=== PATIENT | female | born 1930 | race Caucasian/White ===

== ENCOUNTER 2016-11-01 16:04 | Inpatient (IN) | payer MEDICARE, OTHER ==
[~2016-11-01] VITALS: Ht 160 cm; Wt 67.9 kg
[~2016-11-01 16:04] MED LIST: ALDS; AMIO200T2 PO; CAR120SR PO; DABI150C PO; DIGO125T6 PO; FURO-109 PO; LEVO500V2 PO; LOSA25TA5 PO; METO100T PO; VENL150C94 PO
--- NOTE | 2016-11-01 16:32 | CONS ---
Date/Time of Note Date/Time of Note DATE: 11/01/16 TIME: 16:29 Assessment/Plan Assessment/Plan Chief Complaint/Hosp Course Bradycardia- 2:1 av block on ekg, has rbbb and prolonged pr interval, unclear if supra/infranodal. pt given atrop 0.5 then 1mg iv, hr improved to 36. on dopamine 5cmg as well. remains stable/asymptomatic. given hemodynamic stability and asymptomatic will hold off on temporary pacemaker placement. will watch in ICU on dopamine gtt, atropine at bedside. if symptoms develop or rhythm becomes unstable will need urgent temp ppm placement. - f/u labs, tsh/ft4 - icu monitoring - dopamine gtt can titrate if hr stays < 30 - atropine at bedside, prn - pacer pads - hold metoprolol, amiodraone - npo at mn, potential need for pacemaker but if stable may postpone to see if medication related PAF- hold meds HTN- hold any bp meds Problems: Consultation Date/Type/Reason Admit Date/Time 11/01/2016 Date of Consultation: Nov 01, 2016 Type of Consultation: Cardiology Reason for Consultation Heart Block Referring Provider: BARBARA COATS MD Hx of Present Illness pt seen in pcp office, found to have HR of 25, 2:1 heart block on ecg. sent to ED. pt states no cp/sob. ambulatory no dizziness, lightheadedness. no fainting syncope. pt does have fatigue she states, has noted slow pulse for some time. does not check hr at home. pt hesitatnt to proceed to ed, convinced by family to fainally present. in ed initial sbp 180/60 manual. automatic cuff can not filler picker bp. pt asymptomatic,. ekg with sinus rhythm, 2:1 av block. hr 25 bpm, rbbb. Constitutional: other (fatigue) Eyes: no complaints ENT: no complaints Respiratory: no complaints Gastrointestinal: no complaints Genitourinary: no complaints Musculoskeletal: no complaints Skin: no complaints Neurologic: no complaints Psychological: no complaints Past Medical History Atrial fibrillation (427.31) (I48.91) Cardioverted to NSR by electric D/C cardioversion Feb 2013 Congestive heart failure (428.0) (I50.9) Essential hypertension (401.9) (I10) Fibromyalgia (729.1) (M79.7) Hyperlipidemia (272.4) (E78.5) Hypothyroidism (244.9) (E03.9) Sinus bradycardia (427.89) (R00.1) Past Medical History History of fibromyositis (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) (Z87.39) History of Hyperthyroidism (242.90) (E05.90) TReated with radioactive iodine and became hypothyroid Past Surgical History Past Surgical Hx: other (hysterectomy) Family History Significant Family History: other (no high risk cad) Social History Smoking Status: Never smoker Drug Use: none Exam/Review of Systems Vital Signs Vitals Vital Signs Date Time Temp Pulse Resp B/P Pulse Ox O2 Delivery O2 Flow Rate FiO2 11/01/16 16:07 97.5 32 20 97 Exam Constitutional: alert, oriented, well developed Psych: nl mood/affect, no complaints Head: atraumatic, normocephalic Eyes: nl conjunctiva ENMT: nl external ears & nose, nl lips & teeth, nl nasal mucosa & septum Neck: non-tender, supple, No jvd Respiratory: clear to auscultation, normal air movement Cardiovascular: edema (1+ ble ankles), nl pulses, regular rate and rhythm, systolic murmur Gastrointestinal: non-tender, soft Musculoskeletal: nl extremities to inspection Extremities: normal pulses Neurological: SYSTEM SUPPORT TECHNICIAN II-XII intact, nl mental status, nl speech Skin: nl turgor Procedures Procedures CXR images reviewed: clear EKG per hpi CHAO CALHOUN Nov 01, 2016 16:32
[2016-11-01] MEDS: DOPamine-D5W 1.6 MG/ML 250 ML IV SCH ×2 (17:01→22:39)
--- NOTE | 2016-11-01 17:06 | RADRPT ---
PROCEDURE: XR Chest. CLINICAL INDICATION: Shortness of breath. TECHNIQUE: Single frontal view. COMPARISON: 10/18/2012. FINDINGS: The lungs are clear. The heart is mildly enlarged. There is calcification in the aorta consistent with atherosclerosis. There is no pleural effusion or pneumothorax. There is right shoulder calcific tendonitis. IMPRESSION: 1. Mild cardiomegaly. 2. Atherosclerosis. 3. Right shoulder calcific tendonitis. RPTAT: QQ .Pio Combs MD, MD Date Time Electronically viewed and signed by .Pio Combs MD, MD on 11/01/2016 17:06 .R/
[2016-11-01 17:30] LABS: BASOPHILS % 0.8 % (0.0-2.0); EOSINOPHILS # 0.1 10^3/ul (0.0-0.5); EOSINOPHILS % 1.3 % (0.0-7.0); HEMATOCRIT 35.7 % (37.0-47.0); LYMPHOCYTES # 1.3 10^3/ul (0.8-2.9); LYMPHOCYTES % 24.9 % (15.0-51.0); MEAN CORPUSCULAR HEMOGLOBIN 35.9 pg (29.0-33.0); MEAN CORPUSCULAR HGB CONC 33.6 g/dl (32.0-37.0); MEAN CORPUSCULAR VOLUME 106.9 fl (82.0-101.0); MEAN PLATELET VOLUME 11.1 fl (7.4-10.4); MONOCYTE # 0.7 10^3/ul (0.3-0.9); NEUTROPHIL # 3.1 10^3/ul (1.6-7.5); NEUTROPHILS % 59.6 % (39.0-77.0); PLATELET COUNT 155 10^3/UL (140-415); RED BLOOD COUNT 3.34 10^6/ul (4.20-5.40); RED CELL DISTRIBUTION WIDTH 13.2 % (11.5-14.5); WHITE BLOOD COUNT 5.2 10^3/ul (4.8-10.8)
[2016-11-01] MEDS ORDERED: AMIO100T4 PO (17:31)
[2016-11-01] MEDS ORDERED: FURO40TA4 PO (17:32)
[2016-11-01] MEDS ORDERED: LEVO137T3 PO (17:32)
[2016-11-01] MEDS ORDERED: METO100T13 PO (17:33)
[2016-11-01] MEDS ORDERED: LOSA25TA5 PO (17:33)
[2016-11-01] MEDS ORDERED: DABI150C PO (17:34)
[2016-11-01] MEDS ORDERED: ALDS PO (17:35)
[2016-11-01] MEDS: DEXTROSE 5%-0.45% NACL 1,000 ML IV SCH (17:46)
[2016-11-01 17:50] LABS: INR 2.84; PROTIME 30.2 Sec (12.2-14.2); PT RATIO 2.4
[2016-11-01 17:53] LABS: CALCIUM 9.6 mg/dl (8.4-10.2); CREATININE 1.81 mg/dl (0.44-1.00); POTASSIUM 4.6 mmol/L (3.5-5.1)
[2016-11-01 17:57] LABS: PARTIAL THROMBOPLASTIN TIME 91.5 Sec (25.0-35.0)
[2016-11-01] MEDS ORDERED: ATROPINE 1 MG/10 ML SYRINGE IV ONE ×2 (18:00)
[2016-11-01] MEDS ORDERED: BISACODYL (EC) 5 MG TAB PO PRN (18:00)
[2016-11-01] MEDS ORDERED: ONDANSETRON 4 MG INJ IV PRN (18:00)
[2016-11-01] MEDS ORDERED: ALBUTEROL 0.083% (NEB) 2.5 MG/3 ML AMP NEB PRN (18:00)
[2016-11-01 18:05] LABS: TROPONIN-I 0.013 ng/ml (0.00-0.12)
[2016-11-01] MEDS ORDERED: PRAV40TA76 PO (19:30)
[2016-11-01] MEDS ORDERED: TRAM-40 PO (19:31)
[2016-11-01] MEDS ORDERED: DULO60CA59 PO (19:32)
[2016-11-01] MEDS ORDERED: VENL75TA PO (19:33)
--- NOTE | 2016-11-01 20:49 | HP ---
DATE OF ADMISSION: 11/01/2016 HISTORY OF PRESENT ILLNESS: This is one of several [facility] admissions for this 85-year-old woman admitted with chief complaint of weakness and extreme bradycardia. Mrs. Herzog is an 85-year-old patient of mine who was seen in my office today complaining of somewhat being weak. Upon attempting to get her blood pressure it was obtainable with great difficulty, noted that her pulse rate was quite low. The patient was hooked up to EKG machine and noted that her heart rate was somewhere between 25 and 30, blood pressure in the low 100's by palpation and the patient was brought to the emergency room from my office with the above complaints after consultation with her beater out leveling machine, Dr. Tommy Carrion. The patient had been taking the following medications at this point in time, duloxetine 60 mg a day, Lasix 40 mg a day, losartan 25 mg a day, metoprolol succinate 100 mg ER 1 tablet daily, Pradaxa 150 mg 1 twice a day, pravastatin 40 mg 1 tablet a day, aldactone 25 mg half a tablet daily, Synthroid 137 mcg daily, tramadol 50 mg 2 tablets 3 times a day as needed for pain and Tylenol 325 mg p.r.n. Of all those agents the beta-young being the primary one that could affect her heart rate. These medications were all prescribed to her after being hospitalized with congestive heart failure and new onset atrial fibrillation in 2012. The pulse rate was surprisingly asymptomatic, however, on deepening questions she has had more fatigue and more difficulty getting around due to " weakness". PAST HOSPITALIZATIONS: From a medical standpoint her initial episodes of heart failure and congestive heart failure and new onset atrial fibrillation. Also surgically had a hysterectomy, her ovaries left in place. Her deliveries were all vaginal and other than this episode really has had no other medical hospitalizations, at least not any that she recalls. SOCIAL HISTORY: Patient is a and has 5 children, 11 grandchildren and great grandchildren. She does not smoke. Alcohol socially. Does drink coffee. She usually has no difficulty sleeping at night. FAMILY HISTORY: Both parents are . Father age 90 of old age. Mother 76 had heart issues. Four siblings who are in good health. There is a family history of heart disease arthritis, thyroid issues, and questionably also family history of cancer. REVIEW OF SYSTEMS: HEENT: Denies any significant headaches other than tension headaches. No dizziness or other complaints, however, she does have a balance issue. CARDIORESPIRATORY: Denies any recent palpitations. No chest pain or shortness of breath. GASTROINTESTINAL: No melena or hematemesis. Does have some signs of irritable bowel, as well as hyperacidity. GENITOURINARY: Does have urgency. Occasional frequency. LONG TERM CARE PHARMACIST: Post hysterectomy. MUSCULOSKELETAL: Arthritis for which she had seen a administrative services specialist in the past. NEUROPSYCHIATRIC: Possibly some mild depression and general health as above. PHYSICAL EXAMINATION: VITAL SIGNS: Her blood pressure was obtainable at 110/70, that eventually dropped to the 90s. Pulse was 30. Hard to determine the regularity with rate of 25-30 bpm,, temperature 98, O2 sat 92 percent, and respirations 18-20. GENERAL APPEARANCE: The patient was noted to be a well- developed, fairly well-nourished female, at least in my office at my initial evaluation did not appear to be in any acute distress and was oriented to time, place, and person. HEENT: Head was atraumatic. Eyes the pupils were equal, reactive to light and accommodation. Fundi benign. Tympanic membranes were unremarkable. Nose was negative. Mouth was unremarkable. Fair oral hygiene was present. NECK: Supple without any rigidity. Trachea was midline. Thyroid was unremarkable. Neck veins were flat. Carotid pulses were palpable. No obvious bruits were heard. BACK: Back exam was unremarkable. CHEST: Chest was symmetrical. BREAST AND AXILLARY: Breast and axillary exam did not reveal any masses. LUNGS: Relatively clear to percussion and auscultation. HEART: Examination of the heart revealed the PMI in the 5th intercostal space, somewhat to the left of the midclavicular line. Profound bradycardia was noted with what appeared to be at least normal beats with possibly a grade 2/6 systolic ejection murmur heard in left sternal border. ABDOMEN: Soft. Bowel sounds were noted. No significant organomegaly, masses or tenderness. GENITOURINARY: Genitalia, pelvic, rectal exam done or prior digital forensic examiner and reported as being negative and was not repeated at this point in time. EXTREMITIES: Did not reveal any clubbing or cyanosis. Possibly trace edema was noted. Peripheral pulses were physiologic. SKIN: Moist and warm without any eruptions. No gross lymphadenopathy was noted. NEUROLOGIC EXAM: Was intact. IMPRESSION: 1. Probable atrial fibrillation with intermittent heart block and profound bradycardia as low as 24 beats per minute, right bundle branch block. 2. History of paroxysmal atrial fibrillation, status post successful cardioversion. 3. Hypothyroidism. 4. Hypertension. 5. Fibromyalgia. 6. Menopausal syndrome. 7. History of tremors. 8. Degenerative joint disease. DISCUSSION: After consultation with beater out leveling machine, the patient was seen by Dr. Hinton who initiated therapy with dopamine and other appropriate measures. Patient will be admitted to the ICU with monitoring and close observation. Initially should this be for some reason from medication rate should start speeding up as the effects wear off. She had been on amiodarone which was discontinued and she is also on a beta young. Condition on admission is quite guarded and could be considered critical depending upon how patient responds to therapy. Dictated By: Reese Murrieta MD /patel/john /Document#: [id number] SCOTT
[2016-11-01] MEDS: FUROSEMIDE 40 MG TAB PO SCH (21:00)
[2016-11-01] MEDS: DABIGATRAN 150 MG CAP PO SCH (21:00)
[2016-11-01] MEDS: FAMOTIDINE 20 MG INJ IV SCH (22:42)
[2016-11-01] MEDS: LORAZEPAM 2 MG INJ IV PRN (22:42)
[2016-11-01] MEDS ORDERED: ALPRAZOLAM 0.25 MG TAB PO ONE (23:00)
--- NOTE | 2016-11-01 23:02 | ERA ---
ER Documentation Chief Complaint Date/Time DATE: 11/01/16 TIME: 22:56 Chief Complaint sent by PCP for admission to hospital due to abnormal EKG denies CP HPI Patient was sent in by her primary care physician for severe bradycardia. Patient denies chest pain, shortness of breath, fever and chills. He does not usually have a heart rate this low. She has had no neurological symptoms. ROS All systems reviewed and are negative except as per history of present illness. Medications Home Meds Reported Medications Venlafaxine Hcl* (Venlafaxine Hcl*) 75 Mg Tablet, 150 MG PO DAILY, TAB 11/01/16 Duloxetine Hcl* (Duloxetine Hcl*) 60 Mg Capsule.dr, 60 MG PO DAILY, #30 CAP 11/01/16 Tramadol Hcl* (Ultram*) 50 Mg Tablet, 50 MG PO Q6H Y for PAIN, TAB 11/01/16 Pravastatin Sodium* (Pravastatin Sodium*) 40 Mg Tablet, 40 MG PO HS, TAB 11/01/16 Spironolactone* (Aldactone*) 5 Mg/Ml (COMPOUNDED) Susp, 12.5 MG PO DAILY for 30 Days, ML (COMPOUNDED) 11/01/16 Dabigatran Etexilate Mesylate* (Pradaxa*) 150 Mg Capsule, 150 MG PO BID, CAP 11/01/16 Metoprolol Succinate* (Toprol XL*) 100 Mg Tab.sr.24h, 100 MG PO DAILY, #30 TAB 11/01/16 Losartan Potassium* (Losartan Potassium*) 25 Mg Tablet, 25 MG PO DAILY, TAB 11/01/16 Levothyroxine Sodium* (Levothyroxine Sodium*) 137 Mcg Tablet, 137 MCG PO BEFORE BREAKFAST, #30 TAB 11/01/16 Furosemide* (Furosemide*) 40 Mg Tablet, 40 MG PO BID, TAB 11/01/16 Amiodarone Hcl* (Amiodarone Hcl*) 100 Mg Tablet, 100 MG PO DAILY, #30 TAB 11/01/16 Discontinued Reported Medications Dabigatran Etexilate Mesylate* (Pradaxa*) 150 Mg Capsule, 150 MG PO DAILY 02/26/13 Amiodarone Hcl* (Amiodarone Hcl*) 200 Mg Tablet, 200 MG PO DAILY 02/26/13 Furosemide* (Lasix*) 40 Mg Tablet, 40 MG PO DAILY 02/26/13 Digoxin* (Lanoxin*) 125 Mcg Tablet, 0.125 MCG PO DAILY 02/26/13 Spironolactone* (Aldactone*) 5 Mg/Ml Susp, 25 MG DAILY 02/26/13 Metoprolol (Lopressor) 100 Mg Tablet, 200 MG PO DAILY 02/26/13 Diltiazem Hcl (Diltiazem) 120 Mg Capsr, 120 MG PO DAILY 02/26/13 Losartan Potassium* (Losartan Potassium*) 25 Mg Tablet, 25 MG PO DAILY 02/26/13 Levothyroxine Sodium* (Levothyroxine* INJ) 500 Mcg Soln, 137 MCG PO DAILY 10/15/12 Venlafaxine Hcl* (Venlafaxine Hcl ER*) 150 Mg Cap.er.24h, 150 MG PO DAILY 10/15/12 Allergies Allergies: Coded Allergies: No Known Allergies (Verified Allergy, Unknown, 11/01/16) PMhx/Soc History of Surgery: Yes (HYSTERECTOMY, THYROIDECTOMY) Anesthesia Reaction: No Hx Neurological Disorder: No Hx Respiratory Disorders: No Hx Cardiac Disorders: Yes (NEW ONSET A FIB, BRADYCARDIA W/ HR IN THE 20'S, HTN) Hx Psychiatric Problems: Yes (DEPRESSION) Hx Miscellaneous Medical Probl: Yes (hypothyroid,fibromyalgia) Hx Alcohol Use: Yes (WINE ) Hx Substance Use: No Hx Tobacco Use: No Smoking Status: Never smoker Physical Exam Vitals Vital Signs Date Time Temp Pulse Resp B/P Pulse Ox O2 Delivery O2 Flow Rate FiO2 11/01/16 22:30 28 16 113/79 100 Nasal Cannula 2.0 11/01/16 22:15 98.2 28 22 138/88 100 Nasal Cannula 2.0 11/01/16 22:00 97.5 27 17 112/62 100 Nasal Cannula 2.0 11/01/16 21:45 33 21 152/66 97 Nasal Cannula 2.0 11/01/16 21:30 31 16 163/105 97 Nasal Cannula 2.0 11/01/16 21:15 29 16 150/62 99 Nasal Cannula 2.0 11/01/16 21:05 29 16 142/68 98 Nasal Cannula 2.0 11/01/16 20:50 27 16 135/96 97 Nasal Cannula 2.0 11/01/16 20:30 26 12 127/95 98 Nasal Cannula 2.0 11/01/16 20:15 28 16 116/44 99 Nasal Cannula 2.0 11/01/16 20:00 36 14 118/51 100 Nasal Cannula 2.0 11/01/16 19:45 35 21 110/47 100 Nasal Cannula 2.0 11/01/16 19:30 33 14 112/50 100 Nasal Cannula 2.0 11/01/16 19:15 32 16 107/47 98 Nasal Cannula 2.0 11/01/16 18:50 30 16 94/41 99 Nasal Cannula 2.0 11/01/16 18:40 30 13 92/42 96 Nasal Cannula 2.0 11/01/16 18:30 30 17 95/39 99 Nasal Cannula 2.0 11/01/16 18:15 30 13 104/44 100 Nasal Cannula 2.0 11/01/16 17:48 37 16 133/48 100 Nasal Cannula 2.0 11/01/16 17:22 31 15 108/42 100 Nasal Cannula 2.0 11/01/16 16:45 25 15 180/60 95 Room Air 11/01/16 16:45 Nasal Cannula 2 11/01/16 16:07 97.5 32 20 97 Physical Exam Const: [] No acute distress Head: Atraumatic Eyes: Normal Conjunctiva ENT: Normal External Ears, Nose and Mouth. Neck: Full range of motion..~ No meningismus. Resp: Mild decreased bibasilar breath sounds Cardio: Severe bradycardia, no murmurs Abd: Soft, non tender, non distended. Normal bowel sounds Skin: No petechiae or rashes Back: No midline or flank tenderness Ext: No cyanosis, or edema Neur: Awake and alert and oriented 3, no focal depth Psych: Normal Mood and Affect Result Diagram: 11/01/16 1705 11/01/16 170 Results 24 hrs Laboratory Tests Test 11/01/16 17:05 White Blood Count 5.210^3/ul Red Blood Count 3.3410^6/ul Hemoglobin 12.0g/dl Hematocrit 35.7% Mean Corpuscular Volume 106.9fl Mean Corpuscular Hemoglobin 35.9pg Mean Corpuscular Hemoglobin Concent 33.6g/dl Red Cell Distribution Width 13.2% Platelet Count 16471^3/UL Mean Platelet Volume 11.1fl Neutrophils % 59.6% Lymphocytes % 24.9% Monocytes % 13.0% Eosinophils % 1.3% Basophils % 0.8% Nucleated Red Blood Cells % 0.0/100WBC Neutrophils # 3.110^3/ul Lymphocytes # 1.310^3/ul Monocytes # 0.710^3/ul Eosinophils # 0.110^3/ul Basophils # 0.010^3/ul Nucleated Red Blood Cells # 0.010^3/ul Prothrombin Time 30.2Sec Prothrombin Time Ratio 2.4 INR International Normalized Ratio 2.84 Activated Partial Thromboplast Time 91.5Sec Sodium Level 138mmol/L Potassium Level 4.6mmol/L Chloride Level 99mmol/L Carbon Dioxide Level 22mmol/L Anion Gap 22 Blood Urea Nitrogen 50mg/dl Creatinine 1.81mg/dl Glucose Level 100mg/dl Calcium Level 9.6mg/dl Troponin I 0.013ng/ml B-Type Natriuretic Peptide 1810PG/ML Thyroid Stimulating Hormone (TSH) 2.830MIU/L Free Thyroxine 2.43ng/dl Current Medications Medications (Trade) Dose Ordered Sig/Raymundo Route PRN Reason Start Time Stop Time Status Last Admin Dose Admin Dopamine HCl/ Dextrose 250 ml @ 5.025 mls/ hr TITRATE IV 11/01/16 17:00 11/01/16 22:39 Atropine Sulfate (Atropine (Syringe)) 0.5 mg ONCE ONCE IV 11/01/16 18:00 11/01/16 18:01 DC 11/01/16 16:55 Atropine Sulfate (Atropine (Syringe)) 1 mg ONCE ONCE IV 11/01/16 18:00 11/01/16 18:01 DC 11/01/16 17:10 Dabigatran (PRADaxa) 150 mg BID PO 11/01/16 21:00 UNV Furosemide (Lasix) 40 mg BID DIURETICS PO 11/01/16 21:00 Levothyroxine Sodium (Synthroid) 137 mcg BEFORE BREAKFAST PO 11/02/16 07:00 UNV Losartan Potassium (Cozaar) 25 mg DAILY PO 11/02/16 09:00 Spironolactone 12.5 mg 12.5 mg DAILY PO 11/02/16 09:00 Dextrose/Sodium Chloride (D5-1/2ns) 1,000 ml @ 60 mls/hr [id number] IV 11/01/16 17:46 11/01/16 17:46 IV Flush (NS 3 ml) 3 ml PER PROTOCOL IV 11/01/16 18:00 Ondansetron HCl (Zofran Inj) 4 mg Q6H PRN IV NAUSEA AND/OR VOMITING 11/01/16 18:00 Albuterol (Proventil 0.083% (Neb)) 2.5 mg Q2H RESP THERAPY PRN NEB SHORTNESS OF BREATH 11/01/16 18:00 Acetaminophen (Tylenol Tab) 650 mg Q6H PRN PO PAIN LEVEL 1-3 OR FEVER 11/01/16 18:00 Lorazepam (Ativan) 1 mg Q2H PRN IV ANXIETY 11/01/16 18:00 11/01/16 22:42 Zolpidem Tartrate (Ambien) 5 mg QHS PRN PO INSOMNIA 11/01/16 18:00 Bisacodyl (Dulcolax) 5 mg DAILY PRN PO CONSTIPATION 11/01/16 18:00 Famotidine (Pepcid Iv) 20 mg DAILY IV 11/01/16 21:00 11/01/16 22:42 Procedures/MDM Severe bradycardia and hypotension. 2-1 heart block on EKG. Patient was immediately placed on a monitor and started on a dopamine drip. Dr. Adler did come to the emergency room and see the patient. He gave the patient some atropine as well. Transient heart rate increases with dopamine. Dopamine did need to be increased patient became hypotensive again. She did have some confusion as well. No signs of acute cardiac ischemia currently. She is being admitted to ICU for further monitoring likely have a permanent pacemaker placed. Dr. Min is admitting. I did speak with Dr. Polo who is Guillermo aware of the patient. EKG interpretation: Sinus bradycardia rate of 26, right bundle branch block, normal axis, no ST or T-wave changes concerning for acute ischemia. Chronic monitor interpretation: Sinus bradycardia rate of 20s, after dopamine menstruation rate of 30s and 40s. Chest x-ray interpretation: I see no acute process. I see no pneumothorax, no infiltrates, no pulmonary edema, no fractures Critical care time 45 minutes: This includes treatment of severe bradycardia and hypotension, use of dopamine drip, multiple visits the patient's bedside to reassess status and give nursing instructions for drip, chart reviewed, discussion with multiple physicians as well as production engine repairer. This does not include any billable procedures. Departure Diagnosis: Primary Impression: Heart block Additional Impressions: Severe sinus bradycardia Hypotension Renal insufficiency Condition: Critical SONIA JIMENEZ DO Nov 01, 2016 23:02
[2016-11-02] VITALS (61 sets, daily range): BP systolic 82–166; BP diastolic 39–131; PULSE 31–50; RESP 8–40; TEMP 98.6; Ht 160 cm; Wt 67.9 kg
[2016-11-02 00:15] LABS: CK-MB 2.33 ng/ml (0.0-2.4); TROPONIN-I 0.013 ng/ml (0.00-0.12)
[2016-11-02] MEDS: LORAZEPAM 2 MG INJ IV PRN (00:46)
[2016-11-02] MEDS ORDERED: PHENTOLAMINE 5 MG INJ SC ONE (02:00)
[2016-11-02] MEDS: DOPamine-D5W 1.6 MG/ML 250 ML IV SCH ×3 (03:54→21:33)
[2016-11-02 06:01] LABS: ABNORMAL IP MESSAGE 1; BASOPHILS % 0.2 % (0.0-2.0); EOSINOPHILS % 0.1 % (0.0-7.0); HEMATOCRIT 35.5 % (37.0-47.0); HEMOGLOBIN 12.4 g/dl (12.0-16.0); LYMPHOCYTES # 0.9 10^3/ul (0.8-2.9); LYMPHOCYTES % 7.5 % (15.0-51.0); MEAN CORPUSCULAR HEMOGLOBIN 36.3 pg (29.0-33.0); MEAN CORPUSCULAR HGB CONC 34.9 g/dl (32.0-37.0); MEAN CORPUSCULAR VOLUME 103.8 fl (82.0-101.0); MEAN PLATELET VOLUME 10.4 fl (7.4-10.4); MONOCYTE # 2.3 10^3/ul (0.3-0.9); MONOCYTES % 19.6 % (0.0-11.0); NEUTROPHIL # 8.4 10^3/ul (1.6-7.5); NEUTROPHILS % 72.2 % (39.0-77.0); PLATELET COUNT 151 10^3/UL (140-415); RED BLOOD COUNT 3.42 10^6/ul (4.20-5.40); RED CELL DISTRIBUTION WIDTH 12.6 % (11.5-14.5); WHITE BLOOD COUNT 11.7 10^3/ul (4.8-10.8)
[2016-11-02 06:23] LABS: POSITIVE DIFF @See below
[2016-11-02 06:47] LABS: CK-MB 2.35 ng/ml (0.0-2.4); TROPONIN-I 0.053 ng/ml (0.00-0.12)
[2016-11-02] MEDS ORDERED: ATROPINE 1 MG/10 ML SYRINGE ONE (07:00)
[2016-11-02 07:15] LABS: ALBUMIN 4.1 g/dl (3.3-4.9); ALBUMIN/GLOBULIN RATIO 1.51; BILIRUBIN,INDIRECT 0.6 mg/dl (0-1.1); BILIRUBIN,TOTAL 0.6 mg/dl (0.2-1.3); CALCIUM 9.5 mg/dl (8.4-10.2); CREATININE 1.69 mg/dl (0.44-1.00); POTASSIUM 4.4 mmol/L (3.5-5.1); TOTAL PROTEIN 6.8 g/dl (6.1-8.1)
--- NOTE | 2016-11-02 08:55 | CONS ---
Date/Time of Note Date/Time of Note DATE: 11/02/16 TIME: 08:48 Assessment/Plan Assessment/Plan Chief Complaint/Hosp Course Bradycardia- 2:1 fixed av block, likely 2nd degree type 2 avb. pt was on high dose beta young and amiodarone, unclear if medication related vs. intrinsic avn disease. pt clinically stable at this time with hr of 30 on dopamine gtt, holding avn blockers. given hemodynamic stability and asymptomatic will hold off on temporary pacemaker placement. will cont to watch in ICU for additional 24hrs on dopamine gtt, atropine at bedside. if symptoms develop or rhythm becomes unstable will need urgent temp ppm placement. - repeat ekg, - echo pending - icu monitoring - dopamine gtt can titrate if hr stays < 30 - atropine at bedside, prn - pacer pads - hold metoprolol, amiodarone - hold off on ppm placement given high dose of avn blockers, if no improvement in next 24 hrs may require permanent ppm placement - ok to advance diet today, but npo at al tomorrow PAF- hold meds HTN- hold any bp meds Problems: Consultation Date/Type/Reason Admit Date/Time 11/01/2016 Initial Consult Date 11/01/16 Type of Consultation: Cardiology Referring Provider: BARBARA COATS MD 24 HR Interval Summary Free Text/Dictation pt more agitated overnight per nursing, given iv ativan. now appears fatigued, slightly confused. however able to answer questions, able to be aroused. no complaints of dizziness, lightheadedness, chest pain, sob. tele reviewed: 2:1 heart block, rate low 30s. no pauses Constitutional: disoriented Detailed Summary ENT: no complaints Respiratory: no complaints Cardiovascular: no complaints Gastrointestinal: no complaints Exam/Review of Systems Vital Signs Vitals Vital Signs Date Time Temp Pulse Resp B/P Pulse Ox O2 Delivery O2 Flow Rate FiO2 11/02/16 07:30 98.6 31 17 111/45 99 Nasal Cannula 2.0 Exam Constitutional: alert, oriented, well developed Psych: nl mood/affect, no complaints Head: atraumatic, normocephalic Eyes: nl conjunctiva ENMT: nl external ears & nose, nl lips & teeth, nl nasal mucosa & septum Neck: non-tender, supple, No jvd Respiratory: clear to auscultation, normal air movement Cardiovascular: edema (1+ ble ankles), nl pulses, regular rate and rhythm, systolic murmur Gastrointestinal: non-tender, soft Musculoskeletal: nl extremities to inspection Extremities: normal pulses Neurological: [employer] II-XII intact, nl mental status, nl speech Skin: nl turgor Results Result Diagram: 11/02/16 0534 11/02/16 0534 Results 24 hrs Laboratory Tests Test 11/01/16 17:05 11/01/16 23:18 11/02/16 05:34 11/02/16 06:49 White Blood Count 5.2 11.7 #H Red Blood Count 3.34 L 3.42 L Hemoglobin 12.0 12.4 Hematocrit 35.7 L 35.5 L Mean Corpuscular Volume 106.9 H 103.8 H Mean Corpuscular Hemoglobin 35.9 H 36.3 H Mean Corpuscular Hemoglobin Concent 33.6 34.9 Red Cell Distribution Width 13.2 12.6 Platelet Count 155 151 Mean Platelet Volume 11.1 H 10.4 Neutrophils % 59.6 72.2 Lymphocytes % 24.9 7.5 L Monocytes % 13.0 H 19.6 H Eosinophils % 1.3 0.1 Basophils % 0.8 0.2 Nucleated Red Blood Cells % 0.0 0.0 Neutrophils # 3.1 8.4 H Lymphocytes # 1.3 0.9 Monocytes # 0.7 2.3 H Eosinophils # 0.1 0.0 Basophils # 0.0 0.0 Nucleated Red Blood Cells # 0.0 0.0 Prothrombin Time 30.2 H Prothrombin Time Ratio 2.4 INR International Normalized Ratio 2.84 Activated Partial Thromboplast Time 91.5 *H Sodium Level 138 138 Potassium Level 4.6 4.4 Chloride Level 99 101 Carbon Dioxide Level 22 19 L Anion Gap 22 H 22 H Blood Urea Nitrogen 50 H 47 H Creatinine 1.81 H 1.69 H Glucose Level 100 173 Calcium Level 9.6 9.5 Troponin I 0.013 0.013 0.053 B-Type Natriuretic Peptide 1810 H Thyroid Stimulating Hormone (TSH) 2.830 Free Thyroxine 2.43 H Creatine Kinase 40 53 Creatine Kinase Index 5.8 4.4 Creatinine Kinase MB (Mass) 2.33 2.35 Total Bilirubin 0.6 Direct Bilirubin 0.00 Indirect Bilirubin 0.6 Aspartate Amino Transf (AST/SGOT) 40 Alanine Aminotransferase (ALT/SGPT) 34 Alkaline Phosphatase 62 Total Protein 6.8 Albumin 4.1 Globulin 2.70 Albumin/Globulin Ratio 1.51 Bedside Glucose 161 Medications Medications Current Medications Dopamine HCl/ Dextrose 250 ml @ 5.025 mls/ hr TITRATE IV Last administered on 11/02/16 03:54; Admin Dose 37.688 MLS/HR; Start 11/01/16 at 17:00 Dabigatran (PRADaxa) 150 mg BID PO ; Start 11/01/16 at 21:00 Losartan Potassium (Cozaar) 25 mg DAILY PO ; Start 11/02/16 at 09:00 Spironolactone 12.5 mg 12.5 mg DAILY PO ; Start 11/02/16 at 09:00 Dextrose/Sodium Chloride (D5-1/2ns) 1,000 ml @ 60 mls/hr [id number] IV Last administered on 11/01/16 17:46; Admin Dose 60 MLS/HR; Start 11/01/16 at 17:46 Ondansetron HCl (Zofran Inj) 4 mg Q6H PRN IV NAUSEA AND/OR VOMITING; Start 11/01 at 18:00 Acetaminophen (Tylenol Tab) 650 mg Q6H PRN PO PAIN LEVEL 1-3 OR FEVER; Start at 18:00 Lorazepam (Ativan) 1 mg Q2H PRN IV ANXIETY Last administered on 11/02/16 00:46 ; Admin Dose 1 MG; Start 11/01/16 at 18:00 Zolpidem Tartrate (Ambien) 5 mg QHS PRN PO INSOMNIA; Start 11/01/16 at 18:00 Bisacodyl (Dulcolax) 5 mg DAILY PRN PO CONSTIPATION; Start 11/01/16 at 18:00 Famotidine (Pepcid Iv) 20 mg DAILY IV Last administered on 11/01/16 22:42; Admin Dose 20 MG; Start 11/01/16 at 21:00 Procedures Procedures cxr report reviewed no acute process CHAO CALHOUN Nov 02, 2016 08:55
[2016-11-02] MEDS: DABIGATRAN 150 MG CAP PO SCH (09:00)
[2016-11-02] MEDS ORDERED: SPIRONOLACTONE 25 MG TAB PO SCH (09:00)
[2016-11-02] MEDS ORDERED: LOSARTAN 25 MG TAB PO SCH (09:00)
[2016-11-02] MEDS: DEXTROSE 5%-0.45% NACL 1,000 ML IV SCH ×2 (09:41→20:24)
[2016-11-02] MEDS: FAMOTIDINE 20 MG INJ IV SCH (09:50)
[2016-11-02] MEDS: FUROSEMIDE 40 MG TAB PO SCH (09:51)
[2016-11-02] MEDS: LEVOTHYROXINE 137 MCG TAB PO SCH (09:52)
--- NOTE | 2016-11-02 10:25 | PN ---
Date/Time of Note Date/Time of Note DATE: 11/02/16 TIME: 10:13 Assessment/Plan VTE Prophylaxis VTE Prophylaxis Intervention: other (pradaxa) Lines/Catheters IV Catheter Type (from Nrs): Peripheral IV Urinary Cath still in place: Yes Reason Cath still needed: pres ulcer contaminated by urine Assessment/Plan Chief Complaint/Hosp Course still sever bradycardic plan is still to observe possibility of medicine induced problem still present.agree with cook pickled meat plan Problems: Assessment/Plan 1 per cardiology 2 d/c sedation probably responsible for confusion and lethargy 3 encourage oral fluids now that patient will not be NPO 4 may consider getting out of bed in a chair Subjective 24 Hr Interval Summary Constitutional: no complaints Eyes: no complaints Respiratory: no complaints Cardiovascular: no complaints Gastrointestinal: no complaints Genitourinary: no complaints Skin: no complaints Neurologic: confusion Endocrine: no complaints Psychological: confusion Exam/Review of Systems Vital Signs Vitals Vital Signs Date Time Temp Pulse Resp B/P Pulse Ox O2 Delivery O2 Flow Rate FiO2 11/02/16 08:15 Nasal Cannula 2.0 11/02/16 08:10 32 11/02/16 07:30 98.6 17 111/45 99 Exam Constitutional: alert Psych: confusion Head: normocephalic ENMT: nl external ears & nose Respiratory: clear to auscultation Cardiovascular: other (bradycardia) Extremities: edema Neurological: confused, lethargic Results Result Diagram: 11/02/16 0534 11/02/16 0534 Results 24 hrs Laboratory Tests Test 11/01/16 17:05 11/01/16 23:18 11/02/16 05:34 11/02/16 06:49 White Blood Count 5.2 11.7 #H Red Blood Count 3.34 L 3.42 L Hemoglobin 12.0 12.4 Hematocrit 35.7 L 35.5 L Mean Corpuscular Volume 106.9 H 103.8 H Mean Corpuscular Hemoglobin 35.9 H 36.3 H Mean Corpuscular Hemoglobin Concent 33.6 34.9 Red Cell Distribution Width 13.2 12.6 Platelet Count 155 151 Mean Platelet Volume 11.1 H 10.4 Neutrophils % 59.6 72.2 Lymphocytes % 24.9 7.5 L Monocytes % 13.0 H 19.6 H Eosinophils % 1.3 0.1 Basophils % 0.8 0.2 Nucleated Red Blood Cells % 0.0 0.0 Neutrophils # 3.1 8.4 H Lymphocytes # 1.3 0.9 Monocytes # 0.7 2.3 H Eosinophils # 0.1 0.0 Basophils # 0.0 0.0 Nucleated Red Blood Cells # 0.0 0.0 Prothrombin Time 30.2 H Prothrombin Time Ratio 2.4 INR International Normalized Ratio 2.84 Activated Partial Thromboplast Time 91.5 *H Sodium Level 138 138 Potassium Level 4.6 4.4 Chloride Level 99 101 Carbon Dioxide Level 22 19 L Anion Gap 22 H 22 H Blood Urea Nitrogen 50 H 47 H Creatinine 1.81 H 1.69 H Glucose Level 100 173 Calcium Level 9.6 9.5 Troponin I 0.013 0.013 0.053 B-Type Natriuretic Peptide 1810 H Thyroid Stimulating Hormone (TSH) 2.830 Free Thyroxine 2.43 H Creatine Kinase 40 53 Creatine Kinase Index 5.8 4.4 Creatinine Kinase MB (Mass) 2.33 2.35 Total Bilirubin 0.6 Direct Bilirubin 0.00 Indirect Bilirubin 0.6 Aspartate Amino Transf (AST/SGOT) 40 Alanine Aminotransferase (ALT/SGPT) 34 Alkaline Phosphatase 62 Total Protein 6.8 Albumin 4.1 Globulin 2.70 Albumin/Globulin Ratio 1.51 Bedside Glucose 161 Medications Medications Current Medications Dopamine HCl/ Dextrose 250 ml @ 5.025 mls/ hr TITRATE IV Last administered on 11/02/16 03:54; Admin Dose 37.688 MLS/HR; Start 11/01/16 at 17:00 Dabigatran (PRADaxa) 150 mg BID PO ; Start 11/01/16 at 21:00 Losartan Potassium (Cozaar) 25 mg DAILY PO ; Start 11/02/16 at 09:00 Spironolactone 12.5 mg 12.5 mg DAILY PO Last administered on 11/02/16 09:50; Admin Dose 12.5 MG; Start 11/02/16 at 09:00 Dextrose/Sodium Chloride (D5-1/2ns) 1,000 ml @ 100 mls/hr Q10H IV Last administered on 11/02/16 09:41; Admin Dose 100 MLS/HR; Start 11/01/16 at 17:46 Ondansetron HCl (Zofran Inj) 4 mg Q6H PRN IV NAUSEA AND/OR VOMITING; Start 11/01 at 18:00 Acetaminophen (Tylenol Tab) 650 mg Q6H PRN PO PAIN LEVEL 1-3 OR FEVER; Start at 18:00 Lorazepam (Ativan) 1 mg Q2H PRN IV ANXIETY Last administered on 11/02/16 00:46 ; Admin Dose 1 MG; Start 11/01/16 at 18:00 Zolpidem Tartrate (Ambien) 5 mg QHS PRN PO INSOMNIA; Start 11/01/16 at 18:00 Bisacodyl (Dulcolax) 5 mg DAILY PRN PO CONSTIPATION; Start 11/01/16 at 18:00 Famotidine (Pepcid Iv) 20 mg DAILY IV Last administered on 11/02/16 09:50; Admin Dose 20 MG; Start 11/01/16 at 21:00 BARBARA COATS MD Nov 02, 2016 10:24
[2016-11-02] MEDS: DIAZEPAM 5 MG/ML SYG IV PRN ×2 (11:05→21:57)
[2016-11-02] MEDS ORDERED: DIAZEPAM 5 MG/ML SYG IV ONE (12:00)
[2016-11-02] MEDS ORDERED: HALOPERIDOL 5 MG INJ IV PRN ×2 (15:00→21:00)
[2016-11-02] MEDS: QUETIAPINE 25 MG TAB PO PRN (15:51)
--- NOTE | 2016-11-02 17:00 | RADRPT ---
Echocardiogram Report Patient Name: NATALEE DEL CASTILLO Gender: Female Date: 1930 Study Date: 02-Nov-2016 Dairy Management Specialist: J Luis Mendieta [facility] Location: 104 Ref. Physician: PACO CALHOUN Quality: Adequate Procedures: Transthoracic echocardiogram with complete 2D, M-Mode, and doppler examination. Indications: Heart Block. 2D/M Mode Doppler Measurement Value Normal Ranges Measurement Value Normal Ranges LVIDd 2D 4.8 3.5 - 5.6 cm SHAVON Vmax 0.8 cm2 LVIDs 2D 2.9 2.1 - 4.1 cm SHAVON VTI 0.9 cm2 FS 2D 39.8 % AV Mean Lloyd 2.1 m/sec LVPWd 2D 0.9 0.6 - 1.1 cm AV Mean PG 21.0 mmHg IVSd 2D 0.9 0.6 - 1.1 cm AV Peak Lloyd 3.4 m/sec IVS/LVPW 2D 1.0 AV Peak PG 46.0 mmHg AoR Diam 2D 2.8 2.0 - 3.7 cm AV VTI 85.0 cm LA/Ao 2D 2 0 - 1 LVOT Peak Lloyd 1.1 m/sec EDV 2D 113.0 cm3 LVOT Peak PG 5.0 mmHg ESV 2D 24.6 cm3 MV E Peak Lloyd 1.4 m/sec LA Dimen 2D 4.2 2.3 - 4.0 cm MV A Peak Lloyd 0.9 m/sec LVOT Diam 1.8 cm MV E/A 1.4 LVOT Area 2.5 cm2 MV Decel Time 232 msec MV E/A 1.4 MR Peak PG 33.0 mmHg MR Peak Lloyd 2.9 m/sec TR Peak Lloyd 3.3 m/sec TR Peak PG 43.0 mmHg RVSP 51.0 mmHg Findings Left Ventricle: Hyperdynamic left ventricular systolic function. Normal left ventricular cavity size. Normal left ventricular wall thickness. Ejection fraction is visually estimated at 70 %. Tissue Doppler/Mitral Doppler indices are consistent with impaired relaxation (Stage I diastolic dysfunction). Right Ventricle: Normal right ventricular size. Normal right ventricular systolic function. Left Atrium: There is mild enlargement of left atrium. Right Atrium: The right atrium is normal in size. Mitral Valve: Mitral valve leaflets appear mildly thickened. Mild mitral annular calcification. Mild mitral valve regurgitation. Aortic Valve: Moderate aortic stenosis. Aortic valve Max velocity 3.40 m/sec. Max PG 46.00 mmHg. Mean PG 21.00 mmHg. Aortic valve area 0.90 cm2. Aortic cusps appear moderately calcified. Trileaflet aortic valve. Tricuspid Valve: Normal appearance of the tricuspid valve. Right ventricular systolic pressure is consistent with moderate pulmonary hypertension. Estimated peak PA systolic pressure 51 mmHg. There is moderate tricuspid regurgitation. Pulmonic Valve: Pulmonic valve not well visualized. There is mild pulmonic regurgitation. Pericardium: Normal pericardium with no significant pericardial effusion. Aorta: Normal aortic root. IVC: Dilated IVC with respiratory collapse consistent with elevated right atrial pressure. Conclusions Hyperdynamic left ventricular systolic function. Normal left ventricular cavity size. Normal left ventricular wall thickness. Ejection fraction is visually estimated at 70 %. Tissue Doppler/Mitral Doppler indices are consistent with impaired relaxation (Stage I diastolic dysfunction). Normal right ventricular size. Normal right ventricular systolic function. There is mild enlargement of left atrium. Moderate aortic stenosis. Aortic valve Max velocity 3.40 m/sec. Max PG 46.00 mmHg. Mean PG 21.00 mmHg. Aortic valve area 0.90 cm2. Aortic cusps appear moderately calcified. Trileaflet aortic valve. Normal appearance of the tricuspid valve. Right ventricular systolic pressure is consistent with moderate pulmonary hypertension. Estimated peak PA systolic pressure 51 mmHg. There is moderate tricuspid regurgitation. Dilated IVC with respiratory collapse consistent with elevated right atrial pressure. No Vegetation, masses, or thrombi seen. Electronically Signed By: Paco Calhoun 02-Nov-2016 17:00:00 -0700 Patient Name: NATALEE DEL CASTILLO Study Date: 02-Nov-2016 [id number]
--- NOTE | 2016-11-02 17:10 | QN ---
Documentation Comment Patient continues with 2:1 av block, case discussed with EP Dr. Burnett. Per his recommendations will plan is for PPM tomorrow afternoon with anesthesia at 4:00pm. -please keep npo at mn -obtain left AC IV -stop all anticoagulants -hold all bp meds/diuretics -cont ivf hydration -d/c dopamine and start isoproterenol CHAO CALHOUN Nov 02, 2016 17:10
[2016-11-02] MEDS ORDERED: DEXTROSE 5% IV SCH (17:30)
[2016-11-02] MEDS ORDERED: POLYMYXIN/BACITRACIN 1L IRRIG IRR ONE (17:30)
[2016-11-02] MEDS ORDERED: ISOPROTERENOL IV SCH (17:30)
[2016-11-02] MEDS: ZOLPIDEM 5 MG TAB PO PRN (20:25)
[2016-11-03] VITALS (68 sets, daily range): BP systolic 90–191; BP diastolic 23–150; PULSE 32–72; RESP 12–37
[2016-11-03] MEDS: DIAZEPAM 5 MG/ML SYG IV PRN (00:19)
[2016-11-03] MEDS: DOPamine-D5W 1.6 MG/ML 250 ML IV SCH ×2 (04:49→13:43)
[2016-11-03] MEDS: DEXTROSE 5%-0.45% NACL 1,000 ML IV SCH ×2 (04:52→12:47)
[2016-11-03 05:35] LABS: BASOPHILS % 0.4 % (0.0-2.0); EOSINOPHILS # 0.1 10^3/ul (0.0-0.5); HEMATOCRIT 32.5 % (37.0-47.0); HEMOGLOBIN 11.2 g/dl (12.0-16.0); LYMPHOCYTES % 12.2 % (15.0-51.0); MEAN CORPUSCULAR HEMOGLOBIN 36.4 pg (29.0-33.0); MEAN CORPUSCULAR HGB CONC 34.5 g/dl (32.0-37.0); MEAN CORPUSCULAR VOLUME 105.5 fl (82.0-101.0); MEAN PLATELET VOLUME 10.5 fl (7.4-10.4); MONOCYTES % 12.3 % (0.0-11.0); NEUTROPHIL # 5.8 10^3/ul (1.6-7.5); NEUTROPHILS % 73.7 % (39.0-77.0); PLATELET COUNT 144 10^3/UL (140-415); RED BLOOD COUNT 3.08 10^6/ul (4.20-5.40); RED CELL DISTRIBUTION WIDTH 12.7 % (11.5-14.5); WHITE BLOOD COUNT 7.9 10^3/ul (4.8-10.8)
[2016-11-03] MEDS: LEVOTHYROXINE 137 MCG TAB PO SCH (06:20)
[2016-11-03 06:37] LABS: ALBUMIN 3.7 g/dl (3.3-4.9); ALBUMIN/GLOBULIN RATIO 1.15; BILIRUBIN,INDIRECT 0.9 mg/dl (0-1.1); BILIRUBIN,TOTAL 0.9 mg/dl (0.2-1.3); CALCIUM 8.9 mg/dl (8.4-10.2); CREATININE 1.13 mg/dl (0.44-1.00); POTASSIUM 4.2 mmol/L (3.5-5.1); TOTAL PROTEIN 6.9 g/dl (6.1-8.1)
[2016-11-03] MEDS ORDERED: PENDING SANTYL ORDER FOR WOUND CARE XX PRN (08:00)
[2016-11-03] MEDS ORDERED: LIDOCAINE 1% (MPF) 5 ML VIAL SC ONE (08:00)
--- NOTE | 2016-11-03 08:17 | PN ---
Date/Time of Note Date/Time of Note DATE: 11/03/16 TIME: 08:04 Assessment/Plan VTE Prophylaxis VTE Prophylaxis Intervention: heparin Lines/Catheters IV Catheter Type (from Nrs): Peripheral IV Central line still needed: Yes Urinary Cath still in place: Yes Reason Cath still needed: pres ulcer contaminated by urine Assessment/Plan Chief Complaint/Hosp Course still sever bradycardic plan is still to observe possibility of medicine induced problem still present.agree with sound technician supervisor plan Problems: Assessment/Plan plan 1. insertion of pic line 2 pacer implant today if rate not improved 3 continue rest of rx Subjective 24 Hr Interval Summary Free Text/Dictation patient still confused this am however pleasant but trying to pull iv out. 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 no complaints Constitutional: no complaints Respiratory: no complaints Cardiovascular: no complaints Exam/Review of Systems Vital Signs Vitals Vital Signs Date Time Temp Pulse Resp B/P Pulse Ox O2 Delivery O2 Flow Rate FiO2 11/03/16 06:45 19 157/38 100 Nasal Cannula 4.0 11/03/16 06:30 40 11/03/16 04:00 97.8 Intake and Output 11/02/16 11/02/16 11/03/16 15:00 23:00 07:00 Intake Total 675.875 ml 1113.815 ml 674.75 ml Output Total 605 ml 860 ml 1500 ml Balance 70.875 ml 253.815 ml -825.25 ml Exam pulse 40 bp on dopamine 100/65 respirations 17 afebrile heent unremarkable cor bradycardia rhythm appears regular lungs clear abd.soft mental state confused Skin: No rash or lesions Results Result Diagram: 11/03/16 0503 11/03/16 0503 Results 24 hrs Laboratory Tests Test 11/02/16 09:35 11/03/16 05:03 Thyroid Stimulating Hormone (TSH) 0.989 Digoxin Level < 0.4 L White Blood Count 7.9 # Red Blood Count 3.08 L Hemoglobin 11.2 L Hematocrit 32.5 L Mean Corpuscular Volume 105.5 H Mean Corpuscular Hemoglobin 36.4 H Mean Corpuscular Hemoglobin Concent 34.5 Red Cell Distribution Width 12.7 Platelet Count 144 Mean Platelet Volume 10.5 H Neutrophils % 73.7 Lymphocytes % 12.2 L Monocytes % 12.3 H Eosinophils % 1.0 Basophils % 0.4 Nucleated Red Blood Cells % 0.0 Neutrophils # 5.8 Lymphocytes # 1.0 Monocytes # 1.0 H Eosinophils # 0.1 Basophils # 0.0 Nucleated Red Blood Cells # 0.0 Sodium Level 137 Potassium Level 4.2 Chloride Level 100 Carbon Dioxide Level 24 Anion Gap 17 H Blood Urea Nitrogen 28 #H Creatinine 1.13 H Glucose Level 115 # Calcium Level 8.9 Total Bilirubin 0.9 Direct Bilirubin 0.00 Indirect Bilirubin 0.9 Aspartate Amino Transf (AST/SGOT) 39 Alanine Aminotransferase (ALT/SGPT) 26 Alkaline Phosphatase 51 Total Protein 6.9 Albumin 3.7 Globulin 3.20 Albumin/Globulin Ratio 1.15 Medications Medications Current Medications Dextrose/Sodium Chloride (D5-1/2ns) 1,000 ml @ 100 mls/hr Q10H IV Last administered on 11/03/16 04:52; Admin Dose 100 MLS/HR; Start 11/01/16 at 17:46 Ondansetron HCl (Zofran Inj) 4 mg Q6H PRN IV NAUSEA AND/OR VOMITING; Start 11/01 at 18:00 Acetaminophen (Tylenol Tab) 650 mg Q6H PRN PO PAIN LEVEL 1-3 OR FEVER; Start at 18:00 Lorazepam (Ativan) 1 mg Q2H PRN IV ANXIETY Last administered on 11/02/16 00:46 ; Admin Dose 1 MG; Start 11/01/16 at 18:00 Zolpidem Tartrate (Ambien) 5 mg QHS PRN PO INSOMNIA Last administered on 20:25; Admin Dose 5 MG; Start 11/01/16 at 18:00 Bisacodyl (Dulcolax) 5 mg DAILY PRN PO CONSTIPATION; Start 11/01/16 at 18:00 Famotidine (Pepcid Iv) 20 mg DAILY IV Last administered on 11/02/16 09:50; Admin Dose 20 MG; Start 11/01/16 at 21:00 Diazepam (Valium) 2.5 mg Q6H PRN IV ANXIETY Last administered on 11/03/16 00: 19; Admin Dose 2.5 MG; Start 11/02/16 at 11:00 Quetiapine Fumarate (Seroquel) 25 mg BID PRN PO AGITATION Last administered on 11/02/16 15:51; Admin Dose 25 MG; Start 11/02/16 at 15:30 Haloperidol 0.5 mg 0.5 mg Q6H PRN IV DELIRIUM; Start 11/02/16 at 21:00; Status Future Hold Dopamine HCl/ Dextrose 250 ml @ 5.025 mls/ hr TITRATE IV Last administered on 11/03/16 04:49; Admin Dose 30.15 MLS/HR; Start 11/02/16 at 18:00 Miscellaneous Information ([facility]) This patient ramirez... PRN PRN XX WOUND CARE; Start 11/03/16 at 08:00 Lidocaine (Xylocaine 1% (Mpf)) 5 ml ONCE ONCE SC ; Start 11/03/16 at 08:00; Stop 11/03/16 at 08:01; Status BARBARA EAGLE MD Nov 03, 2016 08:14
--- NOTE | 2016-11-03 08:27 | RADRPT ---
Vent Rate: 31 bpm RR Interval: 0 msec SC Interval: 260 msec QRS Duration: 134 msec QT Interval: 684 msec QTC Interval: 491 msec P-R-T [place]: 69 - 27 - 35 degrees Marked sinus bradycardia with 1st degree AV block Right bundle branch block Abnormal ECG Electronically Signed By: Patrick Dunne [id number]
--- NOTE | 2016-11-03 08:53 | CONS ---
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 no improvement now 48hrs without avn blockers, remains on dopamine gtt with HD stability and good perfusion. recommend permanent pacemaker placement given no clinical improvement and altered mental status. - repeat ekg, - icu monitoring - atropine at bedside, prn - pacer pads - hold metoprolol, amiodarone - keep npo for ppm placement today - L arm IV - Hibiclens prior to laboratory phlebotomist - dopamine gtt can titrate to keep hr > 30, MAP > 60. ok to start isoprel around 2pm and d/c dopamine at that time. PAF- hold meds. including anticoagulants given need for ppm placement HTN- hold any bp meds Problems: Consultation Date/Type/Reason Admit Date/Time Nov 02, 2016 at 08:15 Initial Consult Date 11/01/16 Type of Consultation: Cardiology Referring Provider: BARBARA COATS MD 24 HR Interval Summary Free Text/Dictation pt remains confused today. no cp/sob. denies dizziness, no syncope per nursing. tele/ekg reviewed: last night did have 3rd degree heart block with hrs in 31 with escape rhythm, rbbb. now remains in 2:1 avb with hrs 37. Detailed Summary Respiratory: no complaints Cardiovascular: no complaints Gastrointestinal: no complaints Neurologic: confusion Exam/Review of Systems Vital Signs Vitals Vital Signs Date Time Temp Pulse Resp B/P Pulse Ox O2 Delivery O2 Flow Rate FiO2 11/03/16 06:45 19 157/38 100 Nasal Cannula 4.0 11/03/16 06:30 40 11/03/16 04:00 97.8 Intake and Output 11/02/16 11/02/16 11/03/16 15:00 23:00 07:00 Intake Total 675.875 ml 1113.815 ml 674.75 ml Output Total 605 ml 860 ml 1500 ml Balance 70.875 ml 253.815 ml -825.25 ml Exam Constitutional: confused oriented to person, Psych: nl mood/affect, no complaints Head: atraumatic, normocephalic Eyes: nl conjunctiva ENMT: dried blood in mouth Neck: non-tender, supple, No jvd Respiratory: clear to auscultation, normal air movement Cardiovascular: edema (1+ ble ankles), nl pulses, regular rate and rhythm, systolic murmur Gastrointestinal: non-tender, soft Musculoskeletal: nl extremities to inspection Extremities: normal pulses Neurological: TELEVISION SPECIALIST II-XII intact, nl mental status, nl speech Skin: nl turgor Results Result Diagram: 11/03/16 0503 11/03/16 0503 Results 24 hrs Laboratory Tests Test 11/02/16 09:35 11/03/16 05:03 Thyroid Stimulating Hormone (TSH) 0.989 Digoxin Level < 0.4 L White Blood Count 7.9 # Red Blood Count 3.08 L Hemoglobin 11.2 L Hematocrit 32.5 L Mean Corpuscular Volume 105.5 H Mean Corpuscular Hemoglobin 36.4 H Mean Corpuscular Hemoglobin Concent 34.5 Red Cell Distribution Width 12.7 Platelet Count 144 Mean Platelet Volume 10.5 H Neutrophils % 73.7 Lymphocytes % 12.2 L Monocytes % 12.3 H Eosinophils % 1.0 Basophils % 0.4 Nucleated Red Blood Cells % 0.0 Neutrophils # 5.8 Lymphocytes # 1.0 Monocytes # 1.0 H Eosinophils # 0.1 Basophils # 0.0 Nucleated Red Blood Cells # 0.0 Sodium Level 137 Potassium Level 4.2 Chloride Level 100 Carbon Dioxide Level 24 Anion Gap 17 H Blood Urea Nitrogen 28 #H Creatinine 1.13 H Glucose Level 115 # Calcium Level 8.9 Total Bilirubin 0.9 Direct Bilirubin 0.00 Indirect Bilirubin 0.9 Aspartate Amino Transf (AST/SGOT) 39 Alanine Aminotransferase (ALT/SGPT) 26 Alkaline Phosphatase 51 Total Protein 6.9 Albumin 3.7 Globulin 3.20 Albumin/Globulin Ratio 1.15 Medications Medications Current Medications Dextrose/Sodium Chloride (D5-1/2ns) 1,000 ml @ 100 mls/hr Q10H IV Last administered on 11/03/16t 04:52; Admin Dose 100 MLS/HR; Start 11/01/16 at 17:46 Ondansetron HCl (Zofran Inj) 4 mg Q6H PRN IV NAUSEA AND/OR VOMITING; Start 11/01 at 18:00 Acetaminophen (Tylenol Tab) 650 mg Q6H PRN PO PAIN LEVEL 1-3 OR FEVER; Start at 18:00 Lorazepam (Ativan) 1 mg Q2H PRN IV ANXIETY Last administered on 11/02/16 00:46 ; Admin Dose 1 MG; Start 11/01/16 at 18:00 Zolpidem Tartrate (Ambien) 5 mg QHS PRN PO INSOMNIA Last administered on 20:25; Admin Dose 5 MG; Start 11/01/16 at 18:00 Bisacodyl (Dulcolax) 5 mg DAILY PRN PO CONSTIPATION; Start 11/01/16 at 18:00 Famotidine (Pepcid Iv) 20 mg DAILY IV Last administered on 11/02/16 09:50; Admin Dose 20 MG; Start 11/01/16 at 21:00 Diazepam (Valium) 2.5 mg Q6H PRN IV ANXIETY Last administered on 11/03/16 00: 19; Admin Dose 2.5 MG; Start 11/02/16 at 11:00 Quetiapine Fumarate (Seroquel) 25 mg BID PRN PO AGITATION Last administered on 11/02/16 15:51; Admin Dose 25 MG; Start 11/02/16 at 15:30 Haloperidol 0.5 mg 0.5 mg Q6H PRN IV DELIRIUM; Start 11/02/16 at 21:00; Status Future Hold Dopamine HCl/ Dextrose 250 ml @ 5.025 mls/ hr TITRATE IV Last administered on 11/03/16 04:49; Admin Dose 30.15 MLS/HR; Start 11/02/16 at 18:00 Miscellaneous Information (Pending [facility] Order For Wound Care) This patient ramirez... PRN PRN XX WOUND CARE; Start 11/03/16 at 08:00 CHAO CALHOUN Nov 03, 2016 08:53
[2016-11-03] MEDS: LORAZEPAM 2 MG INJ IV PRN (09:03)
--- NOTE | 2016-11-03 10:11 | RADRPT ---
PROCEDURE: XR Chest. CLINICAL INDICATION: Check PICC line position. TECHNIQUE: Single frontal view. COMPARISON: 11/01/2016. FINDINGS: There is a left arm PICC line with the tip in the Cavoatrial junction region. The lungs are clear. The heart is mildly enlarged. There is calcification in the aorta consistent with atherosclerosis. There is no pleural effusion. There is no pneumothorax. IMPRESSION: 1. Left arm PICC line tip in satisfactory position. 2. Mild cardiomegaly and atherosclerosis. 3. Clear lungs. RPTAT: QQ .Pio Combs MD, MD Date Time Electronically viewed and signed by .Pio Combs MD, on 11/03/2016 10:11 .R/
--- NOTE | 2016-11-03 10:12 | RADRPT ---
PROCEDURE: Ultrasound guidance for placement of needle in left upper extremity vein. CLINICAL INDICATION: Venous access. TECHNIQUE: Limited sonography of the left upper extremity was performed. Ultrasound images were recorded and s tored in the patient's medical record. COMPARISON: None. FINDINGS: The ultrasound images demonstrate a patent left upper extremity vein. The PICC line was inserted by the PICC line nurse. IMPRESSION: 1. Ultrasound guidance for a needle placement in a left upper extremity vein. 2. The left upper extremity vein is patent. RPTAT: QQ .Pio Combs MD, MD Date Time Electronically viewed and signed by .Pio Combs MD, on 11/03/2016 10:12 .R/
[2016-11-03] MEDS: FAMOTIDINE 20 MG INJ IV SCH (10:35)
[2016-11-03] MEDS ORDERED: DEXTROSE 5% IV SCH (14:00)
[2016-11-03] MEDS ORDERED: ISOPROTERENOL IV SCH (14:00)
[2016-11-03 16:05] LABS: INR 1.62; PROTIME 19.4 Sec (12.2-14.2); PT RATIO 1.5
[2016-11-03] MEDS ORDERED: MIDAZOLAM 1 MG/ML 2 ML INJ ONE ×2 (16:17→16:20)
[2016-11-03] MEDS ORDERED: FENTAnyl 50 MCG/ML VIAL ONE ×2 (16:17→16:20)
--- NOTE | 2016-11-03 17:07 | OPR ---
Date/Time of Note Date/Time of Note DATE: 11/03/16 TIME: 17:05 Operative Report Free Text/Dictation no registered sales assistant or cosurgeons Preoperative Diagnosis heart block Postoperative Diagnosis same Operation/Procedure Performed implantation of permanent pacemaker Surgeon: SUSI CLEMONS MD Anesthesia Type: moderate sedation Estimated Blood Loss: minimal Transfusion Required: no Specimen: none Grafts/Implants: none Complications: no SUSI CLEMONS MD Nov 03, 2016 17:07
[2016-11-03] MEDS ORDERED: IODIXANOL LOCM 50 ML BTL ONE (17:22)
[2016-11-03] MEDS ORDERED: SOD CHLORIDE 0.9% 500 ML ONE (17:22)
[2016-11-03] MEDS ORDERED: CEFAZOLIN 2 GM/50 ML (PMX) 50 ML IVPB ONE (17:44)
[2016-11-03] MEDS ORDERED: morphine 2 MG INJ IV PRN (18:30)
--- NOTE | 2016-11-03 20:04 | RADRPT ---
PROCEDURE: Portable chest x-ray. CLINICAL INDICATION: 86-year-old female. Status post pacemaker placement.. TECHNIQUE: Portable AP view of the chest. COMPARISON: October 18, 2012. FINDINGS: Left subclavian pacemaker with a single lead projected over the right ventricle has been placed in t he interval. Pulmonary vessels are prominent and indistinct in keeping with pulmonary venous congestion and inter stitial edema that is new from prior exam. Tortuous aorta. Borderline heart size. Adjusting for differences in technique, the cardiomediastin al contours are stable. Negative for pleural effusion or pneumothorax.. No acute bony abnormality. IMPRESSION: Single lead pacemaker in good position. Negative for evidence of complications. Interstitial pulmonary edema is new from prior exam. RPTAT: HCTS Physician Edgar Date Time Electronically viewed and signed by Physician Edgar on 11/03/2016 20:04 CS/
--- NOTE | 2016-11-03 20:52 | OPR ---
DATE OF OPERATION: 11/03/2016 PREOPERATIVE DIAGNOSIS: Heart block. POSTOPERATIVE DIAGNOSIS: Heart block. OPERATION PERFORMED: Implantation of VVI pacemaker. SURGEON: Dr. Rubin Wilson. OPERATIVE PROCEDURE: Left deltoid pectoralis prepped and draped in sterile fashion. Skin and subcutaneous tissues were infiltrated with lidocaine. Incision made and carried down to pectoral fascia. Pocket made superior and inferior to the incision. The patient was placed in Trendelenburg and a venogram was performed using micro puncture technique. The axillary/subclavian system was entered readily and introducer was placed. RV lead was a Medtronic, model number [id number], passed under fluoroscopic guidance into the RV apex. Excellent parameters were obtained with a threshold of 1 volt, impedence of 1200, R wave of 8, lead was secured with two 2-0 [place] sutures. Lead was attached to a Medtronic Advisa MRI pacemaker, model [id number]. This was inserted into the pocket. The pocket was irrigated with antibiotic solution. The incision was closed with interrupted 2-0 Vicryl, continuous 3-0 Vicryl, and subcuticular 4-0 Vicryl. The patient tolerated the procedure well and left the operating room in good condition. Dictated By: Rubin Wilson MD /patel/john /Document#: [id number]
[2016-11-03] MEDS: CEFAZOLIN 1 GM/50 ML (PMX) 50 ML IVPB SCH (22:11)
[2016-11-03] MEDS: ZOLPIDEM 5 MG TAB PO PRN (22:11)
[2016-11-04] VITALS (16 sets, daily range): BP systolic 107–155; BP diastolic 45–140; PULSE 69–73; RESP 14–31
[2016-11-04] MEDS: DEXTROSE 5%-0.45% NACL 1,000 ML IV SCH (01:54)
[2016-11-04] MEDS: CEFAZOLIN 1 GM/50 ML (PMX) 50 ML IVPB SCH (05:27)
[2016-11-04 06:32] LABS: BASOPHIL # 0.1 10^3/ul (0.0-0.1); BASOPHILS % 0.6 % (0.0-2.0); EOSINOPHILS # 0.2 10^3/ul (0.0-0.5); EOSINOPHILS % 2.1 % (0.0-7.0); HEMATOCRIT 30.8 % (37.0-47.0); HEMOGLOBIN 10.5 g/dl (12.0-16.0); LYMPHOCYTES # 1.1 10^3/ul (0.8-2.9); LYMPHOCYTES % 12.6 % (15.0-51.0); MEAN CORPUSCULAR HEMOGLOBIN 35.5 pg (29.0-33.0); MEAN CORPUSCULAR HGB CONC 34.1 g/dl (32.0-37.0); MEAN CORPUSCULAR VOLUME 104.1 fl (82.0-101.0); MEAN PLATELET VOLUME 10.9 fl (7.4-10.4); MONOCYTE # 1.1 10^3/ul (0.3-0.9); MONOCYTES % 12.4 % (0.0-11.0); NEUTROPHIL # 6.4 10^3/ul (1.6-7.5); NEUTROPHILS % 71.7 % (39.0-77.0); PLATELET COUNT 143 10^3/UL (140-415); RED BLOOD COUNT 2.96 10^6/ul (4.20-5.40); RED CELL DISTRIBUTION WIDTH 12.8 % (11.5-14.5); WHITE BLOOD COUNT 8.9 10^3/ul (4.8-10.8)
[2016-11-04] MEDS: LEVOTHYROXINE 137 MCG TAB PO SCH (06:36)
[2016-11-04 06:57] LABS: ALBUMIN 3.1 g/dl (3.3-4.9); ALBUMIN/GLOBULIN RATIO 1.06; BILIRUBIN,INDIRECT 1.1 mg/dl (0-1.1); BILIRUBIN,TOTAL 1.1 mg/dl (0.2-1.3); CALCIUM 8.4 mg/dl (8.4-10.2); CREATININE 0.79 mg/dl (0.44-1.00); POTASSIUM 3.3 mmol/L (3.5-5.1)
--- NOTE | 2016-11-04 07:58 | PN ---
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 if ok with cardiology Subjective 24 Hr Interval Summary Free Text/Dictation patient sleeping rousable per nursing staff Exam/Review of Systems Vital Signs Vitals Vital Signs Date Time Temp Pulse Resp B/P Pulse Ox O2 Delivery O2 Flow Rate FiO2 11/04/16 07:35 98.2 11/04/16 07:28 Nasal Cannula 2.0 11/04/16 07:00 70 17 145/64 100 Intake and Output 11/03/16 11/03/16 11/04/16 15:00 23:00 07:00 Intake Total 1511.05 ml 700 ml 840 ml Output Total 855 ml 650 ml 680 ml Balance 656.05 ml 50 ml 160 ml Exam vss heent neg lungs clear heart regular paced rhythm Results Result Diagram: 11/04/16 0500 11/04/16 0500 Results 24 hrs Laboratory Tests Test 11/03/16 15:37 11/04/16 05:00 Prothrombin Time 19.4 #H Prothrombin Time Ratio 1.5 INR International Normalized Ratio 1.62 White Blood Count 8.9 Red Blood Count 2.96 L Hemoglobin 10.5 L Hematocrit 30.8 L Mean Corpuscular Volume 104.1 H Mean Corpuscular Hemoglobin 35.5 H Mean Corpuscular Hemoglobin Concent 34.1 Red Cell Distribution Width 12.8 Platelet Count 143 Mean Platelet Volume 10.9 H Neutrophils % 71.7 Lymphocytes % 12.6 L Monocytes % 12.4 H Eosinophils % 2.1 Basophils % 0.6 Nucleated Red Blood Cells % 0.0 Neutrophils # 6.4 Lymphocytes # 1.1 Monocytes # 1.1 H Eosinophils # 0.2 Basophils # 0.1 Nucleated Red Blood Cells # 0.0 Sodium Level 136 Potassium Level 3.3 L Chloride Level 99 Carbon Dioxide Level 26 Anion Gap 14 Blood Urea Nitrogen 15 # Creatinine 0.79 Glucose Level 115 Calcium Level 8.4 Total Bilirubin 1.1 Direct Bilirubin 0.00 Indirect Bilirubin 1.1 Aspartate Amino Transf (AST/SGOT) 32 Alanine Aminotransferase (ALT/SGPT) 32 Alkaline Phosphatase 78 # Total Protein 6.0 L Albumin 3.1 L Globulin 2.90 Albumin/Globulin Ratio 1.06 Medications Medications Current Medications Dextrose/Sodium Chloride (D5-1/2ns) 1,000 ml @ 100 mls/hr Q10H IV Last administered on 11/04/16 01:54; Admin Dose 100 MLS/HR; Start 11/01/16 at 17:46 Ondansetron HCl (Zofran Inj) 4 mg Q6H PRN IV NAUSEA AND/OR VOMITING; Start 11/01 at 18:00 Acetaminophen (Tylenol Tab) 650 mg Q6H PRN PO PAIN LEVEL 1-3 OR FEVER; Start at 18:00 Lorazepam (Ativan) 1 mg Q2H PRN IV ANXIETY Last administered on 11/03/16 09:03 ; Admin Dose 1 MG; Start 11/01/16 at 18:00 Zolpidem Tartrate (Ambien) 5 mg QHS PRN PO INSOMNIA Last administered on 22:11; Admin Dose 5 MG; Start 11/01/16 at 18:00 Bisacodyl (Dulcolax) 5 mg DAILY PRN PO CONSTIPATION; Start 11/01/16 at 18:00 Famotidine (Pepcid Iv) 20 mg DAILY IV Last administered on 11/03/16 10:35; Admin Dose 20 MG; Start 11/01/16 at 21:00 Diazepam (Valium) 2.5 mg Q6H PRN IV ANXIETY Last administered on 11/03/16 00: 19; Admin Dose 2.5 MG; Start 11/02/16 at 11:00 Quetiapine Fumarate (Seroquel) 25 mg BID PRN PO AGITATION Last administered on 11/02/16 15:51; Admin Dose 25 MG; Start 11/02/16 at 15:30 Haloperidol (Haldol) 0.5 mg Q6H PRN IV DELIRIUM; Start 11/02/16 at 21:00; Status Future Hold Miscellaneous Information (Pending Santyl Order For Wound Care) This patient ramirez... PRN PRN XX WOUND CARE; Start 11/03/16 at 08:00 IV Flush (NS 10 ml) 10 ml PRN PRN IV FLUSH LINE; Start 11/03/16 at 10:30 Morphine Sulfate (morphine) 2 mg Q4H PRN IV PAIN Last administered on t 18:42; Admin Dose 2 MG; Start 11/03/16 at 18:30 BARBARA COATS MD Nov 04, 2016 07:58
[2016-11-04] MEDS ORDERED: D5-0.2 NACL + KCL 20 MEQ 1,000 ML IV SCH (08:00)
[2016-11-04] MEDS: FAMOTIDINE 20 MG INJ IV SCH (08:23)
[2016-11-04] MEDS ORDERED: VITAMIN A & D 5 GM OINT PACKET TOP ONE (12:37)
[2016-11-04] MEDS: ACETAMINOPHEN 325 MG TAB PO PRN ×2 (15:39→20:00)
[2016-11-04] MEDS ORDERED: FUROSEMIDE 40 MG INJ ONE (16:30)
[2016-11-04] MEDS ORDERED: FUROSEMIDE 40 MG INJ IV STA (16:32)
--- NOTE | 2016-11-04 16:37 | CONS ---
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 Will give 40 IV lasix stat O2 supplementation as needed NIPPV may end up being needed but not yet Constitutional: no complaints Eyes: no complaints ENT: no complaints Respiratory: no complaints Cardiovascular: no complaints Gastrointestinal: no complaints Genitourinary: no complaints Musculoskeletal: no complaints Skin: no complaints Neurologic: confusion Endocrine: no complaints Psychological: confusion Past Surgical History Past Surgical Hx: other (hysterectomy) Social History Smoking Status: Former smoker Drug Use: none Exam/Review of Systems Vital Signs Vitals Vital Signs Date Time Temp Pulse Resp B/P Pulse Ox O2 Delivery O2 Flow Rate FiO2 11/04/16 16:26 97.5 70 18 142/62 85 11/04/16 09:30 Nasal Cannula 2.0 Intake and Output 11/03/16 11/03/16 11/04/16 15:00 23:00 07:00 Intake Total 1511.05 ml 700 ml 840 ml Output Total 855 ml 650 ml 680 ml Balance 656.05 ml 50 ml 160 ml Results Result Diagram: 11/04/16 0500 11/04/16 0500 Results 24 hrs Laboratory Tests Test 11/04/16 05:00 White Blood Count 8.9 Red Blood Count 2.96 L Hemoglobin 10.5 L Hematocrit 30.8 L Mean Corpuscular Volume 104.1 H Mean Corpuscular Hemoglobin 35.5 H Mean Corpuscular Hemoglobin Concent 34.1 Red Cell Distribution Width 12.8 Platelet Count 143 Mean Platelet Volume 10.9 H Neutrophils % 71.7 Lymphocytes % 12.6 L Monocytes % 12.4 H Eosinophils % 2.1 Basophils % 0.6 Nucleated Red Blood Cells % 0.0 Neutrophils # 6.4 Lymphocytes # 1.1 Monocytes # 1.1 H Eosinophils # 0.2 Basophils # 0.1 Nucleated Red Blood Cells # 0.0 Sodium Level 136 Potassium Level 3.3 L Chloride Level 99 Carbon Dioxide Level 26 Anion Gap 14 Blood Urea Nitrogen 15 # Creatinine 0.79 Glucose Level 115 Calcium Level 8.4 Total Bilirubin 1.1 Direct Bilirubin 0.00 Indirect Bilirubin 1.1 Aspartate Amino Transf (AST/SGOT) 32 Alanine Aminotransferase (ALT/SGPT) 32 Alkaline Phosphatase 78 # Total Protein 6.0 L Albumin 3.1 L Globulin 2.90 Albumin/Globulin Ratio 1.06 Medications Medications Current Medications Ondansetron HCl (Zofran Inj) 4 mg Q6H PRN IV NAUSEA AND/OR VOMITING; Start 11/01 at 18:00 Acetaminophen (Tylenol Tab) 650 mg Q6H PRN PO PAIN LEVEL 1-3 OR FEVER Last administered on 11/04/16 15:39; Admin Dose 650 MG; Start 11/01/16 at 18:00 Lorazepam (Ativan) 1 mg Q2H PRN IV ANXIETY Last administered on 11/03/16 09:03 ; Admin Dose 1 MG; Start 11/01/16 at 18:00 Zolpidem Tartrate (Ambien) 5 mg QHS PRN PO INSOMNIA Last administered on 22:11; Admin Dose 5 MG; Start 11/01/16 at 18:00 Bisacodyl (Dulcolax) 5 mg DAILY PRN PO CONSTIPATION; Start 11/01/16 at 18:00 Diazepam (Valium) 2.5 mg Q6H PRN IV ANXIETY Last administered on 11/03/16 00: 19; Admin Dose 2.5 MG; Start 11/02/16 at 11:00 Quetiapine Fumarate (Seroquel) 25 mg BID PRN PO AGITATION Last administered on 11/02/16 15:51; Admin Dose 25 MG; Start 11/02/16 at 15:30 Haloperidol (Haldol) 0.5 mg Q6H PRN IV DELIRIUM; Start 11/02/16 at 21:00; Status Future Hold Miscellaneous Information (Pending Santyl Order For Wound Care) This patient ramirez... PRN PRN XX WOUND CARE; Start 11/03/16 at 08:00 IV Flush (NS 10 ml) 10 ml PRN PRN IV FLUSH LINE; Start 11/03/16 at 10:30 Morphine Sulfate 2 mg 2 mg Q4H PRN IV PAIN Last administered on 11/03/16 18:42 ; Admin Dose 2 MG; Start 11/03/16 at 18:30 Potassium Chloride/Dextrose/ Sod Cl (D5-1/4ns + KCl 20 Meq) 1,000 ml @ 100 mls/ hr Q10H IV Last administered on 11/04/16 11:00; Admin Dose 100 MLS/HR; Start 11/04/16 at 08:00 Famotidine (Pepcid) 20 mg DAILY PO ; Start 11/05/16 at 09:00 MARTHA PETER MD Nov 04, 2016 16:37
[2016-11-04 16:48] LABS: AADO2 Arterial 277.6 mmHg (7.0-24.0); Allen Test ACCEPTAB; Arterial Base Excess 0.6 mmol/L (-3.0-3); Arterial COHb 0.3 % (0.0-3.0); Arterial HCO3 22.6 mmol/L (22.0-26.0); Arterial MetHb 0.3 % (0.0-1.5); Arterial Total Hemglobin 12.3 g/dl (12.0-18.0); MODE MASK - NRB
--- NOTE | 2016-11-04 18:16 | RADRPT ---
PROCEDURE: XR Chest. CLINICAL INDICATION: Hypoxia. TECHNIQUE: Single frontal chest x-ray. COMPARISON: 10/18/2012 FINDINGS: Left subclavian pacemaker has been placed with a Save single lead wire overlying right ventricle. T he heart is enlarged.. Pulmonary vessels are top normal caliber without definite CHF, unchanged.. M inimal bibasilar atelectasis.. There is no pleural effusion. There is no pneumothorax. The osseou s structures are unremarkable. IMPRESSION: Point vessels top normal caliber. Minimal bibasilar atelectasis. Left subclavian pacemaker present . RPTAT: HMVK .Anup Pierson MD, MD Date Time Electronically viewed and signed by .Anup Pierson MD, on 11/04/2016 18:16 .K/
[2016-11-04] MEDS: QUETIAPINE 25 MG TAB PO PRN (20:07)
--- NOTE | 2016-11-04 22:19 | CONS ---
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 tele reviewed vpaced a 70 bpm. no events Constitutional: disoriented Detailed Summary Respiratory: no complaints Cardiovascular: no complaints Gastrointestinal: no complaints Exam/Review of Systems Vital Signs Vitals Vital Signs Date Time Temp Pulse Resp B/P Pulse Ox O2 Delivery O2 Flow Rate FiO2 11/04/16 20:03 98 2.0 11/04/16 20:00 69 11/04/16 20:00 97.1 15 107/51 11/04/16 19:15 Nasal Cannula Intake and Output 11/03/16 11/03/16 11/04/16 15:00 23:00 07:00 Intake Total 1511.05 ml 700 ml 840 ml Output Total 855 ml 650 ml 680 ml Balance 656.05 ml 50 ml 160 ml Exam Constitutional: confused oriented to person, Psych: nl mood/affect, no complaints Head: atraumatic, normocephalic Eyes: nl conjunctiva ENMT: dried blood in mouth Neck: non-tender, supple, No jvd Respiratory: clear to auscultation, normal air movement Cardiovascular: edema (1+ ble ankles), nl pulses, regular rate and rhythm, systolic murmur L ppm dressing in place, wound under c/d/i no hematoma Gastrointestinal: non-tender, soft Musculoskeletal: nl extremities to inspection Extremities: normal pulses 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, nl mental status, nl speech Skin: nl turgor Results Result Diagram: 11/04/16 0500 11/04/16 0500 Results 24 hrs Laboratory Tests Test 11/04/16 05:00 11/04/16 16:17 White Blood Count 8.9 Red Blood Count 2.96 L Hemoglobin 10.5 L Hematocrit 30.8 L Mean Corpuscular Volume 104.1 H Mean Corpuscular Hemoglobin 35.5 H Mean Corpuscular Hemoglobin Concent 34.1 Red Cell Distribution Width 12.8 Platelet Count 143 Mean Platelet Volume 10.9 H Neutrophils % 71.7 Lymphocytes % 12.6 L Monocytes % 12.4 H Eosinophils % 2.1 Basophils % 0.6 Nucleated Red Blood Cells % 0.0 Neutrophils # 6.4 Lymphocytes # 1.1 Monocytes # 1.1 H Eosinophils # 0.2 Basophils # 0.1 Nucleated Red Blood Cells # 0.0 Sodium Level 136 Potassium Level 3.3 L Chloride Level 99 Carbon Dioxide Level 26 Anion Gap 14 Blood Urea Nitrogen 15 # Creatinine 0.79 Glucose Level 115 Calcium Level 8.4 Total Bilirubin 1.1 Direct Bilirubin 0.00 Indirect Bilirubin 1.1 Aspartate Amino Transf (AST/SGOT) 32 Alanine Aminotransferase (ALT/SGPT) 32 Alkaline Phosphatase 78 # Total Protein 6.0 L Albumin 3.1 L Globulin 2.90 Albumin/Globulin Ratio 1.06 Blood Gas Specimen Source Blood arterial Arterial Blood Date Drawn 11/04/2016 4:39:28 PM Arterial Blood pH (Temp corrected) 7.515 H Arterial Blood pCO2 (Temp correct) 28.6 L Arterial Blood pO2 (Temp corrected) 406.8 H Arterial Blood HCO3 22.6 Arterial Blood Base Excess 0.6 Arterial Blood Oxygen Saturation 99.6 Seb Test ACCEPTAB Arterial Blood Gas Puncture Site Right Radial Arterial Blood Carboxyhemoglobin 0.3 Arterial Blood Methemoglobin 0.3 Blood Gas A-a O2 Differential 277.6 H Oxyhemoglobin Percent 99.0 Total Hemoglobin 12.3 Blood Gas Temperature 37.0 Blood Gas Modality MASK - NRB FiO2 100.0 Blood Gas Notified Whom Zachary Blood Gas Notified Time 11/04/2016 4:48:11 PM Medications Medications Current Medications Ondansetron HCl (Zofran Inj) 4 mg Q6H PRN IV NAUSEA AND/OR VOMITING; Start 11/01 at 18:00 Acetaminophen (Tylenol Tab) 650 mg Q6H PRN PO PAIN LEVEL 1-3 OR FEVER Last administered on 11/04/16 20:00; Admin Dose 650 MG; Start 11/01/16 at 18:00 Lorazepam (Ativan) 1 mg Q2H PRN IV ANXIETY Last administered on 11/03/16 09:03 ; Admin Dose 1 MG; Start 11/01/16 at 18:00 Zolpidem Tartrate (Ambien) 5 mg QHS PRN PO INSOMNIA Last administered on 22:11; Admin Dose 5 MG; Start 11/01/16 at 18:00 Bisacodyl (Dulcolax) 5 mg DAILY PRN PO CONSTIPATION; Start 11/01/16 at 18:00 Diazepam (Valium) 2.5 mg Q6H PRN IV ANXIETY Last administered on 11/03/16 00: 19; Admin Dose 2.5 MG; Start 11/02/16 at 11:00 Quetiapine Fumarate (Seroquel) 25 mg BID PRN PO AGITATION Last administered on 11/04/16 20:07; Admin Dose 25 MG; Start 11/02/16 at 15:30 Haloperidol (Haldol) 0.5 mg Q6H PRN IV DELIRIUM; Start 11/02/16 at 21:00; Status Future Hold Miscellaneous Information (Pending Santyl Order For Wound Care) This patient ramirez... PRN PRN XX WOUND CARE; Start 11/03/16 at 08:00 IV Flush (NS 10 ml) 10 ml PRN PRN IV FLUSH LINE; Start 11/03/16 at 10:30 Morphine Sulfate (morphine) 2 mg Q4H PRN IV PAIN Last administered on 18:42; Admin Dose 2 MG; Start 11/03/16 at 18:30 Famotidine (Pepcid) 20 mg DAILY PO ; Start 11/05/16 at 09:00 Procedures Procedures cxr report reviewed in emr tele reviewed CHAO CALHOUN Nov 04, 2016 22:18
[2016-11-04] MEDS: ZOLPIDEM 5 MG TAB PO PRN (23:58)
[2016-11-05] VITALS (10 sets, daily range): BP systolic 110–138; BP diastolic 52–61; PULSE 69–70; RESP 15–20
[2016-11-05] MEDS: FAMOTIDINE 20 MG TAB PO SCH (10:05)
--- NOTE | 2016-11-05 11:13 | RADRPT ---
Vent Rate: 70 bpm RR Interval: 0 msec KS Interval: 0 msec QRS Duration: 172 msec QT Interval: 594 msec QTC Interval: 641 msec P-R-T Bradford: 0 - -79 - 89 degrees Electronic ventricular pacemaker Electronically Signed By: Lavon Iglesias [id number]
[2016-11-05] MEDS: LEVOTHYROXINE 137 MCG TAB PO SCH (11:20)
[2016-11-05] MEDS ORDERED: POTASSIUM CHLORIDE (SR) 20 MEQ TAB PO STA (13:54)
--- NOTE | 2016-11-05 15:07 | CONS ---
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 s/p single lead ppm pacing at 70bpm vvi - s/p ppm - off dopamine/isoprotenrol - can restart metoprolol for now - will need to pull picc line under fluoro to avoid lead dislodgement given on the same side as new ppm PAF- - restart anticoag HTN- hold any bp meds Delerium- likely partly medication induced with benzos, would avoid sedating medications Hypokalemia -replete Consultation Date/Type/Reason Admit Date/Time Nov 02, 2016 at 08:15 Initial Consult Date 11/01/16 Type of Consultation: Cardiology Referring Provider: BARBARA COATS MD 24 HR Interval Summary Free Text/Dictation Pt is doing much better today. Mentation has improved. NO sig't CP or SOB. Did not sleep well last night. Exam/Review of Systems Vital Signs Vitals Vital Signs Date Time Temp Pulse Resp B/P Pulse Ox O2 Delivery O2 Flow Rate FiO2 11/05/16 13:43 2.0 11/05/16 12:12 69 11/05/16 12:00 97.7 18 125/56 98 11/05/16 08:30 Nasal Cannula Intake and Output 11/04/16 11/04/16 11/05/16 15:00 23:00 07:00 Intake Total 150 ml Output Total 100 ml 1300 ml Balance -100 ml -1150 ml Exam Constitutional: alert, oriented, well developed Psych: nl mood/affect, no complaints Head: normocephalic Eyes: EOMI, nl conjunctiva ENMT: nl external ears & nose, nl nasal mucosa & septum Neck: non-tender, supple, No jvd Respiratory: clear to auscultation Cardiovascular: other (PM site no hematoma), regular rate and rhythm Gastrointestinal: soft Musculoskeletal: nl extremities to inspection Results Result Diagram: 11/04/16 0500 11/04/16 0500 Results 24 hrs Laboratory Tests Test 11/04/16 16:17 Blood Gas Specimen Source Blood arterial Arterial Blood Date Drawn 11/04/2016 4:39:28 PM Arterial Blood pH (Temp corrected) 7.515 H Arterial Blood pCO2 (Temp correct) 28.6 L Arterial Blood pO2 (Temp corrected) 406.8 H Arterial Blood HCO3 22.6 Arterial Blood Base Excess 0.6 Arterial Blood Oxygen Saturation 99.6 Seb Test ACCEPTAB Arterial Blood Gas Puncture Site Right Radial Arterial Blood Carboxyhemoglobin 0.3 Arterial Blood Methemoglobin 0.3 Blood Gas A-a O2 Differential 277.6 H Oxyhemoglobin Percent 99.0 Total Hemoglobin 12.3 Blood Gas Temperature 37.0 Blood Gas Modality MASK - NRB FiO2 100.0 Blood Gas Notified Whom M.D. Blood Gas Notified Time 11/04/2016 4:48:11 PM Medications Medications Current Medications Ondansetron HCl (Zofran Inj) 4 mg Q6H PRN IV NAUSEA AND/OR VOMITING; Start 11/01 at 18:00 Acetaminophen (Tylenol Tab) 650 mg Q6H PRN PO PAIN LEVEL 1-3 OR FEVER Last administered on 11/04/16 20:00; Admin Dose 650 MG; Start 11/01/16 at 18:00 Lorazepam (Ativan) 1 mg Q2H PRN IV ANXIETY Last administered on 11/03/16 09:03 ; Admin Dose 1 MG; Start 11/01/16 at 18:00 Zolpidem Tartrate (Ambien) 5 mg QHS PRN PO INSOMNIA Last administered on 23:58; Admin Dose 5 MG; Start 11/01/16 at 18:00 Bisacodyl (Dulcolax) 5 mg DAILY PRN PO CONSTIPATION; Start 11/01/16 at 18:00 Diazepam (Valium) 2.5 mg Q6H PRN IV ANXIETY Last administered on 11/03/16 00: 19; Admin Dose 2.5 MG; Start 11/02/16 at 11:00 Quetiapine Fumarate (Seroquel) 25 mg BID PRN PO AGITATION Last administered on 11/04/16 20:07; Admin Dose 25 MG; Start 11/02/16 at 15:30 Haloperidol (Haldol) 0.5 mg Q6H PRN IV DELIRIUM; Start 11/02/16 at 21:00; Status Future Hold [facility] This patient ramirez... PRN PRN XX WOUND CARE; Start 11/03/16 at 08:00 IV Flush (NS 10 ml) 10 ml PRN PRN IV FLUSH LINE; Start 11/03/16 at 10:30 Morphine Sulfate (morphine) 2 mg Q4H PRN IV PAIN Last administered on 18:42; Admin Dose 2 MG; Start 11/03/16 at 18:30 Famotidine (Pepcid) 20 mg DAILY PO Last administered on 11/05/16 10:05; Admin Dose 20 MG; Start 11/05/16 at 09:00 Tramadol HCl (Ultram) 50 mg Q6H PRN PO PAIN; Start 11/05/16 at 13:00 DAVE OZUNA MD Nov 05, 2016 15:07
[2016-11-05] MEDS: ZOLPIDEM 5 MG TAB PO PRN (21:04)
[2016-11-05] MEDS: METOPROLOL 25 MG TAB PO SCH (21:05)
[2016-11-05] MEDS: DABIGATRAN 150 MG CAP PO SCH (21:06)
[2016-11-05] MEDS: NACL 0.9% 3 ML SYG IV SCH (21:06)
[2016-11-05] MEDS: traMADol 50 MG TAB PO PRN (21:14)
[2016-11-05] MEDS: LORAZEPAM 2 MG INJ IV PRN (22:34)
[2016-11-06] VITALS (11 sets, daily range): BP systolic 117–137; BP diastolic 52–79; PULSE 69–72; RESP 17–20
[2016-11-06] MEDS: LEVOTHYROXINE 137 MCG TAB PO SCH (06:00)
[2016-11-06] MEDS: DABIGATRAN 150 MG CAP PO SCH ×2 (09:31→20:36)
[2016-11-06] MEDS: METOPROLOL 25 MG TAB PO SCH ×2 (09:32→20:37)
[2016-11-06] MEDS: FAMOTIDINE 20 MG TAB PO SCH (09:32)
[2016-11-06] MEDS: traMADol 50 MG TAB PO PRN ×2 (09:37→17:19)
[2016-11-06] MEDS: ACETAMINOPHEN 325 MG TAB PO PRN (17:18)
[2016-11-06] MEDS: NACL 0.9% 3 ML SYG IV SCH (20:37)
[2016-11-06] MEDS: LORAZEPAM 2 MG INJ IV PRN (20:38)
--- NOTE | 2016-11-06 23:43 | PN ---
Date/Time of Note Date/Time of Note DATE: 11/06/16 TIME: 23:37 LATE ENTRY PATIENT SEEN 11/05/2016 AT 14:00 Assessment/Plan VTE Prophylaxis VTE Prophylaxis Intervention: SCD's Lines/Catheters IV Catheter Type (from Nrsg): PICC Line Central line still needed: No Urinary Cath still in place: No Assessment/Plan Problems: (1) Severe sinus bradycardia Status: Acute Comment: S/P PACEMAKER PLACEMENT (2) Heart block Status: Acute Comment: SECOND DEGREE BLOCK (3) Renal insufficiency Onset Date: ~ 11/05/2016 Status: Resolved Assessment/Plan CLINICALLY STABLE. WILL OBTAIN PT AND OT CONSULTATIONS IN PREPARATION TO SEND PATIENT HOME Subjective 24 Hr Interval Summary Free Text/Dictation PATIENT HAS BEEN SLEEPING FOR MOST OF THE MORNING AND EARLY AFTERNOON PER SONS. Constitutional: improved Exam/Review of Systems Vital Signs Vitals Vital Signs Date Time Temp Pulse Resp B/P Pulse Ox O2 Delivery O2 Flow Rate FiO2 11/06/16 21:06 3.0 11/06/16 21:00 Nasal Cannula 11/06/16 20:02 69 11/06/16 19:55 98.4 18 126/59 93 Intake and Output 11/05/16 11/05/16 11/06/16 15:00 23:00 07:00 Intake Total 480 ml 700 ml Output Total 700 ml 600 ml Balance -220 ml 100 ml Exam ASLEEP FOR ROUSABLE Constitutional: oriented Eyes: EOMI, PERRL Neck: supple Respiratory: clear to auscultation Cardiovascular: regular rate and rhythm Gastrointestinal: soft Musculoskeletal: nl extremities to inspection Results LABS REVIEWED Result Diagram: 11/04/16 0500 11/04/16 0500 Medications Medications Current Medications Ondansetron HCl (Zofran Inj) 4 mg Q6H PRN IV NAUSEA AND/OR VOMITING; Start 11/01 at 18:00 Acetaminophen (Tylenol Tab) 650 mg Q6H PRN PO PAIN LEVEL 1-3 OR FEVER Last administered on 11/06/16 17:18; Admin Dose 650 MG; Start 11/01/16 at 18:00 Lorazepam (Ativan) 1 mg Q2H PRN IV ANXIETY Last administered on 11/06/16 20:38 ; Admin Dose 1 MG; Start 11/01/16 at 18:00 Zolpidem Tartrate (Ambien) 5 mg QHS PRN PO INSOMNIA Last administered on 21:04; Admin Dose 5 MG; Start 11/01/16 at 18:00 Bisacodyl (Dulcolax) 5 mg DAILY PRN PO CONSTIPATION; Start 11/01/16 at 18:00 Diazepam (Valium) 2.5 mg Q6H PRN IV ANXIETY Last administered on 11/03/16 00: 19; Admin Dose 2.5 MG; Start 11/02/16 at 11:00 Quetiapine Fumarate (Seroquel) 25 mg BID PRN PO AGITATION Last administered on 11/04/16 20:07; Admin Dose 25 MG; Start 11/02/16 at 15:30 Haloperidol (Haldol) 0.5 mg Q6H PRN IV DELIRIUM; Start 11/02/16 at 21:00; Status Future Hold Miscellaneous Information (Pending Santyl Order For Wound Care) This patient ramirez... PRN PRN XX WOUND CARE; Start 11/03/16 at 08:00 IV Flush (NS 10 ml) 10 ml PRN PRN IV FLUSH LINE; Start 11/03/16 at 10:30 Morphine Sulfate (morphine) 2 mg Q4H PRN IV PAIN Last administered on 18:42; Admin Dose 2 MG; Start 11/03/16 at 18:30 Famotidine (Pepcid) 20 mg DAILY PO Last administered on 11/06/16 09:32; Admin Dose 20 MG; Start 11/05/16 at 09:00 Tramadol HCl (Ultram) 50 mg Q6H PRN PO PAIN Last administered on 11/06/16 17: 19; Admin Dose 50 MG; Start 11/05/16 at 13:00 Metoprolol Tartrate (Lopressor) 25 mg BID PO Last administered on 11/06/16 20: 37; Admin Dose 25 MG; Start 11/05/16 at 21:00 Dabigatran (PRADaxa) 150 mg BID PO Last administered on 11/06/16 20:36; Admin Dose 150 MG; Start 11/05/16 at 21:00 JOSE CRUZ CAMACHO MD Nov 06, 2016 23:43
--- NOTE | 2016-11-06 23:47 | PN ---
Date/Time of Note Date/Time of Note LATE ENTRY SEEN TODAY AT 12:30 DATE: 11/06/16 TIME: 23:43 Assessment/Plan VTE Prophylaxis VTE Prophylaxis Intervention: SCD's Lines/Catheters IV Catheter Type (from Nrsg): PICC Line Central line still needed: No Urinary Cath still in place: No Assessment/Plan Problems: (1) Severe sinus bradycardia Status: Acute Comment: S/P PACEMAKER PLACEMENT CLINICALLY DOING WELL (2) Hypokalemia Status: Acute Comment: REPLACE Assessment/Plan REMOVE BURGESS CATHETER ADVANCE DIET PT/OT STILL PENDING Subjective 24 Hr Interval Summary Free Text/Dictation DAUGHTER AT BEDSIDE. Exam/Review of Systems Vital Signs Vitals Vital Signs Date Time Temp Pulse Resp B/P Pulse Ox O2 Delivery O2 Flow Rate FiO2 11/06/16 21:06 3.0 11/06/16 21:00 Nasal Cannula 11/06/16 20:02 69 11/06/16 19:55 98.4 18 126/59 93 Intake and Output 11/05/16 11/05/16 11/06/16 15:00 23:00 07:00 Intake Total 480 ml 700 ml Output Total 700 ml 600 ml Balance -220 ml 100 ml Exam Constitutional: alert Neck: supple Respiratory: clear to auscultation Cardiovascular: regular rate and rhythm Gastrointestinal: soft Extremities: normal pulses Results Result Diagram: 11/04/16 0500 11/04/16 0500 Medications Medications Current Medications Ondansetron HCl (Zofran Inj) 4 mg Q6H PRN IV NAUSEA AND/OR VOMITING; Start 11/01 at 18:00 Acetaminophen (Tylenol Tab) 650 mg Q6H PRN PO PAIN LEVEL 1-3 OR FEVER Last administered on 11/06/16 17:18; Admin Dose 650 MG; Start 11/01/16 at 18:00 Lorazepam (Ativan) 1 mg Q2H PRN IV ANXIETY Last administered on 11/06/16 20:38 ; Admin Dose 1 MG; Start 11/01/16 at 18:00 Zolpidem Tartrate (Ambien) 5 mg QHS PRN PO INSOMNIA Last administered on 21:04; Admin Dose 5 MG; Start 11/01/16 at 18:00 Bisacodyl (Dulcolax) 5 mg DAILY PRN PO CONSTIPATION; Start 11/01/16 at 18:00 Diazepam (Valium) 2.5 mg Q6H PRN IV ANXIETY Last administered on 11/03/16 00: 19; Admin Dose 2.5 MG; Start 11/02/16 at 11:00 Quetiapine Fumarate (Seroquel) 25 mg BID PRN PO AGITATION Last administered on 11/04/16 20:07; Admin Dose 25 MG; Start 11/02/16 at 15:30 Haloperidol (Haldol) 0.5 mg Q6H PRN IV DELIRIUM; Start 11/02/16 at 21:00; Status Future Hold Miscellaneous Information (Pending Santyl Order For Wound Care) This patient ramirez... PRN PRN XX WOUND CARE; Start 11/03/16 at 08:00 IV Flush (NS 10 ml) 10 ml PRN PRN IV FLUSH LINE; Start 11/03/16 at 10:30 Morphine Sulfate (morphine) 2 mg Q4H PRN IV PAIN Last administered on 18:42; Admin Dose 2 MG; Start 11/03/16 at 18:30 Famotidine (Pepcid) 20 mg DAILY PO Last administered on 11/06/16 09:32; Admin Dose 20 MG; Start 11/05/16 at 09:00 Tramadol HCl (Ultram) 50 mg Q6H PRN PO PAIN Last administered on 11/06/16 17: 19; Admin Dose 50 MG; Start 11/05/16 at 13:00 Metoprolol Tartrate (Lopressor) 25 mg BID PO Last administered on 11/06/16 20: 37; Admin Dose 25 MG; Start 11/05/16 at 21:00 Dabigatran (PRADaxa) 150 mg BID PO Last administered on 11/06/16 20:36; Admin Dose 150 MG; Start 11/05/16 at 21:00 JOSE CRUZ CAMACHO MD Nov 06, 2016 23:47
[2016-11-07] VITALS (13 sets, daily range): BP systolic 115–133; BP diastolic 58–74; PULSE 69–72; RESP 17–19
[2016-11-07] MEDS: LEVOTHYROXINE 137 MCG TAB PO SCH (05:44)
[2016-11-07 07:11] LABS: BASOPHIL # 0.1 10^3/ul (0.0-0.1); EOSINOPHILS # 0.3 10^3/ul (0.0-0.5); EOSINOPHILS % 6.3 % (0.0-7.0); HEMOGLOBIN 10.3 g/dl (12.0-16.0); LYMPHOCYTES # 1.5 10^3/ul (0.8-2.9); LYMPHOCYTES % 29.5 % (15.0-51.0); MEAN CORPUSCULAR HEMOGLOBIN 34.3 pg (29.0-33.0); MEAN CORPUSCULAR HGB CONC 32.2 g/dl (32.0-37.0); MEAN CORPUSCULAR VOLUME 106.7 fl (82.0-101.0); MEAN PLATELET VOLUME 10.1 fl (7.4-10.4); MONOCYTE # 0.7 10^3/ul (0.3-0.9); MONOCYTES % 13.8 % (0.0-11.0); NEUTROPHIL # 2.5 10^3/ul (1.6-7.5); NEUTROPHILS % 49.2 % (39.0-77.0); PLATELET COUNT 154 10^3/UL (140-415); RED CELL DISTRIBUTION WIDTH 12.8 % (11.5-14.5); WHITE BLOOD COUNT 5.1 10^3/ul (4.8-10.8)
[2016-11-07 07:54] LABS: ALBUMIN 2.9 g/dl (3.3-4.9); ALBUMIN/GLOBULIN RATIO 1.07; BILIRUBIN,INDIRECT 0.3 mg/dl (0-1.1); BILIRUBIN,TOTAL 0.3 mg/dl (0.2-1.3); CALCIUM 8.8 mg/dl (8.4-10.2); POTASSIUM 4.1 mmol/L (3.5-5.1); TOTAL PROTEIN 5.6 g/dl (6.1-8.1)
[2016-11-07] MEDS: FAMOTIDINE 20 MG TAB PO SCH (08:37)
[2016-11-07] MEDS: DABIGATRAN 150 MG CAP PO SCH ×2 (08:37→22:07)
[2016-11-07] MEDS: METOPROLOL 25 MG TAB PO SCH ×2 (08:37→22:09)
[2016-11-07] MEDS: traMADol 50 MG TAB PO PRN (14:09)
--- NOTE | 2016-11-07 14:49 | CONS ---
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 s/p single lead ppm pacing at 70bpm vvi - s/p L side single lead PPM - cont metoprolol given h/o PAF - will need to pull picc line under fluoro to avoid lead dislodgement given on the same side as new ppm PAF- - cont anticoag - cont metoprolol HTN- - home meds restarted Delerium- improved. likely partly medication induced with benzos, would avoid sedating medications LIZY- cr improved Problems: Consultation Date/Type/Reason Admit Date/Time Nov 02, 2016 at 08:15 Initial Consult Date 11/01/16 Type of Consultation: Cardiology Referring Provider: BARBARA COATS MD 24 HR Interval Summary Free Text/Dictation no acute events. pt doing well, more alert, answering questions. denies cp/sob. no bleeding. tele reviewed: vpaced, no events Detailed Summary ENT: no complaints Respiratory: no complaints Cardiovascular: no complaints Exam/Review of Systems Vital Signs Vitals Vital Signs Date Time Temp Pulse Resp B/P Pulse Ox O2 Delivery O2 Flow Rate FiO2 11/07/16 12:01 70 11/07/16 11:33 97.5 19 115/61 96 11/07/16 08:30 Nasal Cannula 3.0 Intake and Output 11/06/16 11/06/16 11/07/16 15:00 23:00 07:00 Intake Total 640 ml 600 ml Output Total 375 ml Balance 265 ml 600 ml Exam Constitutional: alert, oriented, well developed Psych: nl mood/affect, no complaints Head: normocephalic Eyes: EOMI, nl conjunctiva ENMT: nl external ears & nose, nl nasal mucosa & septum Neck: non-tender, supple, No jvd Respiratory: clear to auscultation Cardiovascular: other (PM site no hematoma), regular rate and rhythm Gastrointestinal: soft Musculoskeletal: nl extremities to inspection Results Result Diagram: 11/07/16 0632 11/07/16 0632 Results 24 hrs Laboratory Tests Test 11/07/16 06:32 White Blood Count 5.1 # Red Blood Count 3.00 L Hemoglobin 10.3 L Hematocrit 32.0 L Mean Corpuscular Volume 106.7 H Mean Corpuscular Hemoglobin 34.3 H Mean Corpuscular Hemoglobin Concent 32.2 Red Cell Distribution Width 12.8 Platelet Count 154 Mean Platelet Volume 10.1 Neutrophils % 49.2 Lymphocytes % 29.5 Monocytes % 13.8 H Eosinophils % 6.3 Basophils % 1.0 Nucleated Red Blood Cells % 0.0 Neutrophils # 2.5 Lymphocytes # 1.5 Monocytes # 0.7 Eosinophils # 0.3 Basophils # 0.1 Nucleated Red Blood Cells # 0.0 Sodium Level 136 Potassium Level 4.1 Chloride Level 104 Carbon Dioxide Level 27 Anion Gap 9 Blood Urea Nitrogen 18 Creatinine 1.00 Glucose Level 98 Calcium Level 8.8 Magnesium Level 1.8 Total Bilirubin 0.3 Direct Bilirubin 0.00 Indirect Bilirubin 0.3 Aspartate Amino Transf (AST/SGOT) 32 Alanine Aminotransferase (ALT/SGPT) 34 Alkaline Phosphatase 68 B-Type Natriuretic Peptide 6390 H Total Protein 5.6 L Albumin 2.9 L Globulin 2.70 Albumin/Globulin Ratio 1.07 Medications Medications Current Medications Ondansetron HCl (Zofran Inj) 4 mg Q6H PRN IV NAUSEA AND/OR VOMITING; Start 11/01 at 18:00 Acetaminophen (Tylenol Tab) 650 mg Q6H PRN PO PAIN LEVEL 1-3 OR FEVER Last administered on 11/06/16 17:18; Admin Dose 650 MG; Start 11/01/16 at 18:00 Lorazepam (Ativan) 1 mg Q2H PRN IV ANXIETY Last administered on 11/06/16 20:38 ; Admin Dose 1 MG; Start 11/01/16 at 18:00 Zolpidem Tartrate (Ambien) 5 mg QHS PRN PO INSOMNIA Last administered on 21:04; Admin Dose 5 MG; Start 11/01/16 at 18:00 Bisacodyl (Dulcolax) 5 mg DAILY PRN PO CONSTIPATION; Start 11/01/16 at 18:00 Diazepam (Valium) 2.5 mg Q6H PRN IV ANXIETY Last administered on 11/03/16 00: 19; Admin Dose 2.5 MG; Start 11/02/16 at 11:00 Quetiapine Fumarate (Seroquel) 25 mg BID PRN PO AGITATION Last administered on 11/04/16 20:07; Admin Dose 25 MG; Start 11/02/16 at 15:30 Haloperidol (Haldol) 0.5 mg Q6H PRN IV DELIRIUM; Start 11/02/16 at 21:00; Status Future Hold Miscellaneous Information (Pending Santyl Order For Wound Care) This patient ramirez... PRN PRN XX WOUND CARE; Start 11/03/16 at 08:00 IV Flush (NS 10 ml) 10 ml PRN PRN IV FLUSH LINE Last administered on 11/07/16 05:44; Admin Dose 10 ML; Start 11/03/16 at 10:30 Morphine Sulfate (morphine) 2 mg Q4H PRN IV PAIN Last administered on 18:42; Admin Dose 2 MG; Start 11/03/16 at 18:30 Famotidine (Pepcid) 20 mg DAILY PO Last administered on 11/07/16 08:37; Admin Dose 20 MG; Start 11/05/16 at 09:00 Tramadol HCl (Ultram) 50 mg Q6H PRN PO PAIN Last administered on 11/07/16 14: 09; Admin Dose 50 MG; Start 11/05/16 at 13:00 Metoprolol Tartrate (Lopressor) 25 mg BID PO Last administered on 11/07/16 08: 37; Admin Dose 25 MG; Start 11/05/16 at 21:00 Dabigatran (PRADaxa) 150 mg BID PO Last administered on 11/07/16 08:37; Admin Dose 150 MG; Start 11/05/16 at 21:00 Procedures Procedures imaging report reviewed CHAO CALHOUN Nov 07, 2016 14:49
--- NOTE | 2016-11-07 17:56 | PN ---
Date/Time of Note Date/Time of Note DATE: 11/07/16 TIME: 17:53 Assessment/Plan VTE Prophylaxis VTE Prophylaxis Intervention: other (Pradaxa) Lines/Catheters IV Catheter Type (from [facility]): PICC Line Central line still needed: No (Ordered to discontinue is now in the chart; please see cardiology comments;Chief Complaint/Hosp Course) Urinary Cath still in place: No Assessment/Plan Problems: (1) Severe sinus bradycardia Status: Acute Comment: She now has a pacemaker in place. I will go ahead and try and follow the laborer plumbing's "recommendations" removing the PICC line. Also to deal with her heart failure. Overall she is going need some type of placement temporarily to get her more physically competent for taking care of herself (2) Heart block Status: Acute Comment: Corrected with pacemaker Subjective 24 Hr Interval Summary Free Text/Dictation Patient sitting up in chair and talkative. No offered complaints. Constitutional: no complaints Respiratory: no complaints (Denies shortness of breath cough) Cardiovascular: no complaints (Denies palpitations or chest pain) Genitourinary: no complaints Exam/Review of Systems Vital Signs Vitals Vital Signs Date Time Temp Pulse Resp B/P Pulse Ox O2 Delivery O2 Flow Rate FiO2 11/07/16 16:23 69 11/07/16 15:27 98.1 19 123/58 100 11/07/16 08:30 Nasal Cannula 3.0 Intake and Output 11/06/16 11/06/16 11/07/16 15:00 23:00 07:00 Intake Total 640 ml 600 ml Output Total 375 ml Balance 265 ml 600 ml Exam Constitutional: alert, oriented Neck: non-tender, supple Respiratory: crackles/rales (Crackles greater on the right than on the left), normal air movement Cardiovascular: nl pulses, regular rate and rhythm Results Result Diagram: 11/07/16 0632 11/07/16 0632 Results 24 hrs Laboratory Tests Test 11/07/16 06:32 White Blood Count 5.1 # Red Blood Count 3.00 L Hemoglobin 10.3 L Hematocrit 32.0 L Mean Corpuscular Volume 106.7 H Mean Corpuscular Hemoglobin 34.3 H Mean Corpuscular Hemoglobin Concent 32.2 Red Cell Distribution Width 12.8 Platelet Count 154 Mean Platelet Volume 10.1 Neutrophils % 49.2 Lymphocytes % 29.5 Monocytes % 13.8 H Eosinophils % 6.3 Basophils % 1.0 Nucleated Red Blood Cells % 0.0 Neutrophils # 2.5 Lymphocytes # 1.5 Monocytes # 0.7 Eosinophils # 0.3 Basophils # 0.1 Nucleated Red Blood Cells # 0.0 Sodium Level 136 Potassium Level 4.1 Chloride Level 104 Carbon Dioxide Level 27 Anion Gap 9 Blood Urea Nitrogen 18 Creatinine 1.00 Glucose Level 98 Calcium Level 8.8 Magnesium Level 1.8 Total Bilirubin 0.3 Direct Bilirubin 0.00 Indirect Bilirubin 0.3 Aspartate Amino Transf (AST/SGOT) 32 Alanine Aminotransferase (ALT/SGPT) 34 Alkaline Phosphatase 68 B-Type Natriuretic Peptide 6390 H Total Protein 5.6 L Albumin 2.9 L Globulin 2.70 Albumin/Globulin Ratio 1.07 Medications Medications Current Medications Ondansetron HCl (Zofran Inj) 4 mg Q6H PRN IV NAUSEA AND/OR VOMITING; Start 11/01 at 18:00 Acetaminophen (Tylenol Tab) 650 mg Q6H PRN PO PAIN LEVEL 1-3 OR FEVER Last administered on 11/06/16 17:18; Admin Dose 650 MG; Start 11/01/16 at 18:00 Lorazepam (Ativan) 1 mg Q2H PRN IV ANXIETY Last administered on 11/06/16 20:38 ; Admin Dose 1 MG; Start 11/01/16 at 18:00 Zolpidem Tartrate (Ambien) 5 mg QHS PRN PO INSOMNIA Last administered on 21:04; Admin Dose 5 MG; Start 11/01/16 at 18:00 Bisacodyl (Dulcolax) 5 mg DAILY PRN PO CONSTIPATION; Start 11/01/16 at 18:00 Diazepam (Valium) 2.5 mg Q6H PRN IV ANXIETY Last administered on 11/03/16 00: 19; Admin Dose 2.5 MG; Start 11/02/16 at 11:00 Quetiapine Fumarate (Seroquel) 25 mg BID PRN PO AGITATION Last administered on 11/04/16 20:07; Admin Dose 25 MG; Start 11/02/16 at 15:30 Haloperidol (Haldol) 0.5 mg Q6H PRN IV DELIRIUM; Start 11/02/16 at 21:00; Status Future Hold Miscellaneous Information (Pending Santyl Order For Wound Care) This patient ramirez... PRN PRN XX WOUND CARE; Start 11/03/16 at 08:00 IV Flush (NS 10 ml) 10 ml PRN PRN IV FLUSH LINE Last administered on 11/07/16 05:44; Admin Dose 10 ML; Start 11/03/16 at 10:30 Morphine Sulfate (morphine) 2 mg Q4H PRN IV PAIN Last administered on 18:42; Admin Dose 2 MG; Start 11/03/16 at 18:30 Famotidine (Pepcid) 20 mg DAILY PO Last administered on 11/07/16 08:37; Admin Dose 20 MG; Start 11/05/16 at 09:00 Tramadol HCl (Ultram) 50 mg Q6H PRN PO PAIN Last administered on 11/07/16 14: 09; Admin Dose 50 MG; Start 11/05/16 at 13:00 Metoprolol Tartrate (Lopressor) 25 mg BID PO Last administered on 11/07/16 08: 37; Admin Dose 25 MG; Start 11/05/16 at 21:00 Dabigatran (PRADaxa) 150 mg BID PO Last administered on 11/07/16 08:37; Admin Dose 150 MG; Start 11/05/16 at 21:00 SONIA ROSAS MD Nov 07, 2016 17:56
[2016-11-07] MEDS ORDERED: FUROSEMIDE 20 MG TAB PO ONE (18:00)
[2016-11-07] MEDS: FOLIC ACID 1 MG TAB PO SCH (18:29)
[2016-11-07] MEDS ORDERED: CYANOCOBALAMIN 1000 MCG INJ IM ONE (18:30)
[2016-11-08] VITALS (10 sets, daily range): BP systolic 99–142; BP diastolic 55–74; PULSE 61–71; RESP 17–19
[2016-11-08] MEDS: LEVOTHYROXINE 137 MCG TAB PO SCH (06:19)
[2016-11-08 08:05] LABS: BASOPHIL # 0.1 10^3/ul (0.0-0.1); EOSINOPHILS # 0.3 10^3/ul (0.0-0.5); EOSINOPHILS % 4.1 % (0.0-7.0); HEMATOCRIT 36.7 % (37.0-47.0); HEMOGLOBIN 12.1 g/dl (12.0-16.0); LYMPHOCYTES % 28.8 % (15.0-51.0); MEAN CORPUSCULAR HEMOGLOBIN 35.4 pg (29.0-33.0); MEAN CORPUSCULAR VOLUME 107.3 fl (82.0-101.0); MEAN PLATELET VOLUME 9.8 fl (7.4-10.4); MONOCYTE # 0.9 10^3/ul (0.3-0.9); MONOCYTES % 12.3 % (0.0-11.0); NEUTROPHILS % 53.4 % (39.0-77.0); PLATELET COUNT 211 10^3/UL (140-415); RED BLOOD COUNT 3.42 10^6/ul (4.20-5.40); RED CELL DISTRIBUTION WIDTH 12.7 % (11.5-14.5); WHITE BLOOD COUNT 7.1 10^3/ul (4.8-10.8)
[2016-11-08 08:21] LABS: POTASSIUM 4.2 mmol/L (3.5-5.1)
[2016-11-08] MEDS: METOPROLOL 25 MG TAB PO SCH ×2 (09:00→21:58)
[2016-11-08 09:06] LABS: CALCIUM 9.3 mg/dl (8.4-10.2); CREATININE 1.11 mg/dl (0.44-1.00)
[2016-11-08] MEDS: FOLIC ACID 1 MG TAB PO SCH (09:12)
[2016-11-08] MEDS: FAMOTIDINE 20 MG TAB PO SCH (09:12)
[2016-11-08] MEDS: DABIGATRAN 150 MG CAP PO SCH ×2 (09:12→21:57)
--- NOTE | 2016-11-08 12:04 | PQ ---
Date/Time of Note Date/Time of Note DATE: 11/08/16 TIME: 11:[address] Jackson, A review of the medical record found a need for documentation clarification. 11/04 progress note Called for hypoxia Patient recently received PPM, transferred from ICU When seen by me at [facility] is a bit tachypniec but comfortable and nonlabored Requring O2 by facemask, saturating 88-90 Markedly overloaded centrally with very prominent JVD and bibasilar crackles XR yesterday notable for edema, has been on standing fluids Requires diuresis urgently. Will give 40 IV lasix stat O2 supplementation as needed NIPPV may end up being needed but not yet Please clarify a diagnosis being treated. To facilitate accurate and complete coding, please katt ( x ) the suspected diagnosis that apply: ( ) Acute Respiratory failure ( ) Acute Respiratory distress without failure ( ) Others ( ) Clinically undetermined Please provide your response by clicking edit document, making your choice ( x ), click ok/save and finally click sign. You may also document your response on your progress notes. Thank you for your time. With appreciation, Oswaldo Townsend RN, BSN, CCS, CCDS Clinical [employer] Management, CDI and Coding Services [phone] Room # [facility] [address]~ [address] OSWALDO TOWNSEND Nov 08, 2016 12:04
--- NOTE | 2016-11-08 17:46 | CONS ---
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 s/p single lead ppm pacing at 70bpm vvi - s/p L side single lead PPM - cont metoprolol given h/o PAF - will need to pull picc line under fluoro to avoid lead dislodgement given on the same side as new ppm PAF- - cont anticoag - cont metoprolol HTN- - home meds restarted Delerium- resolved . likely partly medication induced with benzos + poor perfusion from bradycardia/heart block LIZY- cr improved Problems: Consultation Date/Type/Reason Admit Date/Time Nov 02, 2016 at 08:15 Initial Consult Date 11/01/16 Type of Consultation: Cardiology Referring Provider: BARBARA COATS MD 24 HR Interval Summary Free Text/Dictation no acute events. tele reviewed, paced at 70bpm. no cp/sob, dizziness. no confusion. Detailed Summary ENT: no complaints Respiratory: no complaints Cardiovascular: no complaints Gastrointestinal: no complaints Exam/Review of Systems Vital Signs Vitals Vital Signs Date Time Temp Pulse Resp B/P Pulse Ox O2 Delivery O2 Flow Rate FiO2 11/08/16 16:23 97.5 72 18 142/63 98 11/08/16 08:00 Nasal Cannula 3.0 Intake and Output 11/07/16 11/07/16 11/08/16 15:00 23:00 07:00 Intake Total 850 ml 240 ml Balance 850 ml 240 ml Exam Constitutional: alert, oriented, well developed Psych: nl mood/affect, no complaints Head: normocephalic Eyes: EOMI, nl conjunctiva ENMT: nl external ears & nose, nl nasal mucosa & septum Neck: non-tender, supple, No jvd Respiratory: clear to auscultation Cardiovascular: other (PM site no hematoma), regular rate and rhythm, L PICC still in place Gastrointestinal: soft Musculoskeletal: nl extremities to inspection Results Result Diagram: 11/08/16 0733 11/08/16 0733 Results 24 hrs Laboratory Tests Test 11/08/16 07:33 White Blood Count 7.1 # Red Blood Count 3.42 L Hemoglobin 12.1 Hematocrit 36.7 L Mean Corpuscular Volume 107.3 H Mean Corpuscular Hemoglobin 35.4 H Mean Corpuscular Hemoglobin Concent 33.0 Red Cell Distribution Width 12.7 Platelet Count 211 # Mean Platelet Volume 9.8 Neutrophils % 53.4 Lymphocytes % 28.8 Monocytes % 12.3 H Eosinophils % 4.1 Basophils % 1.0 Nucleated Red Blood Cells % 0.0 Neutrophils # (Manual) 3.8 Lymphocytes # 2.0 Monocytes # 0.9 Eosinophils # 0.3 Basophils # 0.1 Nucleated Red Blood Cells # 0.0 Sodium Level 139 Potassium Level 4.2 Chloride Level 101 Carbon Dioxide Level 24 Anion Gap 18 #H Blood Urea Nitrogen 23 H Creatinine 1.11 H Glucose Level 113 Calcium Level 9.3 Medications Medications Current Medications Ondansetron HCl (Zofran Inj) 4 mg Q6H PRN IV NAUSEA AND/OR VOMITING; Start 11/01 at 18:00 Acetaminophen (Tylenol Tab) 650 mg Q6H PRN PO PAIN LEVEL 1-3 OR FEVER Last administered on 11/06/16 17:18; Admin Dose 650 MG; Start 11/01/16 at 18:00 Lorazepam (Ativan) 1 mg Q2H PRN IV ANXIETY Last administered on 11/06/16 20:38 ; Admin Dose 1 MG; Start 11/01/16 at 18:00 Zolpidem Tartrate (Ambien) 5 mg QHS PRN PO INSOMNIA Last administered on 21:04; Admin Dose 5 MG; Start 11/01/16 at 18:00 Bisacodyl (Dulcolax) 5 mg DAILY PRN PO CONSTIPATION; Start 11/01/16 at 18:00 Diazepam (Valium) 2.5 mg Q6H PRN IV ANXIETY Last administered on 11/03/16 00: 19; Admin Dose 2.5 MG; Start 11/02/16 at 11:00 Quetiapine Fumarate (Seroquel) 25 mg BID PRN PO AGITATION Last administered on 11/04/16 20:07; Admin Dose 25 MG; Start 11/02/16 at 15:30 Haloperidol (Haldol) 0.5 mg Q6H PRN IV DELIRIUM; Start 11/02/16 at 21:00; Status Future Hold Miscellaneous Information (Pending Santyl Order For Wound Care) This patient ramirez... PRN PRN XX WOUND CARE; Start 11/03/16 at 08:00 IV Flush (NS 10 ml) 10 ml PRN PRN IV FLUSH LINE Last administered on 11/07/16 05:44; Admin Dose 10 ML; Start 11/03/16 at 10:30 Morphine Sulfate (morphine) 2 mg Q4H PRN IV PAIN Last administered on 18:42; Admin Dose 2 MG; Start 11/03/16 at 18:30 Famotidine (Pepcid) 20 mg DAILY PO Last administered on 11/08/16 09:12; Admin Dose 20 MG; Start 11/05/16 at 09:00 Tramadol HCl (Ultram) 50 mg Q6H PRN PO PAIN Last administered on 11/07/16 14: 09; Admin Dose 50 MG; Start 11/05/16 at 13:00 Metoprolol Tartrate (Lopressor) 25 mg BID PO Last administered on 11/07/16 22: 09; Admin Dose 25 MG; Start 11/05/16 at 21:00 Dabigatran (PRADaxa) 150 mg BID PO Last administered on 11/08/16 09:12; Admin Dose 150 MG; Start 11/05/16 at 21:00 Folic Acid (Folic Acid) 1 mg DAILY PO Last administered on 11/08/16 09:12; Admin Dose 1 MG; Start 11/07/16 at 18:00 Procedures Procedures provider notes/imaging reports reviewed CHAO CALHOUN Nov 08, 2016 17:46
--- NOTE | 2016-11-08 18:26 | PN ---
Date/Time of Note Date/Time of Note DATE: 11/08/16 TIME: 18:24 Assessment/Plan VTE Prophylaxis VTE Prophylaxis Intervention: contraindicated Lines/Catheters IV Catheter Type (from [facility]): PICC Line Central line still needed: No (Orders to remove this for entered in yesterday.) Urinary Cath still in place: No Assessment/Plan Problems: (1) Heart block Status: Acute Comment: She is functional with her pacemaker. The issue is that the PICC line is still in place and if you see the cardiology recommendations. The PICC line is still waiting to be discontinued. Please note orders for its removal were written yesterday Assessment/Plan Debility-she is appropriate for acute rehab and is accepted there as soon as we get the PICC line out Subjective 24 Hr Interval Summary Free Text/Dictation Patient reports she is feeling better and has no shortness of breath or dyspnea PND orthopnea. Constitutional: no complaints Respiratory: no complaints Cardiovascular: no complaints Gastrointestinal: no complaints Genitourinary: no complaints Exam/Review of Systems Vital Signs Vitals Vital Signs Date Time Temp Pulse Resp B/P Pulse Ox O2 Delivery O2 Flow Rate FiO2 11/08/16 16:23 97.5 72 18 142/63 98 11/08/16 08:00 Nasal Cannula 3.0 Intake and Output 11/07/16 11/07/16 11/08/16 15:00 23:00 07:00 Intake Total 850 ml 240 ml Balance 850 ml 240 ml Exam Constitutional: alert, oriented Neck: non-tender, supple Respiratory: clear to auscultation, normal air movement Gastrointestinal: nl liver, spleen, non-tender, soft Results Result Diagram: 11/08/16 0733 11/08/16 0733 Results 24 hrs Laboratory Tests Test 11/08/16 07:33 White Blood Count 7.1 # Red Blood Count 3.42 L Hemoglobin 12.1 Hematocrit 36.7 L Mean Corpuscular Volume 107.3 H Mean Corpuscular Hemoglobin 35.4 H Mean Corpuscular Hemoglobin Concent 33.0 Red Cell Distribution Width 12.7 Platelet Count 211 # Mean Platelet Volume 9.8 Neutrophils % 53.4 Lymphocytes % 28.8 Monocytes % 12.3 H Eosinophils % 4.1 Basophils % 1.0 Nucleated Red Blood Cells % 0.0 Neutrophils # (Manual) 3.8 Lymphocytes # 2.0 Monocytes # 0.9 Eosinophils # 0.3 Basophils # 0.1 Nucleated Red Blood Cells # 0.0 Sodium Level 139 Potassium Level 4.2 Chloride Level 101 Carbon Dioxide Level 24 Anion Gap 18 #H Blood Urea Nitrogen 23 H Creatinine 1.11 H Glucose Level 113 Calcium Level 9.3 Medications Medications Current Medications Ondansetron HCl (Zofran Inj) 4 mg Q6H PRN IV NAUSEA AND/OR VOMITING; Start 11/01 at 18:00 Acetaminophen (Tylenol Tab) 650 mg Q6H PRN PO PAIN LEVEL 1-3 OR FEVER Last administered on 11/06/16 17:18; Admin Dose 650 MG; Start 11/01/16 at 18:00 Lorazepam (Ativan) 1 mg Q2H PRN IV ANXIETY Last administered on 11/06/16 20:38 ; Admin Dose 1 MG; Start 11/01/16 at 18:00 Zolpidem Tartrate (Ambien) 5 mg QHS PRN PO INSOMNIA Last administered on 21:04; Admin Dose 5 MG; Start 11/01/16 at 18:00 Bisacodyl (Dulcolax) 5 mg DAILY PRN PO CONSTIPATION; Start 11/01/16 at 18:00 Diazepam (Valium) 2.5 mg Q6H PRN IV ANXIETY Last administered on 11/03/16 00: 19; Admin Dose 2.5 MG; Start 11/02/16 at 11:00 Quetiapine Fumarate (Seroquel) 25 mg BID PRN PO AGITATION Last administered on 11/04/16 20:07; Admin Dose 25 MG; Start 11/02/16 at 15:30 Haloperidol (Haldol) 0.5 mg Q6H PRN IV DELIRIUM; Start 11/02/16 at 21:00; Status Future Hold Miscellaneous Information (Pending Santyl Order For Wound Care) This patient ramirez... PRN PRN XX WOUND CARE; Start 11/03/16 at 08:00 IV Flush (NS 10 ml) 10 ml PRN PRN IV FLUSH LINE Last administered on 11/07/16 05:44; Admin Dose 10 ML; Start 11/03/16 at 10:30 Morphine Sulfate (morphine) 2 mg Q4H PRN IV PAIN Last administered on 18:42; Admin Dose 2 MG; Start 11/03/16 at 18:30 Famotidine (Pepcid) 20 mg DAILY PO Last administered on 11/08/16 09:12; Admin Dose 20 MG; Start 11/05/16 at 09:00 Tramadol HCl (Ultram) 50 mg Q6H PRN PO PAIN Last administered on 11/07/16 14: 09; Admin Dose 50 MG; Start 11/05/16 at 13:00 Metoprolol Tartrate (Lopressor) 25 mg BID PO Last administered on 11/07/16 22: 09; Admin Dose 25 MG; Start 11/05/16 at 21:00 Dabigatran (PRADaxa) 150 mg BID PO Last administered on 11/08/16 09:12; Admin Dose 150 MG; Start 11/05/16 at 21:00 Folic Acid (Folic Acid) 1 mg DAILY PO Last administered on 11/08/16 09:12; Admin Dose 1 MG; Start 11/07/16 at 18:00 SONIA ROSAS MD Nov 08, 2016 18:26
[2016-11-08] MEDS: ACETAMINOPHEN 325 MG TAB PO PRN (21:57)
[2016-11-09] VITALS (11 sets, daily range): BP systolic 116–140; BP diastolic 57–66; PULSE 69–71; RESP 16–19
[2016-11-09] MEDS: LEVOTHYROXINE 137 MCG TAB PO SCH (06:11)
[2016-11-09] MEDS: METOPROLOL 25 MG TAB PO SCH (08:38)
[2016-11-09] MEDS: FOLIC ACID 1 MG TAB PO SCH (08:38)
[2016-11-09] MEDS: FAMOTIDINE 20 MG TAB PO SCH (08:39)
[2016-11-09] MEDS: DABIGATRAN 150 MG CAP PO SCH (08:39)
--- NOTE | 2016-11-09 11:26 | RADRPT ---
PROCEDURE: FLUOROSCOPICALLY GUIDED LEFT PICC LINE REMOVAL CLINICAL INDICATION: Left-sided PICC line, left-sided pacemaker TECHNIQUE: Under fluoroscopic guidance, a left-sided PICC line was removed. The left-sided pacer wires were un changed in position during the removal. COMPARISON: None FINDINGS: Left-sided PICC line, left-sided pacemaker. RPTAT: AVH IMPRESSION: Uncomplicated removal of a left-sided PICC line under fluoroscopic guidance. Alex Solis Physician Date Time Electronically viewed and signed by Alex Solis Physician on 11/09/2016 11:25 RA/
--- NOTE | 2016-11-09 17:52 | DS ---
Date/Time of Note Date/Time of Note DATE: 11/09/16 TIME: 17:48 Discharge Summary Admission/Discharge Info Admit Date/Time Nov 02, 2016 at 08:15 Discharge Date/Time November 09, 2016 Discharge Diagnosis Heart block; CHF; diastolic dysfunction; acute kidney injury-resolved Patient Condition: Fair Consults Cardiology Procedures OPERATION PERFORMED: Implantation of VVI pacemaker. Echocardiogram PICC line Hx of Present Illness This is one of several [facility] admissions for this 85-year-old woman admitted with chief complaint of weakness and extreme bradycardia. Mrs. Herzog is an 85-year-old patient of mine who was seen in my office today complaining of somewhat being weak. Upon attempting to get her blood pressure it was obtainable with great difficulty, noted that her pulse rate was quite low. The patient was hooked up to EKG machine and noted that her heart rate was somewhere between 25 and 30, blood pressure in the low 100's by palpation and the patient was brought to the emergency room from my office with the above complaints after consultation with her insurance underwriter sales, Dr. Tommy Carrion. 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 s/p single lead ppm pacing at 70bpm vvi - s/p L side single lead PPM - cont metoprolol given h/o PAF - will need to pull picc line under fluoro to avoid lead dislodgement given on the same side as new ppm PAF- - cont anticoag - cont metoprolol HTN- - home meds restarted Delerium- resolved . likely partly medication induced with benzos + poor perfusion from bradycardia/heart block LIZY- cr improved 86-year-old female who had been living independently. She was brought in for the heart block. Her course was complicated by a brief bit of heart failure which is part and parcel her diastolic dysfunction. She ultimately underwent placement of the pacemaker as above. With this she had improvement in her symptoms and strength. However due to her debility she was not deemed appropriate for safety for being able to send home alone. As such she has been referred to the acute rehabilitation unit she will be discharge from here to that unit. Her rehabilitation potential is fair to good. She has no known communicable diseases she is not hazard to herself or others she is competent for decision Home Meds Reported Medications Venlafaxine Hcl* (Venlafaxine Hcl*) 75 Mg Tablet, 150 MG PO DAILY, TAB 11/01/16 Duloxetine Hcl* (Duloxetine Hcl*) 60 Mg Capsule.dr, 60 MG PO DAILY, #30 CAP 11/01/16 Tramadol Hcl* (Ultram*) 50 Mg Tablet, 50 MG PO Q6H Y for PAIN, TAB 11/01/16 Pravastatin Sodium* (Pravastatin Sodium*) 40 Mg Tablet, 40 MG PO HS, TAB 11/01/16 Spironolactone* (Aldactone*) 5 Mg/Ml (COMPOUNDED) Susp, 12.5 MG PO DAILY for 30 Days, ML (COMPOUNDED) 11/01/16 Dabigatran Etexilate Mesylate* (Pradaxa*) 150 Mg Capsule, 150 MG PO BID, CAP 11/01/16 Metoprolol Succinate* (Toprol XL*) 100 Mg Tab.sr.24h, 100 MG PO DAILY, #30 TAB 11/01/16 Losartan Potassium* (Losartan Potassium*) 25 Mg Tablet, 25 MG PO DAILY, TAB 11/01/16 Levothyroxine Sodium* (Levothyroxine Sodium*) 137 Mcg Tablet, 137 MCG PO BEFORE BREAKFAST, #30 TAB 11/01/16 Furosemide* (Furosemide*) 40 Mg Tablet, 40 MG PO BID, TAB 11/01/16 Amiodarone Hcl* (Amiodarone Hcl*) 100 Mg Tablet, 100 MG PO DAILY, #30 TAB 11/01/16 Primary Care Provider Reese Murrieta MD Time spent on discharge: > 30 minutes SONIA ROSAS MD Nov 09, 2016 17:52
[2016-11-09] MEDS ORDERED: METO-448 PO (17:55)
== END 2016-11-09 21:03 | DRG 243 ==
LOC: E/R 16:04 → ICU 11-02 08:15 → MS4 11-04 09:40
PROVIDERS: ADMIT Internal Medicine; ATTEND Internal Medicine
PROC: 02HV33Z Insertion of Infusion Device into Superior Vena Cava, Percutaneous Approach (ICD-10-PCS; 2016-11-03)
PROC: B548ZZA Ultrasonography of Superior Vena Cava, Guidance (ICD-10-PCS; 2016-11-03)
PROC: 0JH606Z Insertion of Pacemaker, Dual Chamber into Chest Subcutaneous Tissue and Fascia, Open Approach (ICD-10-PCS; principal; 2016-11-03 16:00)
PROC: 02H63JZ Insertion of Pacemaker Lead into Right Atrium, Percutaneous Approach (ICD-10-PCS; 2016-11-03 16:00)
DX: I44.2 Atrioventricular block, complete (principal); F11.921 Opioid use, unspecified with intoxication delirium; N17.9 Acute kidney failure, unspecified; I50.30 Unspecified diastolic (congestive) heart failure; I10 Essential (primary) hypertension; I44.1 Atrioventricular block, second degree; I48.0 Paroxysmal atrial fibrillation; F32.9 Major depressive disorder, single episode, unspecified; E89.0 Postprocedural hypothyroidism; M79.7 Fibromyalgia; E78.5 Hyperlipidemia, unspecified; R25.1 Tremor, unspecified; M19.90 Unspecified osteoarthritis, unspecified site; E87.6 Hypokalemia; T42.4X5A Adverse effect of benzodiazepines, initial encounter; Y92.230 Patient room in hospital as the place of occurrence of the external cause; Z87.891 Personal history of nicotine dependence; Z90.710 Acquired absence of both cervix and uterus
CPT/HCPCS: 36415; 36569; 36589; 36600; 71010; 75820; 76937; 80048; 80053; 80162; 82550; 82553; 82803; 82962; 83735; 83880; 84439; 84443; 84484; 85025; 85610; 85730; 87081; 93005; 93306; 96372; 96374; 96375; 96376; 97003; 97110; 97116; 97162; 97166; 97530; 97535; C1769; C1786; C1898; J0461; J0690; J1265; J1630; J1940; J2060; J2250; J2270; J3010; J3360; J3420; J3480; J7040; J7042; J7070; Q9967

== ENCOUNTER 2016-11-09 18:52 | Inpatient (IN) | payer MEDICARE, OTHER ==
[~2016-11-09] VITALS: Ht 160 cm; Wt 67.8 kg
[~2016-11-09 18:52] MED LIST changes: +ALDS PO; +AMIO100T4 PO; +DULO60CA59 PO; +FURO40TA4 PO; +LEVO137T3 PO; +METO-448 PO; +METO100T13 PO; +PRAV40TA76 PO; +TRAM-40 PO; +TRAM100T2 PO; +VENL75TA PO; +[UNRECOGNIZED DRUG - CODE] PO
[2016-11-09 21:30] VITALS: BP 131/61; RESP 18
[2016-11-09 21:46] VITALS: Ht 160 cm; Wt 67.8 kg
[2016-11-09] MEDS ORDERED: ACETAMINOPHEN 325 MG TAB PO PRN (22:00)
[2016-11-09] MEDS ORDERED: ALBUTEROL 0.083% (NEB) 2.5 MG/3 ML AMP INH PRN (22:00)
[2016-11-09] MEDS ORDERED: ONDANSETRON 4 MG TAB PO PRN (22:00)
[2016-11-09] MEDS ORDERED: DIAZEPAM 5 MG TAB PO PRN (22:30)
[2016-11-09] MEDS ORDERED: BISACODYL (EC) 5 MG TAB PO PRN (22:30)
[2016-11-09] MEDS: METOPROLOL 25 MG TAB PO SCH (23:24)
[2016-11-09] MEDS: DABIGATRAN 75 MG CAP PO SCH (23:24)
[2016-11-10 02:00] VITALS: BP 135/68; RESP 18
[2016-11-10] MEDS: LEVOTHYROXINE 137 MCG TAB PO SCH (06:44)
[2016-11-10 06:54] LABS: ADD UMIC YES; UR ASCORBIC ACID NEGATIVE (NEGATIVE); UR BILIRUBIN (Dip) NEGATIVE (NEGATIVE); UR BLOOD (Dip) NEGATIVE (NEGATIVE); UR CLARITY CLEAR (CLEAR); UR COLOR YELLOW (YELLOW); UR GLUCOSE (Dip) NEGATIVE (NEGATIVE); UR KETONES (Dip) NEGATIVE (NEGATIVE); UR LEUKOCYTE ESTERASE (Dip) 1+ Leu/ul (NEGATIVE); UR NITRITE (Dip) NEGATIVE (NEGATIVE); UR RBC 4 /HPF (0-5); UR TOTAL PROTEIN (Dip) NEGATIVE (NEGATIVE); UR UROBILINOGEN (Dip) 2+ mg/dL (NEGATIVE)
[2016-11-10 06:58] LABS: BASOPHIL # 0.1 10^3/ul (0.0-0.1); EOSINOPHILS # 0.2 10^3/ul (0.0-0.5); EOSINOPHILS % 3.8 % (0.0-7.0); HEMATOCRIT 33.9 % (37.0-47.0); HEMOGLOBIN 11.3 g/dl (12.0-16.0); LYMPHOCYTES % 20.7 % (15.0-51.0); MEAN CORPUSCULAR HEMOGLOBIN 35.8 pg (29.0-33.0); MEAN CORPUSCULAR HGB CONC 33.3 g/dl (32.0-37.0); MEAN CORPUSCULAR VOLUME 107.3 fl (82.0-101.0); MEAN PLATELET VOLUME 9.7 fl (7.4-10.4); MONOCYTE # 0.6 10^3/ul (0.3-0.9); MONOCYTES % 11.7 % (0.0-11.0); NEUTROPHILS % 62.4 % (39.0-77.0); PLATELET COUNT 223 10^3/UL (140-415); RED BLOOD COUNT 3.16 10^6/ul (4.20-5.40); RED CELL DISTRIBUTION WIDTH 12.7 % (11.5-14.5)
[2016-11-10 07:28] LABS: ALBUMIN 3.5 g/dl (3.3-4.9); ALBUMIN/GLOBULIN RATIO 1.12; BILIRUBIN,INDIRECT 0.4 mg/dl (0-1.1); BILIRUBIN,TOTAL 0.4 mg/dl (0.2-1.3); CALCIUM 9.3 mg/dl (8.4-10.2); CREATININE 0.93 mg/dl (0.44-1.00); POTASSIUM 4.3 mmol/L (3.5-5.1); TOTAL PROTEIN 6.6 g/dl (6.1-8.1)
[2016-11-10 07:30] VITALS: BP 131/66; RESP 20
[2016-11-10] MEDS: DABIGATRAN 75 MG CAP PO SCH ×2 (08:24→21:21)
[2016-11-10] MEDS: FOLIC ACID 1 MG TAB PO SCH (08:24)
[2016-11-10] MEDS: FAMOTIDINE 20 MG TAB PO SCH (08:25)
[2016-11-10] MEDS: METOPROLOL 25 MG TAB PO SCH ×2 (08:25→21:21)
--- NOTE | 2016-11-10 13:35 | CONS ---
DATE OF ADMISSION: 11/09/2016 DATE OF CONSULTATION: 11/10/2016 Rehabilitation Post Admission Physician Evaluation. REHABILITATION IMPAIRMENT CATEGORY: Toxic metabolic encephalopathy. ACTIVE COMORBIDITIES: 1. Cardiac debility due to bradycardia and pacemaker placement. 2. CHF. 3. Status post pacemaker placement. 4. Hypertension. 5. Acute kidney injury, which has improved. 6. Impairments in self-care, mobility and cognition. HISTORY OF PRESENT ILLNESS: The patient is a very pleasant 86- year-old female with a history of CHF and atrial fibrillation, who was admitted to [facility] for symptomatic bradycardia and hypotension. The patient initially required ICU monitoring and was also noted to have altered mental status presumed secondary to encephalopathy. The patient underwent permanent pacemaker placement. The patient is noted to have significant impairments in self-care, mobility and cognition as compared to baseline and has been cleared to transfer to the rehabilitation unit for comprehensive interdisciplinary rehab care. FUNCTIONAL HISTORY: Prior to recent events, she was independent in self-care tasks and mobility. Currently, patient requires moderate assist for self-care and mobility tasks. SOCIAL HISTORY: Patient lives at home with family and hopes to return there upon discharge. PAST MEDICAL HISTORY: 1. Atrial fibrillation. 2. Hypertension. MEDICATION: 1. Albuterol inhaler. 2. Pradaxa 150 p.o. b.i.d. 3. Valium p.r.n. 4. Pepcid 20 mg p.o. q.day. 5. Folic acid 1 mg p.o. q.day. 6. Synthroid 137 mcg p.o. in the morning. 7. Lopressor 25 mg p.o. b.i.d. ALLERGIES: PATIENT WITH NO KNOWN DRUG ALLERGIES. PHYSICAL EXAMINATION: GENERAL APPEARANCE: She is currently afebrile with stable vital signs. HEENT: The extraocular motions appear intact. Oropharynx clear. NECK: Supple. LUNGS: Clear anteriorly. HEART: S1, S2. ABDOMEN: Soft, nontender. Positive bowel sounds. NEUROLOGIC: She is awake and alert and oriented to person. She will follow simple one-step commands. She demonstrates antigravity strength in bilateral upper extremity and lower extremity. She has notable impaired dynamic balance. PLAN: Patient has been admitted for comprehensive interdisciplinary acute rehab and is anticipated to tolerate 3 hours of daily therapy in divided doses for at least 5/7 days a week. The treatment plan will include: 1. Physical therapy to focus on bed mobility, transfers and household ambulation with goal of having patient reach a standby assist level. 2. Occupational therapy to focus on hygiene, grooming, dressing, bathing and toileting activities with goal of having patient reach a standby assist level. 3. Rehabilitation nursing for carryover of therapeutic interventions. The goal of continent to bowel, bladder, and the goal of patient and family education with regard to the aforementioned issues. 4. Speech therapy for full cognitive assessment and retraining with the goal of having patient return to baseline cognition. ESTIMATED LENGTH OF STAY: 10 days. DISPOSITION GOAL: Home with family. REHABILITATION BARRIER: Cognition. INTERVENTION FOR BARRIER: Speech therapy. I acknowledged I performed a full physical examination on this patient within 24 hours of admission to the rehabilitation unit and believe the patient is a good candidate for comprehensive interdisciplinary rehab care and is anticipated to make reasonable goals in a reasonable period of time as outlined above. Dictated By: Leonardo Rodgers MD /patel/jad /Document#: [id number] SCOTT
[2016-11-10 14:00] VITALS: BP 130/59; RESP 18
[2016-11-10 19:25] VITALS: BP 117/56; RESP 19
[2016-11-10] MEDS: ZOLPIDEM 5 MG TAB PO PRN (21:21)
[2016-11-11 01:57] VITALS: BP 115/56; RESP 19
[2016-11-11] MEDS: LEVOTHYROXINE 137 MCG TAB PO SCH (06:39)
[2016-11-11 07:30] VITALS: BP 168/67; RESP 18
--- NOTE | 2016-11-11 09:46 | CONS ---
Date/Time of Note Date/Time of Note DATE: 11/11/16 TIME: 09:44 Consult Date/Type/Reason Admit Date/Time Nov 09, 2016 at 21:22 Initial Consult Date Subjective Comfortable Objective pulm-cta min assist ambulation Vital Signs Date Time Temp Pulse Resp B/P Pulse Ox O2 Delivery O2 Flow Rate FiO2 11/11/16 07:30 97.5 65 18 168/67 100 Intake and Output 11/10/16 11/10/16 11/11/16 15:00 23:00 07:00 Intake Total 650 ml Balance 650 ml Results/Medications Result Diagram: 11/10/1661911/10/16 0620 Results 24 hrs Laboratory Tests Test 11/11/16 08:34 Bedside Glucose 82 Medications Current Medications Ondansetron HCl (Zofran Tab) 4 mg Q6H PRN PO NAUSEA AND/OR VOMITING; Start at 22:00 Tramadol HCl (Ultram) 50 mg Q6H PRN PO PAIN; Start 11/09/16 at 22:00 Zolpidem Tartrate (Ambien) 5 mg HS PRN PO INSOMNIA Last administered on 21:21; Admin Dose 5 MG; Start 11/09/16 at 22:00 Metoprolol Tartrate (Lopressor) 25 mg BID PO Last administered on 11/10/16 21: 21; Admin Dose 25 MG; Start 11/09/16 at 21:57 Acetaminophen (Tylenol Tab) 650 mg Q6H PRN PO PAIN AND OR ELEVATED TEMP; Start 11/09/16 at 22:00 Bisacodyl (Dulcolax) 5 mg DAILY PRN PO CONSTIPATION; Start 11/09/16 at 22:30 Dabigatran (PRADaxa) 75 mg BID PO Last administered on 11/10/16 21:21; Admin Dose 75 MG; Start 11/09/16 at 22:02 Diazepam (Valium) 2.5 mg Q6H PRN PO ANXIETY Last administered on 11/09/16 23: 25; Admin Dose 2.5 MG; Start 11/09/16 at 22:30 Famotidine (Pepcid) 20 mg DAILY PO Last administered on 11/10/16 08:25; Admin Dose 20 MG; Start 11/10/16 at 09:00 Folic Acid (Folic Acid) 1 mg DAILY PO Last administered on 11/10/16t 08:24; Admin Dose 1 MG; Start 11/10/16 at 09:00 Assessment/Plan Additional Assessment/Plan Rehabilitation- Toxic metabolic encephalopathy; Cardiac debility due to bradycardia and pacemaker placement. Progressing with interdisciplinary rehab program Cardiac- Status post pacemaker placement Hypertension. NEEL ARDON MD Nov 11, 2016 09:45
[2016-11-11] MEDS: FAMOTIDINE 20 MG TAB PO SCH (12:22)
[2016-11-11] MEDS: FOLIC ACID 1 MG TAB PO SCH (12:23)
[2016-11-11] MEDS: DABIGATRAN 75 MG CAP PO SCH ×2 (12:23→20:08)
[2016-11-11 12:26] VITALS: BP 149/69; PULSE 80
[2016-11-11] MEDS: METOPROLOL 25 MG TAB PO SCH ×2 (12:26→20:09)
[2016-11-11 14:00] VITALS: BP 121/57; RESP 20
[2016-11-11] MEDS ORDERED: VITAMIN A & D 5 GM OINT PACKET TOP ONE (16:20)
[2016-11-11] MEDS: traMADol 50 MG TAB PO PRN ×2 (19:19→21:16)
[2016-11-11 19:57] VITALS: BP 124/62; RESP 18
[2016-11-11] MEDS: ZOLPIDEM 5 MG TAB PO PRN (20:10)
--- NOTE | 2016-11-11 20:53 | HP ---
Date/Time of Note Date/Time of Note DATE: 11/11/16 TIME: 20:50 Assessment/Plan VTE Prophylaxis VTE Prophylaxis Intervention: heparin Assessment/Plan Problems: (1) Osteoarthritis Status: Chronic Comment: She will go through rehabilitative care to get her ambulating ambulating. Prognosis is fair Qualifiers: Osteoarthritis location: unspecified site Osteoarthritis type: primary Qualified Code: M19.91 - Primary osteoarthritis, unspecified site (2) Diastolic dysfunction Status: Chronic Comment: She is on beta-blockade now that she can tolerate this therapeutic with improvement. (3) Moderate aortic stenosis by prior echocardiogram Status: Chronic Comment: This is a chronic condition. No additional medical therapeutics at this time are indicated. (4) Fibromyalgia Status: Chronic Comment: Noted. She is stable on medical therapy (5) Acquired hypothyroidism Status: Chronic Comment: She is stable on replacement. (6) Status post cardiac pacemaker procedure Status: Acute Comment: Her device is operational Assessment/Plan UTI-culture is pending we will adjust by sensitivity. The meantime we will treat with 1 dose of fosfomycin HPI/ROS Admit Date/Time Admit Date/Time Nov 09, 2016 at 21:22 Hx of Present Illness 86-year-old female transferred from the inpatient service the acute rehabilitation service. She had been under fair conditions. She developed complete heart block requiring admission. At that time she had heart failure diastolic dysfunction acute renal insufficiency and urinary tract infection. She underwent placement of a single-lead VVI pacemaker successfully is now transferred to acute rehab for rehabilitative care. ROS Constitutional: no complaints Eyes: no complaints ENT: no complaints Respiratory: no complaints Cardiovascular: no complaints Gastrointestinal: no complaints Genitourinary: no complaints Musculoskeletal: no complaints PMH/Family/Social Past Medical History Complete heart block; diastolic dysfunction; recent CHF; recent acute kidney injury resolved; hypothyroidism; osteoarthritis; osteoporosis Past Surgical History Pacemaker placement; status post LULU with BSO Past Surgical Hx: other Family History Significant Family History: no pertinent family hx Social History Alcohol Use: none Smoking Status: Former smoker Drug Use: none Exam/Review of Systems Vital Signs Vitals Vital Signs Date Time Temp Pulse Resp B/P Pulse Ox O2 Delivery O2 Flow Rate FiO2 11/11/16 19:57 98.5 70 18 124/62 92 Intake and Output 11/10/16 11/10/16 11/11/16 15:00 23:00 07:00 Intake Total 650 ml Balance 650 ml Exam Constitutional: alert, oriented Head: atraumatic, normocephalic Neck: non-tender, supple Respiratory: clear to auscultation, normal air movement Cardiovascular: nl pulses, regular rate and rhythm Gastrointestinal: nl liver, spleen, non-tender, soft Extremities: normal pulses Neurological: DAT[employer] DEVELOPER II-XII intact, nl mental status, nl speech, nl strength Skin: nl turgor, rash or lesions Labs Result Diagram: 11/10/1661911/10/16619 Medications Medications Current Medications Ondansetron HCl (Zofran Tab) 4 mg Q6H PRN PO NAUSEA AND/OR VOMITING; Start at 22:00 Tramadol HCl (Ultram) 50 mg Q6H PRN PO PAIN; Start 11/09/16 at 22:00 Zolpidem Tartrate (Ambien) 5 mg HS PRN PO INSOMNIA Last administered on 20:10; Admin Dose 5 MG; Start 11/09/16 at 22:00 Metoprolol Tartrate (Lopressor) 25 mg BID PO Last administered on 11/11/16 20: 09; Admin Dose 25 MG; Start 11/09/16 at 21:57 Acetaminophen (Tylenol Tab) 650 mg Q6H PRN PO PAIN AND OR ELEVATED TEMP; Start 11/09/16 at 22:00 Bisacodyl (Dulcolax) 5 mg DAILY PRN PO CONSTIPATION; Start 11/09/16 at 22:30 Dabigatran (PRADaxa) 75 mg BID PO Last administered on 11/11/16 20:08; Admin Dose 75 MG; Start 11/09/16 at 22:02 Diazepam (Valium) 2.5 mg Q6H PRN PO ANXIETY Last administered on 11/09/16 23: 25; Admin Dose 2.5 MG; Start 11/09/16 at 22:30 Famotidine (Pepcid) 20 mg DAILY PO Last administered on 11/11/16 12:22; Admin Dose 20 MG; Start 11/10/16 at 09:00 Folic Acid (Folic Acid) 1 mg DAILY PO Last administered on 11/11/16 12:23; Admin Dose 1 MG; Start 11/10/16 at 09:00 SONIA ROSAS MD Nov 11, 2016 20:53
[2016-11-11] MEDS ORDERED: FOSFOMYCIN 3 GM PACKET PO ONE (21:00)
[2016-11-12 02:00] VITALS: BP 128/65; RESP 18
[2016-11-12] MEDS: LEVOTHYROXINE 137 MCG TAB PO SCH (06:42)
[2016-11-12 08:00] VITALS: BP 145/60; RESP 18
[2016-11-12] MEDS: DABIGATRAN 75 MG CAP PO SCH ×2 (08:41→20:24)
[2016-11-12] MEDS: METOPROLOL 25 MG TAB PO SCH ×2 (08:42→20:24)
[2016-11-12] MEDS: FOLIC ACID 1 MG TAB PO SCH (08:42)
[2016-11-12] MEDS: FAMOTIDINE 20 MG TAB PO SCH (08:42)
[2016-11-12 08:46] VITALS: BP 145/63; PULSE 68; RESP 16
--- NOTE | 2016-11-12 11:14 | CONS ---
Date/Time of Note Date/Time of Note DATE: 11/12/16 TIME: 11:13 Consult Date/Type/Reason Admit Date/Time Nov 09, 2016 at 21:22 Subjective Doing well Objective pulm-cta abd-soft min assist ambulation Vital Signs Date Time Temp Pulse Resp B/P Pulse Ox O2 Delivery O2 Flow Rate FiO2 11/12/16 08:46 68 16 145/63 97 Room Air 11/12/16 08:00 98.1 Intake and Output 11/11/16 11/11/16 11/12/16 15:00 23:00 07:00 Intake Total 420 ml 800 ml Output Total 1 ml 300 ml Balance 419 ml 500 ml Results/Medications Result Diagram: 11/10/16 0620 11/10/16 0620 Medications Current Medications Ondansetron HCl (Zofran Tab) 4 mg Q6H PRN PO NAUSEA AND/OR VOMITING; Start at 22:00 Tramadol HCl (Ultram) 50 mg Q6H PRN PO PAIN Last administered on 11/11/16 21: 16; Admin Dose 50 MG; Start 11/09/16 at 22:00 Zolpidem Tartrate (Ambien) 5 mg HS PRN PO INSOMNIA Last administered on 20:10; Admin Dose 5 MG; Start 11/09/16 at 22:00 Metoprolol Tartrate (Lopressor) 25 mg BID PO Last administered on 11/12/16 08: 42; Admin Dose 25 MG; Start 11/09/16 at 21:57 Acetaminophen (Tylenol Tab) 650 mg Q6H PRN PO PAIN AND OR ELEVATED TEMP; Start 11/09/16 at 22:00 Bisacodyl (Dulcolax) 5 mg DAILY PRN PO CONSTIPATION; Start 11/09/16 at 22:30 Dabigatran (PRADaxa) 75 mg BID PO Last administered on 11/12/16 08:41; Admin Dose 75 MG; Start 11/09/16 at 22:02 Diazepam (Valium) 2.5 mg Q6H PRN PO ANXIETY Last administered on 11/09/16 23: 25; Admin Dose 2.5 MG; Start 11/09/16 at 22:30 Famotidine (Pepcid) 20 mg DAILY PO Last administered on 11/12/16 08:42; Admin Dose 20 MG; Start 11/10/16 at 09:00 Folic Acid (Folic Acid) 1 mg DAILY PO Last administered on 11/12/16 08:42; Admin Dose 1 MG; Start 11/10/16 at 09:00 Assessment/Plan Additional Assessment/Plan Rehabilitation- Toxic metabolic encephalopathy; Cardiac debility due to bradycardia and pacemaker placement. Continue rehab program Cardiac- Status post pacemaker placement Hypertension. NEEL ARDON MD Nov 12, 2016 11:14
--- NOTE | 2016-11-12 14:31 | PN ---
Date/Time of Note Date/Time of Note DATE: 11/12/16 TIME: 14:28 Assessment/Plan VTE Prophylaxis VTE Prophylaxis Intervention: anti-embolic stocking Assessment/Plan Problems: (1) Osteoarthritis Status: Chronic Comment: Continue with physical therapy and rehabilitation to get the patient fully mobilized splint discharge to her home environment Qualifiers: Osteoarthritis location: unspecified site Osteoarthritis type: primary Qualified Code: M19.91 - Primary osteoarthritis, unspecified site (2) Diastolic dysfunction Status: Chronic Comment: stable on treatment (3) Moderate aortic stenosis by prior echocardiogram Status: Chronic Comment: noted, stable on current therapeutics (4) Status post cardiac pacemaker procedure Status: Acute Comment: doing well with cardiac control (5) Fibromyalgia Status: Chronic Comment: noted Subjective 24 Hr Interval Summary Free Text/Dictation Patient continues with rehabilitative care without complaints Respiratory: no complaints Cardiovascular: no complaints Gastrointestinal: no complaints Musculoskeletal: no complaints Exam/Review of Systems Vital Signs Vitals Vital Signs Date Time Temp Pulse Resp B/P Pulse Ox O2 Delivery O2 Flow Rate FiO2 11/12/16 08:46 68 16 145/63 97 Room Air 11/12/16 08:00 98.1 Intake and Output 11/11/16 11/11/16 11/12/16 15:00 23:00 07:00 Intake Total 420 ml 800 ml Output Total 1 ml 300 ml Balance 419 ml 500 ml Exam Constitutional: alert, oriented Neck: non-tender, supple Respiratory: clear to auscultation, normal air movement Cardiovascular: nl pulses, regular rate and rhythm (Paced) Results Result Diagram: 11/10/16 0620 11/10/16 0620 Medications Medications Current Medications Ondansetron HCl (Zofran Tab) 4 mg Q6H PRN PO NAUSEA AND/OR VOMITING; Start at 22:00 Tramadol HCl (Ultram) 50 mg Q6H PRN PO PAIN Last administered on 11/11/16 21: 16; Admin Dose 50 MG; Start 11/09/16 at 22:00 Zolpidem Tartrate (Ambien) 5 mg HS PRN PO INSOMNIA Last administered on 20:10; Admin Dose 5 MG; Start 11/09/16 at 22:00 Metoprolol Tartrate (Lopressor) 25 mg BID PO Last administered on 11/12/16 08: 42; Admin Dose 25 MG; Start 11/09/16 at 21:57 Acetaminophen (Tylenol Tab) 650 mg Q6H PRN PO PAIN AND OR ELEVATED TEMP; Start 11/09/16 at 22:00 Bisacodyl (Dulcolax) 5 mg DAILY PRN PO CONSTIPATION; Start 11/09/16 at 22:30 Dabigatran (PRADaxa) 75 mg BID PO Last administered on 11/12/16 08:41; Admin Dose 75 MG; Start 11/09/16 at 22:02 Diazepam (Valium) 2.5 mg Q6H PRN PO ANXIETY Last administered on 11/09/16 23: 25; Admin Dose 2.5 MG; Start 11/09/16 at 22:30 Famotidine (Pepcid) 20 mg DAILY PO Last administered on 11/12/16 08:42; Admin Dose 20 MG; Start 11/10/16 at 09:00 Folic Acid (Folic Acid) 1 mg DAILY PO Last administered on 11/12/16 08:42; Admin Dose 1 MG; Start 11/10/16 at 09:00 SONIA ROSAS MD Nov 12, 2016 14:31
[2016-11-12 20:00] VITALS: BP 140/65; RESP 18
[2016-11-13] MEDS: LEVOTHYROXINE 137 MCG TAB PO SCH (06:34)
[2016-11-13 08:19] VITALS: BP 149/66; PULSE 66; PULSE 98; RESP 16
[2016-11-13] MEDS: FOLIC ACID 1 MG TAB PO SCH (08:28)
[2016-11-13] MEDS: FAMOTIDINE 20 MG TAB PO SCH (08:28)
[2016-11-13] MEDS: DABIGATRAN 75 MG CAP PO SCH ×2 (08:28→20:28)
[2016-11-13] MEDS: METOPROLOL 25 MG TAB PO SCH ×2 (08:29→20:29)
--- NOTE | 2016-11-13 13:06 | PN ---
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 Continue same treatment plans at discharge (2) Heart block AV third degree Status: Acute Comment: Status post pacemaker placement (3) E. coli UTI Status: Acute Comment: Treat with antibiotics as per culture results (4) Status post cardiac pacemaker procedure Status: Acute Comment: Successful placement (5) Acquired hypothyroidism Status: Chronic Comment: Continue replacement therapy (6) Fibromyalgia Status: Chronic Comment: Noted stable keegan medication (7) Moderate aortic stenosis by prior echocardiogram Status: Chronic Comment: Noted and stable. (8) Diastolic dysfunction Status: Chronic Comment: On appropriate beta-blockade therapy therapeutically with good outcome (9) Osteoarthritis Status: Chronic Comment: Physical therapy and rehab in the acute rehabilitation unit Qualifiers: Osteoarthritis location: unspecified site Osteoarthritis type: primary Qualified Code: M19.91 - Primary osteoarthritis, unspecified site Subjective 24 Hr Interval Summary Free Text/Dictation Patient sitting in wheelchair eating lunch with her son present offers no complaints Constitutional: no complaints Respiratory: no complaints Cardiovascular: no complaints Gastrointestinal: no complaints Genitourinary: no complaints Exam/Review of Systems Vital Signs Vitals Vital Signs Date Time Temp Pulse Resp B/P Pulse Ox O2 Delivery O2 Flow Rate FiO2 11/13/16 08:19 98.3 66 16 149/66 97 Room Air Intake and Output 11/12/16 11/12/16 11/13/16 15:00 23:00 07:00 Intake Total 800 ml 1180 ml 740 ml Output Total 600 ml 300 ml Balance 800 ml 580 ml 440 ml Exam Oriented to person place Constitutional: alert Neck: non-tender, supple Respiratory: clear to auscultation, normal air movement Cardiovascular: nl pulses, other (Left chest wall subcutaneous pacemaker with Steri-Strips wound is clean), regular rate and rhythm Gastrointestinal: nl liver, spleen, non-tender, soft Results Result Diagram: 11/10/1620 11/10/16 0620 Medications Medications Current Medications Ondansetron HCl (Zofran Tab) 4 mg Q6H PRN PO NAUSEA AND/OR VOMITING; Start 8/ 16/17 at 22:00 Tramadol HCl (Ultram) 50 mg Q6H PRN PO PAIN Last administered on 11/11/16 21: 16; Admin Dose 50 MG; Start 11/09/16 at 22:00 Zolpidem Tartrate (Ambien) 5 mg HS PRN PO INSOMNIA Last administered on 20:10; Admin Dose 5 MG; Start 11/09/16 at 22:00 Metoprolol Tartrate (Lopressor) 25 mg BID PO Last administered on 11/13/16 08: 29; Admin Dose 25 MG; Start 11/09/16 at 21:57 Acetaminophen (Tylenol Tab) 650 mg Q6H PRN PO PAIN AND OR ELEVATED TEMP; Start 11/09/16 at 22:00 Bisacodyl (Dulcolax) 5 mg DAILY PRN PO CONSTIPATION; Start 11/09/16 at 22:30 Dabigatran (PRADaxa) 75 mg BID PO Last administered on 11/13/16 08:28; Admin Dose 75 MG; Start 11/09/16 at 22:02 Diazepam (Valium) 2.5 mg Q6H PRN PO ANXIETY Last administered on 11/09/16 23: 25; Admin Dose 2.5 MG; Start 11/09/16 at 22:30 Famotidine (Pepcid) 20 mg DAILY PO Last administered on 11/13/16 08:28; Admin Dose 20 MG; Start 11/10/16 at 09:00 Folic Acid (Folic Acid) 1 mg DAILY PO Last administered on 11/13/16 08:28; Admin Dose 1 MG; Start 11/10/16 at 09:00 SONIA ROSAS MD Nov 13, 2016 13:06
[2016-11-13] MEDS: TRIMETHOPRIM/SULFAMETHOX (DS) TAB PO SCH ×2 (14:30→22:16)
[2016-11-13 20:00] VITALS: BP 128/60; RESP 18
[2016-11-13] MEDS: ZOLPIDEM 5 MG TAB PO PRN (22:16)
[2016-11-14 02:00] VITALS: BP 118/58; RESP 18
[2016-11-14] MEDS: LEVOTHYROXINE 137 MCG TAB PO SCH (07:09)
[2016-11-14 07:30] VITALS: BP 115/58; RESP 20
[2016-11-14] MEDS: FOLIC ACID 1 MG TAB PO SCH (08:56)
[2016-11-14] MEDS: TRIMETHOPRIM/SULFAMETHOX (DS) TAB PO SCH ×2 (08:56→20:26)
[2016-11-14] MEDS: DABIGATRAN 75 MG CAP PO SCH ×2 (08:56→20:26)
[2016-11-14] MEDS: METOPROLOL 25 MG TAB PO SCH ×2 (08:57→20:27)
[2016-11-14] MEDS: FAMOTIDINE 20 MG TAB PO SCH (08:57)
--- NOTE | 2016-11-14 09:22 | CONS ---
Date/Time of Note Date/Time of Note DATE: 11/14/16 TIME: 09:21 Consult Date/Type/Reason Admit Date/Time Nov 09, 2016 at 21:22 Objective Vital Signs Date Time Temp Pulse Resp B/P Pulse Ox O2 Delivery O2 Flow Rate FiO2 11/14/16 07:30 98.5 74 20 115/58 93 11/13/16 08:19 Room Air Intake and Output 11/13/16 11/13/16 11/14/16 15:00 23:00 07:00 Intake Total 780 ml 400 ml Output Total 850 ml Balance -70 ml 400 ml Exam INTERDISCIPLINARY TEAM CONFERENCE BOWEL- Cont BLADDER-Cont SKIN- intact OT- DRESSING-standby assist BATHING-standby assist TOILETING-standby assist PT- BED MOBILITY-standby assist [id number] assist 100 feet SPEECH- COGNITION-moderate A/P- Interdisciplinary team conference held today. Please see interdisciplinary sheet. Working toward d.c. on 11/17 with post discharge follow up of physical therapy, occupational therapy. Results/Medications Result Diagram: 11/10/16 0620 11/10/16 0620 Medications Current Medications Ondansetron HCl (Zofran Tab) 4 mg Q6H PRN PO NAUSEA AND/OR VOMITING; Start at 22:00 Tramadol HCl (Ultram) 50 mg Q6H PRN PO PAIN Last administered on 11/11/16 21: 16; Admin Dose 50 MG; Start 11/09/16 at 22:00 Zolpidem Tartrate (Ambien) 5 mg HS PRN PO INSOMNIA Last administered on 22:16; Admin Dose 5 MG; Start 11/09/16 at 22:00 Metoprolol Tartrate (Lopressor) 25 mg BID PO Last administered on 11/14/16 08: 57; Admin Dose 25 MG; Start 11/09/16 at 21:57 Acetaminophen (Tylenol Tab) 650 mg Q6H PRN PO PAIN AND OR ELEVATED TEMP; Start 11/09/16 at 22:00 Bisacodyl (Dulcolax) 5 mg DAILY PRN PO CONSTIPATION; Start 11/09/16 at 22:30 Dabigatran (PRADaxa) 75 mg BID PO Last administered on 11/14/16 08:56; Admin Dose 75 MG; Start 11/09/16 at 22:02 Diazepam (Valium) 2.5 mg Q6H PRN PO ANXIETY Last administered on 11/09/16 23: 25; Admin Dose 2.5 MG; Start 11/09/16 at 22:30 Famotidine (Pepcid) 20 mg DAILY PO Last administered on 11/14/16 08:57; Admin Dose 20 MG; Start 11/10/16 at 09:00 Folic Acid (Folic Acid) 1 mg DAILY PO Last administered on 11/14/16 08:56; Admin Dose 1 MG; Start 11/10/16 at 09:00 Trimethoprim/ Sulfamethoxazole (Bactrim (Ds)) 1 tab BID PO Last administered on 11/14/16 08:56; Admin Dose 1 TAB; Start 11/13/16 at 13:30; Stop 11/16/16 at 13:29 NEEL ARDON MD Nov 14, 2016 09:21 NEEL ARDON MD Nov 14, 2016 09:21
--- NOTE | 2016-11-14 13:29 | PN ---
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 The family informs they do wish to have as her prior to that for cleaning up at her house and reports that she had been hoping. In addition the replaced on the carpet so that the environment at home will be safer for her. I am in agreement. (2) Diastolic dysfunction Status: Chronic Comment: Stable on treatment (3) Moderate aortic stenosis by prior echocardiogram Status: Chronic Comment: Noted and stable on current treatment (4) Status post cardiac pacemaker procedure Status: Acute Comment: She is operational. Cardiology will follow her as an outpatient (5) E. coli UTI Status: Acute Comment: Completing antibiotic therapy (6) Acquired hypothyroidism Status: Chronic Comment: Stable and euthyroid on current dosage of medication or (7) Fibromyalgia Status: Chronic Comment: Stable (8) Osteoarthritis Status: Chronic Comment: Continue with physical therapy and rehab Qualifiers: Osteoarthritis location: unspecified site Osteoarthritis type: primary Qualified Code: M19.91 - Primary osteoarthritis, unspecified site Subjective 24 Hr Interval Summary Free Text/Dictation Should sit up in bed conversing with her daughter. Patient reports no complaints except that her D knees do ache Constitutional: no complaints Respiratory: no complaints Cardiovascular: no complaints Gastrointestinal: no complaints Neurologic: no complaints (Sports no evidence please see the exam) Exam/Review of Systems Vital Signs Vitals Vital Signs Date Time Temp Pulse Resp B/P Pulse Ox O2 Delivery O2 Flow Rate FiO2 11/14/16 07:30 98.5 74 20 115/58 93 11/13/16 08:19 Room Air Intake and Output 11/13/16 11/13/16 11/14/16 15:00 23:00 07:00 Intake Total 780 ml 400 ml Output Total 850 ml Balance -70 ml 400 ml Exam Oriented times person vaguely for place not for time Constitutional: alert Psych: confusion, nl mood/affect, no complaints Head: atraumatic, normocephalic Respiratory: clear to auscultation, normal air movement Cardiovascular: nl pulses, regular rate and rhythm Neurological: 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 II-XII intact, nl speech, nl strength, other (MMSE score is 20 out of 30) Results Result Diagram: 11/10/16 0620 11/10/16 0620 Medications Medications Current Medications Ondansetron HCl (Zofran Tab) 4 mg Q6H PRN PO NAUSEA AND/OR VOMITING; Start at 22:00 Tramadol HCl (Ultram) 50 mg Q6H PRN PO PAIN Last administered on 11/11/16 21: 16; Admin Dose 50 MG; Start 11/09/16 at 22:00 Zolpidem Tartrate (Ambien) 5 mg HS PRN PO INSOMNIA Last administered on 22:16; Admin Dose 5 MG; Start 11/09/16 at 22:00 Metoprolol Tartrate (Lopressor) 25 mg BID PO Last administered on 11/14/16 08: 57; Admin Dose 25 MG; Start 11/09/16 at 21:57 Acetaminophen (Tylenol Tab) 650 mg Q6H PRN PO PAIN AND OR ELEVATED TEMP; Start 11/09/16 at 22:00 Bisacodyl (Dulcolax) 5 mg DAILY PRN PO CONSTIPATION; Start 11/09/16 at 22:30 Dabigatran (PRADaxa) 75 mg BID PO Last administered on 11/14/16 08:56; Admin Dose 75 MG; Start 11/09/16 at 22:02 Diazepam (Valium) 2.5 mg Q6H PRN PO ANXIETY Last administered on 11/09/16 23: 25; Admin Dose 2.5 MG; Start 11/09/16 at 22:30 Famotidine (Pepcid) 20 mg DAILY PO Last administered on 11/14/16 08:57; Admin Dose 20 MG; Start 11/10/16 at 09:00 Folic Acid (Folic Acid) 1 mg DAILY PO Last administered on 11/14/16 08:56; Admin Dose 1 MG; Start 11/10/16 at 09:00 Trimethoprim/ Sulfamethoxazole (Bactrim (Ds)) 1 tab BID PO Last administered on 11/14/16 08:56; Admin Dose 1 TAB; Start 11/13/16 at 13:30; Stop 11/16/16 at 13:29 SONIA ROSAS MD Nov 14, 2016 13:29
[2016-11-14 14:00] VITALS: BP 120/50; RESP 20
[2016-11-14] MEDS: DONEPEZIL 5 MG TAB PO SCH (14:57)
[2016-11-14 20:00] VITALS: BP 111/57; RESP 18
[2016-11-15 02:00] VITALS: BP 117/67; RESP 18
[2016-11-15] MEDS: LEVOTHYROXINE 137 MCG TAB PO SCH (06:16)
[2016-11-15 07:41] VITALS: BP 105/54; RESP 18
[2016-11-15] MEDS: DONEPEZIL 5 MG TAB PO SCH (08:47)
[2016-11-15] MEDS: FAMOTIDINE 20 MG TAB PO SCH (08:47)
[2016-11-15] MEDS: FOLIC ACID 1 MG TAB PO SCH (08:47)
[2016-11-15] MEDS: DABIGATRAN 75 MG CAP PO SCH ×2 (08:47→21:00)
[2016-11-15] MEDS: TRIMETHOPRIM/SULFAMETHOX (DS) TAB PO SCH ×2 (08:47→20:59)
[2016-11-15] MEDS: METOPROLOL 25 MG TAB PO SCH ×2 (08:50→20:59)
--- NOTE | 2016-11-15 11:53 | CONS ---
Date/Time of Note Date/Time of Note DATE: 11/15/16 TIME: 11:52 Consult Date/Type/Reason Admit Date/Time Nov 09, 2016 at 21:22 Subjective Comfortable Objective Lungs clear abdomen soft Standby assist ambulation Vital Signs Date Time Temp Pulse Resp B/P Pulse Ox O2 Delivery O2 Flow Rate FiO2 11/15/16 07:41 98.3 76 18 105/54 97 11/13/16 08:19 Room Air Intake and Output 11/14/16 11/14/16 11/15/16 15:00 23:00 07:00 Intake Total 200 ml Balance 200 ml Results/Medications Medications Current Medications Ondansetron HCl (Zofran Tab) 4 mg Q6H PRN PO NAUSEA AND/OR VOMITING; Start at 22:00 Tramadol HCl (Ultram) 50 mg Q6H PRN PO PAIN Last administered on 11/11/16 21: 16; Admin Dose 50 MG; Start 11/09/16 at 22:00 Zolpidem Tartrate (Ambien) 5 mg HS PRN PO INSOMNIA Last administered on 22:16; Admin Dose 5 MG; Start 11/09/16 at 22:00 Metoprolol Tartrate (Lopressor) 25 mg BID PO Last administered on 11/14/16 20: 27; Admin Dose 25 MG; Start 11/09/16 at 21:57 Acetaminophen (Tylenol Tab) 650 mg Q6H PRN PO PAIN AND OR ELEVATED TEMP; Start 11/09/16 at 22:00 Bisacodyl (Dulcolax) 5 mg DAILY PRN PO CONSTIPATION; Start 11/09/16 at 22:30 Dabigatran (PRADaxa) 75 mg BID PO Last administered on 11/15/16 08:47; Admin Dose 75 MG; Start 11/09/16 at 22:02 Famotidine (Pepcid) 20 mg DAILY PO Last administered on 11/15/16 08:47; Admin Dose 20 MG; Start 11/10/16 at 09:00 Folic Acid (Folic Acid) 1 mg DAILY PO Last administered on 11/15/16 08:47; Admin Dose 1 MG; Start 11/10/16 at 09:00 Trimethoprim/ Sulfamethoxazole (Bactrim (Ds)) 1 tab BID PO Last administered on 11/15/16 08:47; Admin Dose 1 TAB; Start 11/13/16 at 13:30; Stop 11/16/16 at 13:29 Donepezil HCl (Aricept) 5 mg DAILY PO Last administered on 11/15/16 08:47; Admin Dose 5 MG; Start 11/14/16 at 14:00 Assessment/Plan Additional Assessment/Plan Rehabilitation- Toxic metabolic encephalopathy; Cardiac debility due to bradycardia and pacemaker placement. Continue rehab therapy activities, overall progressing well Cardiac- Status post pacemaker placement Hypertension. NEEL ARDON MD Nov 15, 2016 11:53
--- NOTE | 2016-11-15 13:41 | PN ---
Date/Time of Note Date/Time of Note DATE: 11/15/16 TIME: 13:38 Assessment/Plan VTE Prophylaxis VTE Prophylaxis Intervention: heparin Assessment/Plan Problems: (1) Onychomycosis Status: Chronic Comment: Lamisil pulse therapy, and podiatry consult (2) E. coli UTI Status: Acute Comment: Completing antibiotic therapy (3) Status post cardiac pacemaker procedure Status: Acute Comment: Stable post procedure (4) Acquired hypothyroidism Status: Chronic Comment: Stable on treatment (5) Organic brain syndrome (chronic) Status: Chronic Comment: Now on Aricept Subjective 24 Hr Interval Summary Free Text/Dictation Patient reports she is interested in her eventual discharge Respiratory: no complaints Cardiovascular: no complaints Gastrointestinal: no complaints Exam/Review of Systems Vital Signs Vitals Vital Signs Date Time Temp Pulse Resp B/P Pulse Ox O2 Delivery O2 Flow Rate FiO2 11/15/16 07:41 98.3 76 18 105/54 97 11/13/16 08:19 Room Air Intake and Output 11/14/16 11/14/16 11/15/16 15:00 23:00 07:00 Intake Total 200 ml Balance 200 ml Exam Constitutional: alert, oriented Respiratory: clear to auscultation, normal air movement Cardiovascular: nl pulses, regular rate and rhythm Gastrointestinal: nl liver, spleen, non-tender, soft Medications Medications Current Medications Ondansetron HCl (Zofran Tab) 4 mg Q6H PRN PO NAUSEA AND/OR VOMITING; Start at 22:00 Tramadol HCl (Ultram) 50 mg Q6H PRN PO PAIN Last administered on 11/11/16 21: 16; Admin Dose 50 MG; Start 11/09/16 at 22:00 Zolpidem Tartrate (Ambien) 5 mg HS PRN PO INSOMNIA Last administered on 22:16; Admin Dose 5 MG; Start 11/09/16 at 22:00 Metoprolol Tartrate (Lopressor) 25 mg BID PO Last administered on 11/14/16 20: 27; Admin Dose 25 MG; Start 11/09/16 at 21:57 Acetaminophen (Tylenol Tab) 650 mg Q6H PRN PO PAIN AND OR ELEVATED TEMP; Start 11/09/16 at 22:00 Bisacodyl (Dulcolax) 5 mg DAILY PRN PO CONSTIPATION; Start 11/09/16 at 22:30 Dabigatran (PRADaxa) 75 mg BID PO Last administered on 11/15/16 08:47; Admin Dose 75 MG; Start 11/09/16 at 22:02 Famotidine (Pepcid) 20 mg DAILY PO Last administered on 11/15/16 08:47; Admin Dose 20 MG; Start 11/10/16 at 09:00 Folic Acid (Folic Acid) 1 mg DAILY PO Last administered on 11/15/16 08:47; Admin Dose 1 MG; Start 11/10/16 at 09:00 Trimethoprim/ Sulfamethoxazole (Bactrim (Ds)) 1 tab BID PO Last administered on 11/15/16 08:47; Admin Dose 1 TAB; Start 11/13/16 at 13:30; Stop 11/16/16 at 13:29 Donepezil HCl (Aricept) 5 mg DAILY PO Last administered on 11/15/16 08:47; Admin Dose 5 MG; Start 11/14/16 at 14:00 SONIA ROSAS MD Nov 15, 2016 13:41
[2016-11-15] MEDS: TERBINAFINE 250 MG TAB PO SCH ×2 (15:50→23:25)
[2016-11-15 20:00] VITALS: BP 98/60; RESP 18
[2016-11-15] MEDS: ZOLPIDEM 5 MG TAB PO PRN (23:25)
[2016-11-16 02:00] VITALS: BP 113/57; RESP 18
[2016-11-16 07:31] LABS: CREATININE 1.34 mg/dl (0.44-1.00)
[2016-11-16 07:59] VITALS: BP 121/56; RESP 18
[2016-11-16] MEDS: TRIMETHOPRIM/SULFAMETHOX (DS) TAB PO SCH (08:01)
[2016-11-16] MEDS: DABIGATRAN 75 MG CAP PO SCH ×2 (08:01→20:17)
[2016-11-16] MEDS: DONEPEZIL 5 MG TAB PO SCH ×2 (08:01→09:00)
[2016-11-16] MEDS: TERBINAFINE 250 MG TAB PO SCH ×2 (08:01→20:17)
[2016-11-16] MEDS: LEVOTHYROXINE 137 MCG TAB PO SCH (08:01)
[2016-11-16] MEDS: FAMOTIDINE 20 MG TAB PO SCH (08:02)
[2016-11-16] MEDS: METOPROLOL 25 MG TAB PO SCH ×2 (08:02→20:17)
[2016-11-16] MEDS: FOLIC ACID 1 MG TAB PO SCH (08:02)
--- NOTE | 2016-11-16 08:56 | PN ---
Date/Time of Note Date/Time of Note DATE: 11/16/16 TIME: 08:53 Assessment/Plan VTE Prophylaxis VTE Prophylaxis Intervention: heparin Assessment/Plan Problems: (1) E. coli UTI Status: Acute Comment: Completing antibiotic therapy today we will repeat the UA just to make sure we fully cleared this up (2) Status post cardiac pacemaker procedure Status: Acute Comment: Stable and progressing nicely. The device appears to be functioning well. (3) Acquired hypothyroidism Status: Chronic Comment: Adequately replaced on current oral medication regimen without complication (4) Moderate aortic stenosis by prior echocardiogram Status: Chronic Comment: Noted and stable. No change in therapeutics (5) Organic brain syndrome (chronic) Status: Chronic Comment: She is tolerating the usage of the Aricept at low-dose. We did bring the dosage up to full 10 mg a day. As an outpatient Namenda can be added to this. (6) Onychomycosis Status: Chronic Comment: Complete the course of pulse therapy Subjective 24 Hr Interval Summary Free Text/Dictation Patient reports she is doing well. No offered complaints Constitutional: no complaints (No fevers chills or sweats) Respiratory: no complaints Cardiovascular: no complaints Gastrointestinal: no complaints Genitourinary: no complaints Exam/Review of Systems Vital Signs Vitals Vital Signs Date Time Temp Pulse Resp B/P Pulse Ox O2 Delivery O2 Flow Rate FiO2 11/16/16 07:59 98.4 69 18 121/56 97 11/13/16 08:19 Room Air Intake and Output 11/15/16 11/15/16 11/16/16 15:00 23:00 07:00 Intake Total 800 ml 500 ml 350 ml Balance 800 ml 500 ml 350 ml Exam Patient ambulating in hallway with a walker on her way to the gym for therapy Constitutional: alert (Oriented times person, gases at place) Neck: non-tender, supple Respiratory: clear to auscultation Cardiovascular: nl pulses, regular rate and rhythm Gastrointestinal: nl liver, spleen, non-tender, soft Results Result Diagram: 11/16/16 0631 Results 24 hrs Laboratory Tests Test 11/16/16 06:31 Blood Urea Nitrogen 17 Creatinine 1.34 H Medications Medications Current Medications Ondansetron HCl (Zofran Tab) 4 mg Q6H PRN PO NAUSEA AND/OR VOMITING; Start at 22:00 Tramadol HCl (Ultram) 50 mg Q6H PRN PO PAIN Last administered on 11/11/16 21: 16; Admin Dose 50 MG; Start 11/09/16 at 22:00 Zolpidem Tartrate (Ambien) 5 mg HS PRN PO INSOMNIA Last administered on 23:25; Admin Dose 5 MG; Start 11/09/16 at 22:00 Metoprolol Tartrate (Lopressor) 25 mg BID PO Last administered on 11/16/16 08: 02; Admin Dose 25 MG; Start 11/09/16 at 21:57 Acetaminophen (Tylenol Tab) 650 mg Q6H PRN PO PAIN AND OR ELEVATED TEMP; Start 11/09/16 at 22:00 Bisacodyl (Dulcolax) 5 mg DAILY PRN PO CONSTIPATION; Start 11/09/16 at 22:30 Dabigatran (PRADaxa) 75 mg BID PO Last administered on 11/16/16 08:01; Admin Dose 75 MG; Start 11/09/16 at 22:02 Famotidine (Pepcid) 20 mg DAILY PO Last administered on 11/16/16 08:02; Admin Dose 20 MG; Start 11/10/16 at 09:00 Folic Acid (Folic Acid) 1 mg DAILY PO Last administered on 11/16/16 08:02; Admin Dose 1 MG; Start 11/10/16 at 09:00 Trimethoprim/ Sulfamethoxazole (Bactrim (Ds)) 1 tab BID PO Last administered on 11/16/16 08:01; Admin Dose 1 TAB; Start 11/13/16 at 13:30; Stop 11/16/16 at 13:29 Terbinafine HCl (Lamisil) 250 mg BID PO Last administered on 11/16/16 08:01; Admin Dose 250 MG; Start 11/15/16 at 15:00; Stop 11/22/16 at 14:59 Donepezil HCl (Aricept) 10 mg DAILY PO ; Start 11/16/16 at 09:00; Status SONIA LAWSON MD Nov 16, 2016 08:55
--- NOTE | 2016-11-16 12:07 | CONS ---
Date/Time of Note Date/Time of Note DATE: 11/16/16 TIME: 11:55 Consultation Date/Type/Reason Admit Date/Time Nov 09, 2016 at 21:22 Date of Consultation: Nov 16, 2016 Reason for Consultation Podiatry Hx of Present Illness Patient I am seeing for the first time upon request from Dr. Ramirez. Patient with encephalopathy being discharged today. Patient with podiatric complaint of elongated and friable toe nails.1-5 6-10. No Musculoskeletal abnormalities noted. Neurologic intact for superficial and deep sensory bilateral. Vascular + 2/4 for dorsalis pedis and 2/4 for posterior tibial pulses bilaterally. Patient has a yellow friable an toe nails1-5 6- 10 bilaterally. There is ulcerations noted. Onychomycosis 1 through 5 and 6 through 10 bilaterally. Plan : Patient education is done today we recommended some homeopathic over-the- counter remedies for the patient because antifungals prescriptions are too expensive for her. Also we have encouraged her to have podiatric care on a more regular basis. RTC 8 weeks. Constitutional: no complaints (No fevers chills or sweats) Eyes: no complaints ENT: no complaints Respiratory: no complaints Cardiovascular: no complaints Gastrointestinal: no complaints Genitourinary: no complaints Musculoskeletal: no complaints Skin: other (Friable and elongated toe nails 1-5 6-10 bilat.) Neurologic: no complaints (Sports no evidence please see the exam) Psychological: confusion, nl mood/affect, no complaints Past Surgical History Past Surgical Hx: other Social History Alcohol Use: none Smoking Status: Former smoker Drug Use: none Exam/Review of Systems Vital Signs Vitals Vital Signs Date Time Temp Pulse Resp B/P Pulse Ox O2 Delivery O2 Flow Rate FiO2 11/16/16 07:59 98.4 69 18 121/56 97 11/13/16 08:19 Room Air Intake and Output 11/15/16 11/15/16 11/16/16 15:00 23:00 07:00 Intake Total 800 ml 500 ml 350 ml Balance 800 ml 500 ml 350 ml Results Result Diagram: 11/16/16 0631 Results 24 hrs Laboratory Tests Test 11/16/16 06:31 Blood Urea Nitrogen 17 Creatinine 1.34 H Medications Medications Current Medications Ondansetron HCl (Zofran Tab) 4 mg Q6H PRN PO NAUSEA AND/OR VOMITING; Start at 22:00 Tramadol HCl (Ultram) 50 mg Q6H PRN PO PAIN Last administered on 11/11/16 21: 16; Admin Dose 50 MG; Start 11/09/16 at 22:00 Zolpidem Tartrate (Ambien) 5 mg HS PRN PO INSOMNIA Last administered on 23:25; Admin Dose 5 MG; Start 11/09/16 at 22:00 Metoprolol Tartrate (Lopressor) 25 mg BID PO Last administered on 11/16/16 08: 02; Admin Dose 25 MG; Start 11/09/16 at 21:57 Acetaminophen (Tylenol Tab) 650 mg Q6H PRN PO PAIN AND OR ELEVATED TEMP; Start 11/09/16 at 22:00 Bisacodyl (Dulcolax) 5 mg DAILY PRN PO CONSTIPATION; Start 11/09/16 at 22:30 Dabigatran (PRADaxa) 75 mg BID PO Last administered on 11/16/16 08:01; Admin Dose 75 MG; Start 11/09/16 at 22:02 Famotidine (Pepcid) 20 mg DAILY PO Last administered on 11/16/16 08:02; Admin Dose 20 MG; Start 11/10/16 at 09:00 Folic Acid (Folic Acid) 1 mg DAILY PO Last administered on 11/16/16 08:02; Admin Dose 1 MG; Start 11/10/16 at 09:00 Trimethoprim/ Sulfamethoxazole (Bactrim (Ds)) 1 tab BID PO Last administered on 11/16/16 08:01; Admin Dose 1 TAB; Start 11/13/16 at 13:30; Stop 11/16/16 at 13:29 Terbinafine HCl (Lamisil) 250 mg BID PO Last administered on 11/16/16 08:01; Admin Dose 250 MG; Start 11/15/16 at 15:00; Stop 11/22/16 at 14:59 Donepezil HCl (Aricept) 10 mg DAILY PO ; Start 11/16/16 at 09:00 FRANK GUILLERMO DPM Nov 16, 2016 12:06
--- NOTE | 2016-11-16 12:19 | CONS ---
Date/Time of Note Date/Time of Note DATE: 11/16/16 TIME: 12:18 Consult Date/Type/Reason Admit Date/Time Nov 09, 2016 at 21:22 Subjective Motivated Objective Lungs clear abdomen soft Standby assist ambulation 200 feet Vital Signs Date Time Temp Pulse Resp B/P Pulse Ox O2 Delivery O2 Flow Rate FiO2 11/16/16 07:59 98.4 69 18 121/56 97 11/13/16 08:19 Room Air Intake and Output 11/15/16 11/15/16 11/16/16 14:59 22:59 06:59 Intake Total 800 ml 500 ml 350 ml Balance 800 ml 500 ml 350 ml Results/Medications Result Diagram: 11/16/16630 Results 24 hrs Laboratory Tests Test 11/16/16 06:31 Blood Urea Nitrogen 17 Creatinine 1.34 H Medications Current Medications Ondansetron HCl (Zofran Tab) 4 mg Q6H PRN PO NAUSEA AND/OR VOMITING; Start at 22:00 Tramadol HCl (Ultram) 50 mg Q6H PRN PO PAIN Last administered on 11/11/16 21: 16; Admin Dose 50 MG; Start 11/09/16 at 22:00 Zolpidem Tartrate (Ambien) 5 mg HS PRN PO INSOMNIA Last administered on 23:25; Admin Dose 5 MG; Start 11/09/16 at 22:00 Metoprolol Tartrate (Lopressor) 25 mg BID PO Last administered on 11/16/16 08: 02; Admin Dose 25 MG; Start 11/09/16 at 21:57 Acetaminophen (Tylenol Tab) 650 mg Q6H PRN PO PAIN AND OR ELEVATED TEMP; Start 11/09/16 at 22:00 Bisacodyl (Dulcolax) 5 mg DAILY PRN PO CONSTIPATION; Start 11/09/16 at 22:30 Dabigatran (PRADaxa) 75 mg BID PO Last administered on 11/16/16 08:01; Admin Dose 75 MG; Start 11/09/16 at 22:02 Famotidine (Pepcid) 20 mg DAILY PO Last administered on 11/16/16 08:02; Admin Dose 20 MG; Start 11/10/16 at 09:00 Folic Acid (Folic Acid) 1 mg DAILY PO Last administered on 11/16/16 08:02; Admin Dose 1 MG; Start 11/10/16 at 09:00 Trimethoprim/ Sulfamethoxazole (Bactrim (Ds)) 1 tab BID PO Last administered on 11/16/16 08:01; Admin Dose 1 TAB; Start 11/13/16 at 13:30; Stop 11/16/16 at 13:29 Terbinafine HCl (Lamisil) 250 mg BID PO Last administered on 11/16/16 08:01; Admin Dose 250 MG; Start 11/15/16 at 15:00; Stop 11/22/16 at 14:59 Donepezil HCl (Aricept) 10 mg DAILY PO ; Start 11/16/16 at 09:00 Assessment/Plan Additional Assessment/Plan Rehabilitation- Toxic metabolic encephalopathy; Cardiac debility due to bradycardia and pacemaker placement. Continue rehab therapy activities, overall progressing well. Anticipate discharge tomorrow Cardiac- Status post pacemaker placement Hypertension. NEEL ARDON MD Nov 16, 2016 12:18
[2016-11-16 15:22] LABS: ADD UMIC YES; UR ASCORBIC ACID 40 mg/dL (NEGATIVE); UR BACTERIA FEW /HPF (NONE SEEN); UR BILIRUBIN (Dip) NEGATIVE (NEGATIVE); UR BLOOD (Dip) NEGATIVE (NEGATIVE); UR CLARITY CLEAR (CLEAR); UR COLOR YELLOW (YELLOW); UR GLUCOSE (Dip) NEGATIVE (NEGATIVE); UR KETONES (Dip) NEGATIVE (NEGATIVE); UR LEUKOCYTE ESTERASE (Dip) TRACE Leu/ul (NEGATIVE); UR NITRITE (Dip) NEGATIVE (NEGATIVE); UR RBC 3 /HPF (0-5); UR SPECIFIC GRAVITY (Dip) 1.024 (1.003-1.030); UR TOTAL PROTEIN (Dip) NEGATIVE (NEGATIVE); UR UROBILINOGEN (Dip) 2+ mg/dL (NEGATIVE)
[2016-11-16 20:00] VITALS: BP 108/58; RESP 18
[2016-11-16] MEDS: ZOLPIDEM 5 MG TAB PO PRN (20:17)
[2016-11-17 02:00] VITALS: BP 118/63; RESP 18
--- NOTE | 2016-11-17 05:20 | CONS ---
DATE OF ADMISSION: 11/09/2016 DATE OF CONSULTATION: 11/16/2016 TYPE OF CONSULTATION: Psychological. CONSULTING PSYCHOLOGIST: Dex Pierson, PhD. REASON FOR CONSULTATION: This consultation was requested by Dr. Ashley Rodgers in order to evaluate the cognitive and emotional functions of this patient related to her present medical condition. HISTORY OF PRESENT ILLNESS: The patient is an 86-year-old female. The patient has a history of CHF and arterial fibrillation. The patient was admitted to [facility] with symptomatic bradycardia and hypotension. The patient was cleared medically, and then transferred to the acute rehabilitation unit for acute multidisciplinary rehabilitation. The patient did have altered mental status that was presumed secondary to encephalopathy. Patient's mobility and cognition were impaired compared to her baseline. The patient is concerned about her present medical condition. The patient is frustrated and depressed. The patient is still confused. FAMILY/SOCIAL HISTORY: The patient was not exactly clear about her overall family history but did say that she lives in a home in [place] with her nephew. Patient reports that she does have 5 children who live in the area. The patient does want to return home after discharge. MEDICATIONS: The patient was on Valium p.r.n. when she came into the hospital. SUBSTANCE USE: The patient reports that she does not smoke. The patient reports that she does not use alcohol or other drugs. MENTAL STATUS EXAMINATION: APPEARANCE: The patient was seen sitting on the side of her bed. She is of average height and weight. The patient is right handed. BEHAVIOR: The patient was cooperative during the consultation. The patient did attempt to answer all questions presented to her by the interviewer. MOOD AND AFFECT: The patient's mood appears to be depressed. Affect does appear to be slightly anxious. PERCEPTION: Patient reports no hallucinations or delusions. The patient was alert to person, place, situation, and time. MEMORY AND COGNITION: The patient's memory and cognition appear to be impaired. She did have difficulty recalling recent and remote events. The patient was able to say the name of the hospital, the month and the year. The patient was unable to say who the President of [facility] is, the governor of the formerly [facility], or the mayor of the [facility]. The patient could not spell world backwards. The patient could not do any serial 7 subtractions from 100. Overall, the patient's cognition appears to be impaired and is likely from some form of a dementing process. INTELLIGENCE: Appears to fall in the average range when she was functioning well. INSIGHT: Poor. JUDGMENT: Poor. THOUGHT CONTENT: The patient is concerned about her present medical condition. The patient does want to recover and return to her previous level of functioning and return home. DISCUSSION: The patient could have possibly benefited from some cognitive/behavioral psychotherapy while she is on the unit. The patient is being discharged tomorrow. The evaluation was setup to assess her overall level of functioning prior to leaving. The patient has done well in the program. DIAGNOSTIC IMPRESSION: 1. 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 2. 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 Thank you very much, Dr. Aslhey Rodgers, for referring this individual. Please do not hesitate to call if you have with any questions. Dictated By: Dex Pierson, PHD /patel/jad /Document#: [id number] SCOTT
[2016-11-17] MEDS: LEVOTHYROXINE 137 MCG TAB PO SCH (06:06)
[2016-11-17 07:30] VITALS: BP 138/61; RESP 20
[2016-11-17 07:55] LABS: CALCIUM 9.6 mg/dl (8.4-10.2); CREATININE 1.24 mg/dl (0.44-1.00); POTASSIUM 4.9 mmol/L (3.5-5.1)
[2016-11-17] MEDS: TERBINAFINE 250 MG TAB PO SCH (09:03)
[2016-11-17] MEDS: DABIGATRAN 75 MG CAP PO SCH (09:03)
[2016-11-17] MEDS: FAMOTIDINE 20 MG TAB PO SCH (09:04)
[2016-11-17] MEDS: FOLIC ACID 1 MG TAB PO SCH (09:04)
[2016-11-17] MEDS: DONEPEZIL 5 MG TAB PO SCH (09:04)
[2016-11-17] MEDS: METOPROLOL 25 MG TAB PO SCH (09:04)
--- NOTE | 2016-11-17 12:39 | DS ---
Date/Time of Note Date/Time of Note DATE: 11/17/16 TIME: 12:37 Discharge Summary Admission/Discharge Info Admit Date/Time Nov 09, 2016 at 21:22 Discharge Date/Time Discharge Diagnosis 1.Toxic metabolic encephalopathy. 2 Cardiac debility due to bradycardia and pacemaker placement. 3. CHF. 4. Status post pacemaker placement. 5. Hypertension. 6. Improvement in self-care, mobility and cognition. Patient Condition: Good Hx of Present Illness 86-year-old female transferred from the inpatient service the acute rehabilitation service. She had been under fair conditions. She developed complete heart block requiring admission. At that time she had heart failure diastolic dysfunction acute renal insufficiency and urinary tract infection. She underwent placement of a single-lead VVI pacemaker successfully is now transferred to acute rehab for rehabilitative care. Hospital Course Patient was admitted for conference of interdisciplinary acute rehab and made excellent functional gains during the stay. Patient progressed from an initial moderate assist with self-care mobility tasks and progressed to the point of supervised standby assist for all areas of self-care and mobility including ambulating over 200 feet with use of a front wheel walker. Patient is being discharged home with the recommendation of home health physical therapy and Occupational Therapy follow-up the discharge medications are per the medication reconciliation sheet Home Meds Active Scripts Metoprolol Tartrate* (Lopressor*) 25 Mg Tab, 25 MG PO BID for 30 Days, TAB Prov:SONIA ROSAS MD 11/09/16 Reported Medications Venlafaxine Hcl* (Venlafaxine Hcl*) 75 Mg Tablet, 150 MG PO DAILY, TAB 11/01/16 Duloxetine Hcl* (Duloxetine Hcl*) 60 Mg Capsule.dr, 60 MG PO DAILY, #30 CAP 11/01/16 Tramadol Hcl* (Ultram*) 50 Mg Tablet, 50 MG PO Q6H Y for PAIN, TAB 11/01/16 Pravastatin Sodium* (Pravastatin Sodium*) 40 Mg Tablet, 40 MG PO HS, TAB 11/01/16 Spironolactone* (Aldactone*) 5 Mg/Ml (COMPOUNDED) Susp, 12.5 MG PO DAILY for 30 Days, ML (COMPOUNDED) 11/01/16 Dabigatran Etexilate Mesylate* (Pradaxa*) 150 Mg Capsule, 150 MG PO BID, CAP 11/01/16 Losartan Potassium* (Losartan Potassium*) 25 Mg Tablet, 25 MG PO DAILY, TAB 11/01/16 Levothyroxine Sodium* (Levothyroxine Sodium*) 137 Mcg Tablet, 137 MCG PO BEFORE BREAKFAST, #30 TAB 11/01/16 Amiodarone Hcl* (Amiodarone Hcl*) 100 Mg Tablet, 100 MG PO DAILY, #30 TAB 11/01/16 Primary Care Provider Reese Murrieta MD Pending Labs Laboratory Tests Test 11/16/16 14:00 11/17/16 06:34 Urine Color YELLOW (YELLOW) Urine Clarity CLEAR (CLEAR) Urine pH 6.0 (5.0-9.0) Urine Specific [place] 1.024 (1.003-1.030) Urine Ketones NEGATIVEmg/dL (NEGATIVE) Urine Nitrite NEGATIVEmg/dL (NEGATIVE) Urine Bilirubin NEGATIVEmg/dL (NEGATIVE) Urine Urobilinogen 2+mg/dL (NEGATIVE) Urine Leukocyte Esterase TRACELeu/ul (NEGATIVE) Urine Microscopic RBC 3/HPF (0-5) Urine Microscopic WBC 3/HPF (0-5) Urine Bacteria FEW/HPF (NONE SEEN) Urine Hemoglobin NEGATIVEmg/dL (NEGATIVE) Urine Glucose NEGATIVEmg/dL (NEGATIVE) Urine Total Protein NEGATIVEmg/dl (NEGATIVE) Sodium Level 138mmol/L (135-144) Potassium Level 4.9mmol/L (3.5-5.1) Chloride Level 107mmol/L (97-110) Carbon Dioxide Level 23mmol/L (21-31) Anion Gap 13 (8-16) Blood Urea Nitrogen 20mg/dl (7-20) Creatinine 1.24mg/dl (0.44-1.00) Glucose Level 92mg/dl (70-220) Calcium Level 9.6mg/dl (8.4-10.2) Microbiology Date/Time Source Procedure Growth Status 11/16/16 14:00 Clean Catch Urine Urine Culture - Preliminary NO GROWTH AFTER 24 HOURS Resulted NEEL ARDON MD Nov 17, 2016 12:38
[2016-11-17] MEDS: traMADol 50 MG TAB PO PRN (13:04)
--- NOTE | 2016-11-17 13:27 | PN ---
Date/Time of Note Date/Time of Note DATE: 11/17/16 TIME: 13:25 Assessment/Plan VTE Prophylaxis VTE Prophylaxis Intervention: ambulation Assessment/Plan Problems: (1) Status post cardiac pacemaker procedure Status: Acute Comment: She is successfully post pacemaker placement without complication. At this time she is rehabilitated to the point that she is stable for discharge home. 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 coli UTI Status: Acute Comment: Adequately treated and corrected (3) Acquired hypothyroidism Status: Chronic Comment: Stable on replacement therapy, continue same (4) Diastolic dysfunction Status: Chronic Comment: Stable on beta-blockade which is also giving adequate rate control. 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 An outpatient will add in Namenda Subjective 24 Hr Interval Summary Free Text/Dictation Patient continues to be quite animated without complaints Exam/Review of Systems Vital Signs Vitals Vital Signs Date Time Temp Pulse Resp B/P Pulse Ox O2 Delivery O2 Flow Rate FiO2 11/17/16 07:30 97.8 68 20 138/61 100 11/13/16 08:19 Room Air Intake and Output 11/16/16 11/16/16 11/17/16 15:00 23:00 07:00 Intake Total 800 ml 400 ml 500 ml Balance 800 ml 400 ml 500 ml Exam Constitutional: alert (Oriented times person) Respiratory: clear to auscultation, normal air movement Cardiovascular: nl pulses, regular rate and rhythm Results Result Diagram: 11/17/16 0634 Results 24 hrs Laboratory Tests Test 11/16/16 14:00 11/17/16 06:34 Urine Color YELLOW Urine Clarity CLEAR Urine pH 6.0 Urine Specific [place] 1.024 Urine Ketones NEGATIVE Urine Nitrite NEGATIVE Urine Bilirubin NEGATIVE Urine Urobilinogen 2+ H Urine Leukocyte Esterase TRACE A Urine Microscopic RBC 3 Urine Microscopic WBC 3 Urine Bacteria FEW A Urine Hemoglobin NEGATIVE Urine Glucose NEGATIVE Urine Total Protein NEGATIVE Sodium Level 138 Potassium Level 4.9 Chloride Level 107 Carbon Dioxide Level 23 Anion Gap 13 Blood Urea Nitrogen 20 Creatinine 1.24 H Glucose Level 92 Calcium Level 9.6 Medications Medications Current Medications Ondansetron HCl (Zofran Tab) 4 mg Q6H PRN PO NAUSEA AND/OR VOMITING; Start at 22:00 Tramadol HCl (Ultram) 50 mg Q6H PRN PO PAIN Last administered on 11/17/16 13: 04; Admin Dose 50 MG; Start 11/09/16 at 22:00 Zolpidem Tartrate (Ambien) 5 mg HS PRN PO INSOMNIA Last administered on 20:17; Admin Dose 5 MG; Start 11/09/16 at 22:00 Metoprolol Tartrate (Lopressor) 25 mg BID PO Last administered on 11/17/16 09: 04; Admin Dose 25 MG; Start 11/09/16 at 21:57 Acetaminophen (Tylenol Tab) 650 mg Q6H PRN PO PAIN AND OR ELEVATED TEMP Last administered on 11/17/16 13:04; Admin Dose 650 MG; Start 11/09/16 at 22:00 Bisacodyl (Dulcolax) 5 mg DAILY PRN PO CONSTIPATION; Start 11/09/16 at 22:30 Dabigatran (PRADaxa) 75 mg BID PO Last administered on 11/17/16 09:03; Admin Dose 75 MG; Start 11/09/16 at 22:02 Famotidine (Pepcid) 20 mg DAILY PO Last administered on 11/17/16 09:04; Admin Dose 20 MG; Start 11/10/16 at 09:00 Folic Acid (Folic Acid) 1 mg DAILY PO Last administered on 11/17/16 09:04; Admin Dose 1 MG; Start 11/10/16 at 09:00 Terbinafine HCl (Lamisil) 250 mg BID PO Last administered on 11/17/16 09:03; Admin Dose 250 MG; Start 11/15/16 at 15:00; Stop 11/22/16 at 14:59 Donepezil HCl (Aricept) 10 mg DAILY PO Last administered on 11/17/16 09:04; Admin Dose 10 MG; Start 11/16/16 at 09:00 Copies To: CC: BARBARA COATS MD, JOSHUA A MD Nov 17, 2016 13:27
== END 2016-11-17 13:00 | disposition home health service (06) | DRG 945 ==
LOC: VRC 21:22
PROVIDERS: ADMIT Physical Medicine & Rehabilitation; ATTEND Internal Medicine
PROC: F07Z9FZ Gait Training/Functional Ambulation Treatment using Assistive, Adaptive, Supportive or Protective Equipment (ICD-10-PCS; principal; 2016-11-09)
PROC: F07Z5FZ Bed Mobility Treatment using Assistive, Adaptive, Supportive or Protective Equipment (ICD-10-PCS; 2016-11-09)
PROC: F07Z8FZ Transfer Training Treatment using Assistive, Adaptive, Supportive or Protective Equipment (ICD-10-PCS; 2016-11-09)
PROC: F08Z2FZ Grooming/Personal Hygiene Treatment using Assistive, Adaptive, Supportive or Protective Equipment (ICD-10-PCS; 2016-11-09)
PROC: F08Z0FZ Bathing/Showering Techniques Treatment using Assistive, Adaptive, Supportive or Protective Equipment (ICD-10-PCS; 2016-11-09)
PROC: F08Z1FZ Dressing Techniques Treatment using Assistive, Adaptive, Supportive or Protective Equipment (ICD-10-PCS; 2016-11-09)
DX: R53.81 Other malaise (principal); G92 Toxic encephalopathy; N17.9 Acute kidney failure, unspecified; F03.90 Unspecified dementia, unspecified severity, without behavioral disturbance, psychotic disturbance, mood disturbance, and anxiety; I48.91 Unspecified atrial fibrillation; N39.0 Urinary tract infection, site not specified; I11.0 Hypertensive heart disease with heart failure; B35.1 Tinea unguium; I50.32 Chronic diastolic (congestive) heart failure; I35.0 Nonrheumatic aortic (valve) stenosis; E03.9 Hypothyroidism, unspecified; F06.31 Mood disorder due to known physiological condition with depressive features; M79.7 Fibromyalgia; Z95.0 Presence of cardiac pacemaker; M81.0 Age-related osteoporosis without current pathological fracture; Z87.891 Personal history of nicotine dependence; B96.20 Unspecified Escherichia coli [E. coli] as the cause of diseases classified elsewhere; M19.91 Primary osteoarthritis, unspecified site
CPT/HCPCS: 80048; 80053; 81001; 82565; 82962; 84520; 85025; 87081; 87086; 92507; 92523; 92610; 97110; 97112; 97116; 97150; 97163; 97167; 97530; 97535

== ENCOUNTER → 2017-09-07 | Outpatient (CLI) | END | disposition home or self-care (01) ==

== ENCOUNTER 2018-10-20 09:24 | Emergency (ER) | payer MEDICARE, OTHER ==
[~2018-10-20] VITALS: Ht 162.6 cm; Wt 71.0 kg
[~2018-10-20 09:24] MED LIST changes: -ALDS; -AMIO200T2 PO; -CAR120SR PO; -DIGO125T6 PO; -FURO-109 PO; -FURO40TA4 PO; -LEVO500V2 PO; +LOSA25TA12 PO; -LOSA25TA5 PO; -METO100T PO; -METO100T13 PO; -TRAM-40 PO; -TRAM100T2 PO; +TRAM50TA PO; -VENL150C94 PO; -[UNRECOGNIZED DRUG - CODE] PO
[2018-10-20 09:27] VITALS: BP 119/59; PULSE 76; RESP 18; Ht 162.6 cm; Wt 71.0 kg
--- NOTE | 2018-10-20 09:49 | ERD ---
ER Documentation Chief Complaint Chief Complaint fell hit head 2 days ago,on blood thinner sent by pmd HPI 87-year-old woman who uses Pradaxa daily for chronic atrial fibrillation brought in by daughter after mechanical fall 2 days ago. She struck the back of her head and low back when she fell backwards. She has been able to ambulate since the fall and there was no loss of consciousness as episode was witnessed. Daughter states patient has had insomnia lately. Patient denies fevers or chills, no chest pain or shortness of breath, no vomiting or diarrhea, no gait ataxia. ROS All systems reviewed and are negative except as per history of present illness. Medications Home Meds Reported Medications Acetaminophen* (Tylenol*) 325 Mg Tablet, 650 MG PO Q8H PRN for MILD PAIN LEVEL 1-3, TAB 10/20/18 Tramadol Hcl* (Ultram*) 50 Mg Tablet, 100 MG PO Q8H PRN for PAIN, TAB 10/20/18 Terbinafine Hcl* (Terbinafine Hcl*) 250 Mg Tablet, 250 MG PO DIRECTED, TAB 10/20/18 Levothyroxine Sodium* (Levothyroxine Sodium*) 137 Mcg Tablet, 137 MCG PO BEFORE BREAKFAST, #30 TAB PATIENT TAKE 1/2 TAB-Q7D AND ALL OTHER DAYS 1 TAB-DAILY 10/20/18 Spironolactone* (Aldactone*) 25 Mg Tablet, 12.5 MG PO DAILY, #30 TAB 10/20/18 Pravastatin Sodium* (Pravastatin Sodium*) 40 Mg Tablet, 40 MG PO HS, TAB 10/20/18 Dabigatran Etexilate Mesylate* (Pradaxa*) 150 Mg Capsule, 150 MG PO BID, CAP 10/20/18 Famotidine* (Famotidine*) 20 Mg Tablet, 20 MG PO DAILY, #30 TAB 10/20/18 Metoprolol Succinate* (Toprol XL*) 100 Mg Tab.sr.24h, 100 MG PO DAILY, #30 TAB 10/20/18 Bimatoprost* (Lumigan*) 0.01%-2.5 Ml Opht Drops, 1 DROP BOTH EYES HS, EA 10/20/18 Losartan Potassium* (Losartan Potassium*) 25 Mg Tablet, 25 MG PO DAILY, TAB 10/20/18 Furosemide* (Furosemide*) 40 Mg Tablet, 40 MG PO DAILY, TAB 10/20/18 Furosemide* (Furosemide*) 20 Mg Tablet, 20 MG PO DAILY, #60 TAB 10/20/18 Folic Acid* (Folic Acid*) 0.8 Mg Tablet, 0.8 MG PO DAILY, TAB 10/20/18 Duloxetine Hcl* (Duloxetine Hcl*) 60 Mg Capsule.dr, 60 MG PO DAILY, #30 CAP 10/20/18 Donepezil* (Donepezil*) 10 Mg Tablet, 10 MG PO DAILY, #30 TAB 10/20/18 Discontinued Reported Medications Venlafaxine Hcl* (Venlafaxine Hcl*) 75 Mg Tablet, 150 MG PO DAILY, TAB 11/01/16 Duloxetine Hcl* (Duloxetine Hcl*) 60 Mg Capsule.dr, 60 MG PO DAILY, #30 CAP 11/01/16 Tramadol Hcl* (Ultram*) 50 Mg Tablet, 50 MG PO Q6H PRN for PAIN, TAB 11/01/16 Pravastatin Sodium* (Pravastatin Sodium*) 40 Mg Tablet, 40 MG PO HS, TAB 11/01/16 Spironolactone* (Aldactone*) 5 Mg/Ml (COMPOUNDED) Susp, 12.5 MG PO DAILY for 30 Days, ML (COMPOUNDED) 11/01/16 Dabigatran Etexilate Mesylate* (Pradaxa*) 150 Mg Capsule, 150 MG PO BID, CAP 11/01/16 Losartan Potassium* (Losartan Potassium*) 25 Mg Tablet, 25 MG PO DAILY, TAB 11/01/16 Levothyroxine Sodium* (Levothyroxine Sodium*) 137 Mcg Tablet, 137 MCG PO BEFORE BREAKFAST, #30 TAB 11/01/16 Amiodarone Hcl* (Amiodarone Hcl*) 100 Mg Tablet, 100 MG PO DAILY, #30 TAB 11/01/16 Discontinued Scripts Metoprolol Tartrate* (Lopressor*) 25 Mg Tab, 25 MG PO BID for 30 Days, TAB Prov:SONIA ROSAS MD 11/09/16 Allergies Allergies: Coded Allergies: No Known Allergies (Verified Allergy, Unknown, 10/20/18) PMhx/Soc Chronic peripheral edema, CHF, fibromyalgia, arthritis, hypothyroidism, atrial fibrillation, dementia, hyperlipidemia, status post hysterectomy, permanent pacemaker due to bradycardia, dementia History of Surgery: Yes (hysterectomy, thyroidectomy) Anesthesia Reaction: No Hx Neurological Disorder: Yes (Episodes of confusion / Delirium ) Hx Respiratory Disorders: Yes Hx Cardiac Disorders: Yes (CHF, A.fib, Heart Block, Bradycardia, Hx of Ca rdioversion) Hx Psychiatric Problems: No Hx Miscellaneous Medical Probl: Yes (CHF, afib (cardioverted)) Hx Alcohol Use: Yes (Wine, 1-2 x per week) Hx Substance Use: No Hx Tobacco Use: Yes FmHx Family History: No diabetes Physical Exam Vitals Vital Signs Date Temp Pulse Resp B/P (MAP) Pulse Ox O2 O2 Flow FiO2 Time Delivery Rate 10/20/18 97.6 76 18 119/59 97 09:27 (79) Physical Exam Const: No acute distress, otherwise well-developed well-nourished, appears dehydrated, afebrile HEENT: Normocephalic atraumatic, no cervical spine tenderness or deformity, no obvious hematomas or contusions to the scalp or head Resp: Clear to auscultation bilaterally Cardio: Regular rate and rhythm, no murmurs Skin: Healing laceration to the right medial antecubital fossa without purulent discharge. No hematomas or ecchymosis noted Back: No midline or flank tenderness Ext: No cyanosis, or edema, calves symmetrical, distal pulses equal bilateral Neur: Awake and alert x 2, no focal deficits or facial asymmetry, no gait ataxia Psych: Normal Mood and Affect Result Diagram: 10/20/18 1023 10/20/18 1023 Results 24 hrs Laboratory Tests Test 10/20/18 10:23 10/20/18 10:30 White Blood Count 5.4 10^3/ul Red Blood Count 2.96 10^6/ul Hemoglobin 9.9 g/dl Hematocrit 31.1 % Mean Corpuscular Volume 105.1 fl Mean Corpuscular Hemoglobin 33.4 pg Mean Corpuscular Hemoglobin Concent 31.8 g/dl Red Cell Distribution Width 14.2 % Platelet Count 156 10^3/UL Mean Platelet Volume 9.9 fl Immature Granulocytes % 0.200 % Neutrophils % 62.6 % Lymphocytes % 22.0 % Monocytes % 12.6 % Eosinophils % 1.7 % Basophils % 0.9 % Nucleated Red Blood Cells % 0.0 /100WBC Immature Granulocytes # 0.010 10^3/ul Neutrophils # 3.4 10^3/ul Lymphocytes # 1.2 10^3/ul Monocytes # 0.7 10^3/ul Eosinophils # 0.1 10^3/ul Basophils # 0.1 10^3/ul Nucleated Red Blood Cells # 0.0 10^3/ul Prothrombin Time 22.8 Sec Prothrombin Time Ratio 1.8 INR International Normalized Ratio 2.00 Activated Partial Thromboplast Time 77.4 Sec Sodium Level 137 mmol/L Potassium Level 4.6 mmol/L Chloride Level 104 mmol/L Carbon Dioxide Level 25 mmol/L Anion Gap 8 Blood Urea Nitrogen 48 mg/dl Creatinine 1.73 mg/dl Est Glomerular Filtrat Rate mL/min mL/min Glucose Level 105 mg/dl Calcium Level 9.6 mg/dl Total Bilirubin 0.7 mg/dl Direct Bilirubin 0.00 mg/dl Indirect Bilirubin 0.7 mg/dl Aspartate Amino Transf (AST/SGOT) 41 IU/L Alanine Aminotransferase (ALT/SGPT) 24 IU/L Alkaline Phosphatase 94 IU/L Total Protein 7.8 g/dl Albumin 4.1 g/dl Globulin 3.70 g/dl Albumin/Globulin Ratio 1.10 Lipase 180 U/L Urine Color YELLOW Urine Clarity CLEAR Urine pH 6.0 Urine Specific [place] 1.008 Urine Ketones NEGATIVE mg/dL Urine Nitrite NEGATIVE mg/dL Urine Bilirubin NEGATIVE mg/dL Urine Urobilinogen NEGATIVE mg/dL Urine Leukocyte Esterase NEGATIVE Parul/ul Urine Hemoglobin NEGATIVE mg/dL Urine Glucose NEGATIVE mg/dL Urine Total Protein NEGATIVE mg/dl Current Medications Medications Dose Sig/Raymundo Start Time Status Last (Trade) Ordered Route PRN Stop Time Admin Dose Reason Admin Sodium 1,000 ml @ Q1H STAT 10/20/18 DC 10/20/18 Chloride 1,000 mls/hr IV 10:10 10:30 10/20/18 11:09 Ketorolac 15 mg ONCE STAT 10/20/18 DC 10/20/18 Tromethamine IV 10:10 10:35 (Toradol) 10/20/18 10:12 Procedures/MDM IV line was established patient was placed on manager valuation rhythm strip revealed a sinus rhythm at about 80 bpm with upright P and T waves. Patient was afebrile I administered 1 L normal saline IV and Toradol 15mg IV. CT scan of the brain was negative for acute bleed mass or shift One AP view of the chest performed, read by me reveals no acute infiltrates, normal mediastinum, sharp costophrenic and cardiac borders, no air under the diaphragm. Otherwise unremarkable chest x-ray. X-ray LS-Spine 3V Interpreted by me: Bones: No fracture, or lytic lesions Joints: No dislocation Foreign body: None X-ray Pelvis 1V Interpreted by me: Bones: No fracture Joints: No dislocation Foreign body: None CBC revealed mild anemia, electrolytes revealed dehydration with a BUN/creatinine of 48/1.7, liver function tests were normal, troponin negative, urinalysis negative for infection. Differential diagnoses considered, included but not limited to acute coronary syndrome, pulmonary embolism, aortic dissection, abdominal aortic aneurysm, sepsis, stroke, meningitis, encephalitis, pneumonia, appendicitis, cholecystitis, bowel obstruction, pyelonephritis, nephrolithiasis, cystitis, as well as metabolic, hematologic, and electrolyte abnormalities. As well as ab scess, cellulitis, fractures, and dislocations. Patient feels much better at this time, and vital signs are normal, symptoms have improved. I did give strict instructions to return to the ED if symptoms continue or worsen, patient will otherwise follow-up with primary care physician. Patient understood instructions and agreed to plan. Disclaimer: Inadvertent spelling and grammatical errors are likely due to EHR/dictation software use and do not reflect on the overall quality of patient care. Also, please note that the electronic time recorded on this note does not necessarily reflect the actual time of the patient encounter. Departure Diagnosis: Primary Impression: Lumbar back sprain Encounter type: initial encounter Qualified Codes: S33.5XXA - Sprain of ligaments of lumbar spine, initial encounter Additional Impressions: Dementia Dementia type: unspecified type Dementia behavioral disturbance: without behavioral disturbance Qualified Codes: F03.90 - Unspecified dementia without behavioral disturbance Insomnia Insomnia type: primary Qualified Codes: F51.01 - Primary insomnia Acute dehydration Ruled Out: Fall Condition: Good MAKEDA BUCKNER MD Oct 20, 2018 09:49
[2018-10-20] MEDS ORDERED: SOD CHLORIDE 0.9% 1,000 ML IV STA (10:10)
[2018-10-20] MEDS ORDERED: KETOROLAC 15 MG INJ IV STA (10:10)
[2018-10-20] MEDS ORDERED: DONE10TA7 PO (10:58)
[2018-10-20] MEDS ORDERED: FOL8 PO (10:59)
[2018-10-20] MEDS ORDERED: DULO60CA59 PO (10:59)
[2018-10-20] MEDS ORDERED: FURO40TA4 PO (11:01)
[2018-10-20] MEDS ORDERED: LOSA25TA12 PO (11:01)
[2018-10-20] MEDS ORDERED: FURO20TA3 PO (11:01)
[2018-10-20] MEDS ORDERED: BIMA2.5D BOTH EYES (11:02)
[2018-10-20] MEDS ORDERED: METO-336 PO (11:03)
[2018-10-20] MEDS ORDERED: FAMO20TA18 PO (11:03)
[2018-10-20] MEDS ORDERED: DABI150C PO (11:04)
[2018-10-20] MEDS ORDERED: PRAV40TA76 PO (11:04)
[2018-10-20] MEDS ORDERED: SPIR25TA PO (11:05)
[2018-10-20] MEDS ORDERED: LEVO137T3 PO (11:07)
[2018-10-20] MEDS ORDERED: TERB250T13 PO (11:08)
[2018-10-20] MEDS ORDERED: TRAM50TA PO (11:09)
[2018-10-20] MEDS ORDERED: ACET325T33 PO (11:09)
== END 2018-10-20 11:59 | disposition home or self-care (01) ==
LOC: E/R 09:24
DX: S33.5XXA Sprain of ligaments of lumbar spine, initial encounter (principal); F03.90 Unspecified dementia, unspecified severity, without behavioral disturbance, psychotic disturbance, mood disturbance, and anxiety; F51.01 Primary insomnia; E86.0 Dehydration; I50.9 Heart failure, unspecified; E03.9 Hypothyroidism, unspecified; W01.198A Fall on same level from slipping, tripping and stumbling with subsequent striking against other object, initial encounter; Y92.9 Unspecified place or not applicable
CPT/HCPCS: 70450; 71045; 72100; 72170; 80053; 81003; 83690; 85025; 85610; 85730; 87086; J1885; J7030; 36415; 96374